=== PATIENT | male | born 1945 | race African-American/Black ===

== ENCOUNTER 2017-11-27 18:32 | Inpatient (IN) | payer OTHER ==
--- NOTE | 2017-11-27 19:12 | PDOC ---
History of Present Illness <Mary Aaron - Last Filed: 11/27/17 22:41> - General History Source: Patient Exam Limitations: Clinical Condition, Dementia - History of Present Illness Initial Comments: 11/27/17 19:06 Patient is a 72M with history of dementia, seizures (on keppra and dilantin), schizoaffective disorder, peripheral vascular disease coming from [facility] after being found on the floor. EMS reports that the patient was confused, but patient has dementia at baseline and usually is not oriented to time. Patient states that his chest hurt while he was on the floor, but he states that he does not have chest pain now. Denies fevers, chills, nausea, vomiting. Denies abdominal pain. Family denies history of cardiac issues. <Alex St - Last Filed: 11/28/17 01:48> - General Stated Complaint: DISTORTED VISION Time Seen by Provider: 11/27/17 18:49 Past History <Mary Aaron - Last Filed: 11/27/17 22:41> <Alex St - Last Filed: 11/28/17 01:48> - Past Medical History Allergies/Adverse Reactions: Allergies Allergy/AdvReac Type Severity Reaction Status Date / Time No Known Allergies Allergy Verified 11/27/17 20:59 Home Medications: Ambulatory Orders Acetaminophen 1,000 mg PO Q8H PRN 11/27/17 Bupropion HCl [Wellbutrin Xl] 300 mg PO DAILY 11/27/17 Dorzolamide/Timolol/Pf [Cosopt Pf Eye Drops] 1 each OP BID 11/27/17 Folic Acid 1 mg PO DAILY 11/27/17 Gabapentin [Neurontin -] 300 mg PO Q8H 11/27/17 Latanoprost 0.005% Eye Drops [Xalatan 0.005% Eye Drops -] 1 drop HS 11/27/17 Magnesium Hydrox 2400MG/30Ml [Milk of Magnesia -] 30 ml PO ONCE PRN 11/27/17 Nicotine Patch [Nicoderm Patch -] 1 patch TD DAILY 11/27/17 Phenytoin Na Extended [Dilantin -] 100 mg PO BID 11/27/17 Phenytoin Na Extended [Dilantin -] 200 mg PO HS 11/27/17 Sertraline HCl [Zoloft -] 50 mg PO DAILY 11/27/17 Sodium Phosphate,Jim Hogg-Dibasic [Fleet Enema] 133 ml RC DAILY PRN 11/27/17 Vitamin B Complex 1 each PO DAILY 11/27/17 levETIRAcetam [Keppra Oral Solution -] 750 mg PO BID 11/27/17 Review of Systems - Review of Systems Comments:: 11/27/17 19:10 GENERAL/CONSTITUTIONAL: No fever or chills. No weakness. HEAD, EYES, EARS, NOSE AND THROAT: No change in vision. No sore throat. CARDIOVASCULAR: + chest pain. No shortness of breath RESPIRATORY: No cough, wheezing, or hemoptysis. GASTROINTESTINAL: No nausea, vomiting, diarrhea or constipation. GENITOURINARY: No dysuria, frequency, or change in urination. MUSCULOSKELETAL: No joint or muscle swelling or pain. No neck or back pain. SKIN: No rash NEUROLOGIC: No headache, vertigo, loss of consciousness, or change in strength/ sensation. ENDOCRINE: No increased thirst. No abnormal weight change HEMATOLOGIC/LYMPHATIC: No anemia, easy bleeding, or history of blood clots. ALLERGIC/IMMUNOLOGIC: No hives or skin allergy. <Alex St - Last Filed: 11/28/17 01:48> *Physical Exam - Vital Signs Last Vital Signs Temp Pulse Resp BP Pulse Ox 98.0 F 122 H 16 108/97 100 11/27/17 18:34 11/27/17 18:34 11/27/17 18:34 11/27/17 18:34 11/27/17 18:34 <Mary Aaron - Last Filed: 11/27/17 22:41> - Physical Exam Comments: 11/27/17 19:10 GENERAL: Awake, alert, and fully oriented, in no acute distress HEAD: No signs of trauma, normocephalic, atraumatic EYES: PERRLA, EOMI, sclera anicteric, conjunctiva clear ENT: Auricles normal inspection, hearing grossly normal, nares patent, oropharynx clear without exudates. Moist mucosa NECK: Normal ROM, supple, no lymphadenopathy, JVD, or masses, no midline posterior tenderness LUNGS: No distress, speaks full sentences, clear to auscultation bilaterally HEART: Regular rate and rhythm, normal S1 and S2, no murmurs, rubs or gallops, peripheral pulses normal and equal bilaterally. ABDOMEN: Soft, nontender, normoactive bowel sounds. No guarding, no rebound. No masses EXTREMITIES: Normal inspection, Normal range of motion, no edema. No clubbing or cyanosis. NEUROLOGICAL: Cranial nerves II through XII grossly intact. Normal speech, no focal sensorimotor deficits SKIN: Warm, Dry, normal turgor, no rashes or lesions noted. <Alex St - Last Filed: 11/28/17 01:48> ED Treatment Course - LABORATORY CBC & Chemistry Diagram: 11/27/17 19:34 11/27/17 19:34 - ADDITIONAL ORDERS Additional order review: Laboratory Results 11/27/17 11/27/17 11/27/17 19:34 19:34 19:34 PT with INR 13.80 H INR 1.22 H Sodium 142 Potassium 4.8 Chloride 106 Carbon Dioxide 27 Anion Gap 9 BUN 10 Creatinine 1.1 Creat Clearance w eGFR > 60 Random Glucose 134 H Calcium 9.5 Magnesium 2.2 Total Bilirubin 0.4 AST 21 ALT 21 Alkaline Phosphatase 155 H Creatine Kinase 117 Troponin I 1.61 H* Total Protein 8.3 H Albumin 3.6 Phenytoin 14.0 11/27/17 19:34 RBC 5.05 MCV 87.2 MCHC 32.9 RDW 14.1 MPV 8.3 Neutrophils % 71.3 Lymphocytes % 17.7 Monocytes % 9.4 Eosinophils % 1.1 Basophils % 0.5 - Medications Given in the ED: ED Medications Discontinued Medications Generic Name Dose Route Start Last Admin Trade Name Freq PRN Reason Stop Dose Admin Heparin Sodium (Porcine) 5,000 unit 11/27/17 20:56 11/27/17 21:52 Heparin - IVPUSH 11/27/17 20:57 5,000 unit NOW ONE Administration <Mary Aaron - Last Filed: 11/27/17 22:41> - LABORATORY CBC & Chemistry Diagram: 11/27/17 19:34 11/27/17 19:34 - RADIOLOGY Radiology Studies Ordered: Category Date Time Status CHEST X-RAY PORTABLE* [RAD] Stat Radiology 11/27/17 19:00 Ordered <Alex St - Last Filed: 11/28/17 01:48> Medical Decision Making - Critical Care Time Total Critical Care Time (minutes): 120 Critical Care Statement: The care of this patient involved high complexity decision making to prevent further life threatening deterioration of the patient 's condition and/or to evaluate & treat vital organ system(s) failure or risk of failure. - Medical Decision Making 11/27/17 19:10 Patient is 72M with history of schizoaffective disorder, seizures, peripheral vascular disease here today after being found down. DDx weighted towards seizure vs syncope. Will evaluate with cardiac labs, dilantin and keppra levels sent for further workup by inpatient team. Head CT ordered as I cannot clear patient clinically due to dementia, but believe significant injury is very unlikely. 11/27/17 23:58 Received critical value of troponin of 1.6. Patient reassessed, found to have decreased mental status. EKG showed atrial tachycardia with rate of 139. Inverted p waves in II, do not believe sinus rhythm. Diffusely flattened t waves in lateral leads. Normal axis. Bedside ultrasound showed dilated right ventricle with bowing into left ventricle. DVT in right popliteal vein visualized as well. Patient given IV fluid bolus and taken to CT scan. Wet read of CT head showed no bleed. Wet read of CTA showed bilateral PE. Patient returned to ED, BP 70/50. Second IV placed with ultrasound. Additional fluids given. Given heparin bolus. Family consulted for tPA, either systemic or thrombectomy, family agreed to either. IR call placed, could see patient in an hour to do procedure. Patient blood pressures improved to 90/70. Now in IR. Admitted to ICU via [facility], approved by Dr White for ICU. 11/28/17 01:45 Received call from IR, patient hypotensive to 60/30s in IR suite. Central line placed by IR. Levophed drip started. Patient returned to ED, BPs improved, patient mental status has improved greatly. Last BP 117/70. <Alex St - Last Filed: 11/28/17 01:48> *DC/Admit/Observation/Transfer - Discharge Dispostion Decision to Admit order: Yes <Mary Aaron - Last Filed: 11/27/17 22:41> - Discharge Dispostion Decision to Admit order: Yes <Alex St - Last Filed: 11/28/17 01:48> Diagnosis at time of Disposition: Pulmonary embolism - Discharge Dispostion Condition at time of disposition: Critical
--- NOTE | 2017-11-27 19:25 | PDOC ---
Attending Attestation - Resident Resident Name: Alex St - ED Attending Attestation I have performed the following: I have examined & evaluated the patient, The case was reviewed & discussed with the resident, I agree w/resident's findings & plan, Exceptions are as noted - HPI HPI: 11/27/17 19:20 72 yo male with h/o seizure disorder, here today with unwitness fall,and breif confusion following. pt has had h/o seizures is on dilantin and keppra, today had u no think he was n with normal S1 anwitness episode. was found on floor, was confused a time. on waking up on the floor states he was having chest pain. is unable to further qualify pain. no cough no f/c no urinary complaints. no incontinence . no known cad or h/o stents. now currently at baseline per sister who is at the bedside. - Physicial Exam PE: 11/27/17 19:23 awake alert lungs clear bilaterally . heart rrr no mrg. abd soft nt nd. ext wwp. nuero alert oriented x 2 ( disoriented to year baseline), facies symmetric. CN intact. 5/5 right upper and lower extsremity. left upper ext 4+/5 , left leg 4/5. unsure Lactate on if new or old. ext atraumatic. - Medical Decision Making 11/27/17 19:24 differential diagnosis includes seizure, syncope from dysrhtymia, dehydration infection, acs. left sided weakness noted unsure of age of sxs. plan ct head r/ o traumatic injury or cva. cxr ekg trop labs dilantin and keppra levels. due to chest pain following pt will require admission for obs. for r/o dysrhtymia and acs. 11/27/17 22:32 pt becamse tachycardic with heart rate into the 130's. focused ED us TTE performed. ED focused TTE: indication: chest pain syncope suspected PE severely dilated RV noted, hypokinetic RV with tricuspid regurgitation appreciated on color doppler LV hypodistended, RV septum bulging into LV dilated RA also. no pericardial effusion impression: RV dilation and strain pattern bilateral dopplers performed lower extremities right common femoral scanned with color flow and full compression noted past bifurcation into femorals. right popliteal with incomplete compression, visualized central hyperechoic thrombus past trifurcation. no augmentation. left common femoral with full compression and flow past bifurcation into superficial and deep femorals. left popliteal veins clear, full compression impression: right popliteal DVT past trifurcation. 11/27/17 22:36 pt immediately sent to CT to evaluate for PE, ct head obtained prior to r/o traumatic bleed . negative for gross blood. cta with positive PE, due to large RV strain and pt becoming hypotensive, given heparain and heparin bolus. d/w IR dr. Ryan who agreed to do thrombectomy and localized TPA. d/w pt sister who is agreeable with procedure, pt is full code. bp improved slightly with iv fluids. <Mary Aaron - Last Filed: 11/27/17 22:32> - Medical Decision Making 11/27/17 20:23 Call placed to cardiology labor relations teacher, Dr. Segovia. Awaiting call back. 8:26pm Call returned from Dr. Braga, case was discussed with resident. 8:18pm Call placed to Dr. Miky Ryan, IR labor relations teacher, case was discussed. 11/28/17 12:34am Call placed to Dr. Lee, labor relations teacher plant physiology teacher, awaiting call back. 12:35am Call returned from Dr. Turner, labor relations teacher for Dr. Lee, case was discussed with resident. 01:05am Call placed to Dr. Turner, labor relations teacher for Dr. Lee, awaiting call back. 01:31am Call returned from Dr. Turner, case was discussed with resident. <Tr Higuera - Last Filed: 11/28/17 01:32> Heart Score/ECG Review #1 ECG reviewed & interpreted by me at: 20:29 General ECG Interpretation: Sinus Rhythm, Normal Intervals, No acute ischemic changes Compared to previous ECG there are: Other (sinus tachycardia 139 bpm, Q III, AVF, ST depression V4 - V5) <Mary Aaron - Last Filed: 11/27/17 22:32> Attestations - Attestations 11/27/17 20:28 Documentation prepared by Tr Higuera, acting as medical van driver for Mary Aaron MD. <Tr Higuera - Last Filed: 11/28/17 01:32>
[2017-11-27 19:52] LABS: BASO % 0.5 % (0-2.0); EOS % 1.1 % (0-4.5); HEMATOCRIT 44.1 % (35.4-49); HEMOGLOBIN 14.5 GM/dL (11.7-16.9); LYMPH % 17.7 % (8-40); MCH 28.7 pg (25.7-33.7); MCHC 32.9 g/dl (32.0-35.9); MEAN CELL VOLUME 87.2 fl (80-96); MEAN PLT VOLUME 8.3 fl (7.5-11.1); MONO % 9.4 % (3.8-10.2); NEUT % 71.3 % (42.8-82.8); PLATELET COUNT 197 K/MM3 (134-434); RBC 5.05 M/mm3 (4.00-5.60); RDW 14.1 % (11.9-15.9); WHITE BLOOD COUNT 11.2 K/mm3 (4.0-10.0)
[2017-11-27 20:05] LABS: INR 1.22 (0.83-1.09); PROTHROMBIN TIME (PATIENT) 13.8 SEC (9.7-13.0)
[2017-11-27 20:15] LABS: ALBUMIN 3.6 g/dl (3.4-5.0); ANION GAP 9 (8-16); BILIRUBIN,TOTAL 0.4 mg/dL (0.2-1.0); BLOOD UREA NITROGEN 10 mg/dL (7-18); CALCIUM 9.5 mg/dL (8.5-10.1); CHLORIDE 106 mmol/L (98-107); CO2 27 mmol/L (21-32); CREATININE 1.1 mg/dL (0.7-1.3); GLUCOSE,RANDOM 134 mg/dL (74-106); MAGNESIUM 2.2 mg/dL (1.8-2.4); POTASSIUM 4.8 mmol/L (3.5-5.1); SGOT/AST 21 U/L (15-37); SGPT/ALT 21 U/L (12-78); SODIUM 142 mmol/L (136-145); TOT PROT 8.3 g/dl (6.4-8.2)
[2017-11-27 20:18] LABS: ALK PHOS 155 U/L (45-117)
[2017-11-27] MEDS ORDERED: ASPIRIN 81 MG CHEWABLE TABLETS PO ONE (20:21)
[2017-11-27] MEDS ORDERED: HEPARIN NA (PORCINE) 5,000 UNITS/ML 1ML VIAL IVPUSH PRN ×2 (20:52)
[2017-11-27] MEDS ORDERED: HEPARIN NA (PORCINE) 5,000 UNITS/ML 1ML VIAL IVPUSH ONE (20:56)
[2017-11-27] MEDS ORDERED: HEPARIN - 25,000 UNIT in SODIUM CHLORIDE 495 ML IV SCH (21:00)
[2017-11-27] MEDS ORDERED: HEPARIN INFUSION - 25,000 UNITS/500 ML INFUS.BAG IVPB ONE (21:02)
[2017-11-27] MEDS ORDERED: HEPARIN NA (PORCINE) 5,000 UNITS/ML 1ML VIAL ONE (21:02)
--- NOTE | 2017-11-27 22:25 | CONSULT ---
Consultation: REQUESTING PROVIDER: CONSULT REQUEST: We have been asked to medically evaluate this patient for ICU monitoring. HISTORY OF PRESENT ILLNESS: 72 y/o male with PMH of DM, seizures (on keppra and dilantin), schizoaffective disorder, PVD, dementia at baseline was brought in by EMS after being found on the floor at the correction. The correction thought that he had suffered a seizure. Patient had chest pain while he was on the floor, however, when he arrived to the hospital patient did not have any chest pain. in the ED, patient was found to be tachycardic, with an elevated WBC count of 11.2. and an elevated troponin of 1.61. On CTA of chest patient was found to have B/L pulmonary embolism and also found to have a R popliteal DVT. Patient started on a heparin drip and underwent emergent thrombectomy with successful disruption of the clots. patient became hypotensive in the IR suite and a central line was placed and patient was started on levophed. REVIEW OF SYSTEMS: CONSTITUTIONAL: Absent: fever, chills, diaphoresis, generalized weakness, malaise, loss of appetite, weight change HEENT: Absent: rhinorrhea, nasal congestion, throat pain, throat swelling, difficulty swallowing, mouth swelling, ear pain, eye pain, visual changes CARDIOVASCULAR: Absent: chest pain, syncope, palpitations, irregular heart rate, lightheadedness , peripheral edema RESPIRATORY: Present: shortness of breath, Absent: dyspnea with exertion, orthopnea, wheezing, stridor, hemoptysis GASTROINTESTINAL: Absent: abdominal pain, abdominal distension, nausea, vomiting, diarrhea, constipation, melena, hematochezia GENITOURINARY: Absent: dysuria, frequency, urgency, hesitancy, hematuria, flank pain, genital pain MUSCULOSKELETAL: Absent: myalgia, arthralgia, joint swelling, back pain, neck pain SKIN: Absent: rash, itching, pallor HEMATOLOGIC/IMMUNOLOGIC: Absent: easy bleeding, easy bruising, lymphadenopathy, frequent infections ENDOCRINE: Absent: unexplained weight gain, unexplained weight loss, heat intolerance, cold intolerance NEUROLOGIC: Present: headache, Absent: focal weakness or paresthesias, dizziness, unsteady gait, seizure, mental status changes, bladder or bowel incontinence PSYCHIATRIC: Absent: anxiety, depression, suicidal or homicidal ideation, hallucinations. PHYSICAL EXAMINATION Vital Signs - 24 hr 11/27/17 18:34 Temperature 98.0 F Pulse Rate 122 H Respiratory 16 Rate Blood Pressure 108/97 O2 Sat by Pulse 100 Oximetry (%) GENERAL: Awake, alert, and slightly lethargic, in no acute distress. LUNGS: CTA B/L; no rales,rhonchi,wheezing. HEART: Regular rate and rhythm, normal S1 and S2 without murmur, rub or gallop. ABDOMEN: Soft, nontender, not distended, normoactive bowel sounds, no guarding, no rebound, no masses. No hepatomegaly or splenomegaly. MUSCULOSKELETAL: Normal range of motion at all joints. No bony deformities or tenderness. No CVA tenderness. EXTREMITIES:warm, well peffused, no LE edema NEUROLOGICAL: baseline dementia;; AAO X2 PSYCHIATRIC: Cooperative. Good eye contact. Appropriate mood and affect. SKIN: Warm, dry, normal turgor, no rashes or lesions noted. Laboratory Results - last 24 hr 11/27/17 11/27/17 11/27/17 19:34 19:34 19:34 WBC 11.2 H RBC 5.05 Hgb 14.5 Hct 44.1 MCV 87.2 MCH 28.7 MCHC 32.9 RDW 14.1 Plt Count 197 MPV 8.3 Absolute Neuts (auto) 8.0 Neutrophils % 71.3 Lymphocytes % 17.7 Monocytes % 9.4 Eosinophils % 1.1 Basophils % 0.5 Nucleated RBC % 0 PT with INR 13.80 H INR 1.22 H Sodium 142 Potassium 4.8 Chloride 106 Carbon Dioxide 27 Anion Gap 9 BUN 10 Creatinine 1.1 Creat Clearance w eGFR > 60 Random Glucose 134 H Calcium 9.5 Magnesium 2.2 Total Bilirubin 0.4 AST 21 ALT 21 Alkaline Phosphatase 155 H Creatine Kinase 117 Troponin I 1.61 H* Total Protein 8.3 H Albumin 3.6 Phenytoin 11/27/17 19:34 WBC RBC Hgb Hct MCV MCH MCHC RDW Plt Count MPV Absolute Neuts (auto) Neutrophils % Lymphocytes % Monocytes % Eosinophils % Basophils % Nucleated RBC % PT with INR INR Sodium Potassium Chloride Carbon Dioxide Anion Gap BUN Creatinine Creat Clearance w eGFR Random Glucose Calcium Magnesium Total Bilirubin AST ALT Alkaline Phosphatase Creatine Kinase Troponin I Total Protein Albumin Phenytoin 14.0 Active Medications Generic Name Dose Route Start Last Admin Trade Name Freq PRN Reason Stop Dose Admin Heparin Sodium (Porcine) 1,000 unit 11/27/17 20:52 Heparin - IVPUSH PRN PRN Heparin Heparin Sodium (Porcine) 5,000 unit 11/27/17 20:52 Heparin - IVPUSH PRN PRN Heparin Heparin Sodium (Porcine) 25, 500 mls @ 16 mls/hr 11/27/17 21:00 11/27/17 21: 51 000 unit/ Sodium Chloride IV 800 unit/hr TITR ESTEFANIA 16 mls/hr Administration Protocol 800 UNIT/HR Sodium Chloride 1,000 mls @ 83 mls/hr 11/27/17 21:45 Normal Saline - IV ASDIR [facility] ASSESSMENT/PLAN: 72 y/o male with PMH of DM, seizures (on keppra and dilantin), PVD, schizoaffective disorder, baseline dementia, presents to the ED from correction after falling and having pain in the chest accompanied by dyspnea, found to have B/L pulmonary emboli on CTA in addition to a DVT in the right popliteal vein. patient underwent an emergent thrombectomy with successful disruption of the clots. Patient currently has a central line and is on levophed. Bilateral Pulmonary Emboli: patient underwent thrombectomy for B/L PE received unclear if provoked or unprovoked -currently on Heparin drip -monitor INR -monitor CBC, BMP -on fluids @ 83mls/hr -HEME consult ordered -repeat CXR in AM Cardio: troponemia possibly 2/2 to PE vs. demand ischemia hypotension -needed central line in IR; currently on levophed 15 mcg -monitor hemodynamics, keep MAP at 65 -trend troponins - repeat EKG in AM Neuro: seizure disorder -restart home meds -keppra level Schizoaffective disorder: restart hoem medications DVT Prophylaxis: Heparin Drip F/E/N: NS @83mls/hr replete electrolytes when necessary dispo: continue ICU monitoring Dispo: We will continue to follow the patient. Thank you for this consultative opportunity. Problem List - Problems (1) Elevated troponin I level Code(s): R74.8 - ABNORMAL LEVELS OF OTHER SERUM ENZYMES (2) Hypotension Code(s): I95.9 - HYPOTENSION, UNSPECIFIED (3) Pulmonary embolism Code(s): I26.99 - OTHER PULMONARY EMBOLISM WITHOUT ACUTE COR PULMONALE (4) Schizoaffective disorder Code(s): F25.9 - SCHIZOAFFECTIVE DISORDER, UNSPECIFIED (5) Seizure disorder Code(s): G40.909 - EPILEPSY, UNSP, NOT INTRACTABLE, WITHOUT STATUS EPILEPTICUS Visit type - Emergency Visit Emergency Visit: Yes ED Registration Date: 11/27/17 Care time: The patient presented to the Emergency Department on the above date and was hospitalized for further evaluation of their emergent condition. - New Patient This patient is new to me today: Yes Date on this admission: 11/28/17 - Critical Care Critical Care patient: Yes Total Critical Care Time (in minutes): 35 Critical Care Statement: The care of this patient involved high complexity decision making to prevent further life threatening deterioration of the patient 's condition and/or to evaluate & treat vital organ system(s) failure or risk of failure.
[2017-11-27] MEDS: SODIUM CHLORIDE 1,000 ML IV SCH (22:46)
--- NOTE | 2017-11-27 23:27 | HP ---
CHIEF COMPLAINT: Chest Pain PCP: Dr. Askew HISTORY OF PRESENT ILLNESS: This is a 72 y/o man from [facility] with a PMHx of: Seizures (on Dilantin, Keppra), Schizoaffective Disorder, Dementia, PVD. BIBA to the ED for evaluation was found on the floor at the facility c/o chest pain which resolved in ED. Patient has Dementia unable to obtain HPI. Patient was transported to IR for Thrombectomy, TPA. ER course was notable for: (1) CTA- Multiple PE (2) Troponin 1.61 (3) Recent Travel: None PAST MEDICAL HISTORY: See HPI PAST SURGICAL HISTORY: Social History: Smoking: Unknown Alcohol: None Drugs: None Resides in SNF Family History: Unable to obtain Allergies No Known Allergies Allergy (Verified 11/27/17 20:59) HOME MEDICATIONS: Home Medications Medication Instructions Recorded Acetaminophen 1,000 mg PO Q8H PRN 11/27/17 Bupropion HCl [Wellbutrin Xl] 300 mg PO DAILY 11/27/17 Dorzolamide/Timolol/Pf [Cosopt Pf 1 each OP BID 11/27/17 Eye Drops] Folic Acid 1 mg PO DAILY 11/27/17 Gabapentin [Neurontin -] 300 mg PO Q8H 11/27/17 Latanoprost 0.005% Eye Drops 1 drop HS 11/27/17 [Xalatan 0.005% Eye Drops -] Magnesium Hydrox 2400MG/30Ml [Milk 30 ml PO ONCE PRN 11/27/17 of Magnesia -] Nicotine Patch [Nicoderm Patch -] 1 patch TD DAILY 11/27/17 Phenytoin Na Extended [Dilantin -] 100 mg PO BID 11/27/17 Phenytoin Na Extended [Dilantin -] 200 mg PO HS 11/27/17 Sertraline HCl [Zoloft -] 50 mg PO DAILY 11/27/17 Sodium Phosphate,[place]-Dibasic 133 ml RC DAILY PRN 11/27/17 [Fleet Enema] Vitamin B Complex 1 each PO DAILY 11/27/17 levETIRAcetam [Keppra Oral 750 mg PO BID 11/27/17 Solution -] REVIEW OF SYSTEMS Dementia: Unable to Obtain CONSTITUTIONAL: Absent: fever, chills, diaphoresis, generalized weakness, malaise, loss of appetite, weight change HEENT: Absent: rhinorrhea, nasal congestion, throat pain, throat swelling, difficulty swallowing, mouth swelling, ear pain, eye pain, visual changes CARDIOVASCULAR: Absent: chest pain, syncope, palpitations, irregular heart rate, lightheadedness , peripheral edema RESPIRATORY: Absent: cough, shortness of breath, dyspnea with exertion, orthopnea, wheezing, stridor, hemoptysis GASTROINTESTINAL: Absent: abdominal pain, abdominal distension, nausea, vomiting, diarrhea, constipation, melena, hematochezia GENITOURINARY: Absent: dysuria, frequency, urgency, hesitancy, hematuria, flank pain, genital pain MUSCULOSKELETAL: Absent: myalgia, arthralgia, joint swelling, back pain, neck pain SKIN: Absent: rash, itching, pallor HEMATOLOGIC/IMMUNOLOGIC: Absent: easy bleeding, easy bruising, lymphadenopathy, frequent infections ENDOCRINE: Absent: unexplained weight gain, unexplained weight loss, heat intolerance, cold intolerance NEUROLOGIC: Absent: headache, focal weakness or paresthesias, dizziness, unsteady gait, seizure, mental status changes, bladder or bowel incontinence PSYCHIATRIC: Absent: anxiety, depression, suicidal or homicidal ideation, hallucinations. PHYSICAL EXAMINATION Vital Signs - 24 hr 11/27/17 11/27/17 11/27/17 18:34 19:00 20:40 Temperature 98.0 F 98.0 F Pulse Rate 122 H 110 H Pulse Rate [ 120 H Apical] Respiratory 16 16 Rate Blood Pressure 108/97 Blood Pressure 98/52 [Right Arm] O2 Sat by Pulse 100 95 94 L Oximetry (%) 11/27/17 11/27/17 22:45 23:00 Temperature Pulse Rate Pulse Rate [ 111 H 114 H Apical] Respiratory 16 16 Rate Blood Pressure Blood Pressure 107/61 96/71 [Right Arm] O2 Sat by Pulse 98 98 Oximetry (%) GENERAL: Awake, Alert to name at baseline, no acute distress. HEAD: Normal with no signs of trauma. EYES: Pupils equal, round and reactive to light, extraocular movements intact, sclera anicteric, conjunctiva clear. No lid lag. EARS, NOSE, THROAT: Ears normal, nares patent, oropharynx clear without exudates. Dry mucous membranes. NECK: Normal range of motion, supple without lymphadenopathy, JVD, or masses. LUNGS: Breath sounds diminished to bases No wheezes, and no crackles. No accessory muscle use. HEART: Regular rate and rhythm, normal S1 and S2 without murmur, rub or gallop. ABDOMEN: Soft, nontender, not distended, normoactive bowel sounds, no guarding, no rebound, no masses. No hepatomegaly or splenomegaly. GROIN: Triple Lumen Catheter to R- groin MUSCULOSKELETAL: Normal range of motion at all joints. No bony deformities or tenderness. No CVA tenderness. UPPER EXTREMITIES: 2+ pulses, warm, well-perfused. No cyanosis. No clubbing. No peripheral edema. LOWER EXTREMITIES: 2+ pulses, warm, well-perfused. No calf tenderness. No peripheral edema. NEUROLOGICAL: Cranial nerves II-XII intact. Normal speech. Gait not observed. PSYCHIATRIC: Cooperative. Good eye contact. Appropriate mood and affect. SKIN: Warm, dry, normal turgor, no rashes or lesions noted, normal capillary refill. Laboratory Results - last 24 hr 11/27/17 11/27/17 11/27/17 19:34 19:34 19:34 WBC 11.2 H RBC 5.05 Hgb 14.5 Hct 44.1 MCV 87.2 MCH 28.7 MCHC 32.9 RDW 14.1 Plt Count 197 MPV 8.3 Absolute Neuts (auto) 8.0 Neutrophils % 71.3 Lymphocytes % 17.7 Monocytes % 9.4 Eosinophils % 1.1 Basophils % 0.5 Nucleated RBC % 0 PT with INR 13.80 H INR 1.22 H Sodium 142 Potassium 4.8 Chloride 106 Carbon Dioxide 27 Anion Gap 9 BUN 10 Creatinine 1.1 Creat Clearance w eGFR > 60 Random Glucose 134 H Calcium 9.5 Magnesium 2.2 Total Bilirubin 0.4 AST 21 ALT 21 Alkaline Phosphatase 155 H Creatine Kinase 117 Troponin I 1.61 H* Total Protein 8.3 H Albumin 3.6 Phenytoin 11/27/17 19:34 WBC RBC Hgb Hct MCV MCH MCHC RDW Plt Count MPV Absolute Neuts (auto) Neutrophils % Lymphocytes % Monocytes % Eosinophils % Basophils % Nucleated RBC % PT with INR INR Sodium Potassium Chloride Carbon Dioxide Anion Gap BUN Creatinine Creat Clearance w eGFR Random Glucose Calcium Magnesium Total Bilirubin AST ALT Alkaline Phosphatase Creatine Kinase Troponin I Total Protein Albumin Phenytoin 14.0 ASSESSMENT/PLAN: 72 y/o man Admitted to ICU for PE, Seizure Disorder, Elevated Troponin I for further evaluation of their emergent condition. Plan: 1. 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 Cardiology: Hypotension, Elevated Troponin Likely secondary to PE vs Demand Ischemia Started on Norepinephine in IR, will continue Continue IVF Serial Enzymes Appreciate Cardiology consult EKG- reviewed Repeat EKG in am 3. Neuro: Seizure Disorder Continue home meds Seizure Precautions Fall Precautions 4. Psych: Schizoaffective Disorder, Dementia Continue home meds 5. FEN - IVF - Replete lytes prn - NPO 6. DVT ppx - On Heparin Protocol for PE Code Status: Full Code Dispo: Requires Inpatient Care Problem List - Problem (1) Pulmonary embolism Code(s): I26.99 - OTHER PULMONARY EMBOLISM WITHOUT ACUTE COR PULMONALE (2) Hypotension Code(s): I95.9 - HYPOTENSION, UNSPECIFIED (3) Elevated troponin I level Code(s): R74.8 - ABNORMAL LEVELS OF OTHER SERUM ENZYMES (4) Seizure disorder Code(s): G40.909 - EPILEPSY, UNSP, NOT INTRACTABLE, WITHOUT STATUS EPILEPTICUS (5) Schizoaffective disorder Code(s): F25.9 - SCHIZOAFFECTIVE DISORDER, UNSPECIFIED (6) PVD (peripheral vascular disease) Code(s): I73.9 - PERIPHERAL VASCULAR DISEASE, UNSPECIFIED (7) Dementia Code(s): F03.90 - UNSPECIFIED DEMENTIA WITHOUT BEHAVIORAL DISTURBANCE Visit type - Emergency Visit Emergency Visit: Yes ED Registration Date: 11/27/17 Care time: The patient presented to the Emergency Department on the above date and was hospitalized for further evaluation of their emergent condition. - New Patient This patient is new to me today: Yes Date on this admission: 11/27/17 - Critical Care Critical Care patient: Yes Total Critical Care Time (in minutes): 40 Critical Care Statement: The care of this patient involved high complexity decision making to prevent further life threatening deterioration of the patient 's condition and/or to evaluate & treat vital organ system(s) failure or risk of failure. Hospitalist Screening - Colonoscopy Questionnaire Colonoscopy Questionnaire: Colonoscopy Questionnaire - Patient: 50 - 75 years old and never had a screening colonoscopy: Unknown History of colon or rectal polyps, or CA: Unknown History of IBD, Crohn's disease or UC: Unknown History of abdominal radiation therapy as a child: Unknown - Relative: 1 with colon or rectal CA, or polyps at age 60 or younger: Unknown Colon or rectal CA diagnosed at age 45 or younger: Unknown Multiple relatives with colon or rectal CA: Unknown - Outcome: Screening Result: Negative Screen
[2017-11-27] MEDS ORDERED: ALTEPLASE 50 MG VIAL IVPB ONE (23:45)
[2017-11-28] MEDS ORDERED: NOREPINEPHRINE BITARTRATE 4,000 MCG in DEXTROSE 5%-WATER - 496 ML IV SCH (00:45)
[2017-11-28] MEDS: HEPARIN INFUSION - 25,000 UNITS/500 ML INFUS.BAG IVPB SCH (07:08)
[2017-11-28] MEDS: NOREPINEPHRINE BITARTRATE 8,000 MCG in DEXTROSE 5%-WATER - 492 ML IV SCH ×2 (07:09→10:24)
[2017-11-28 07:13] LABS: BASO % 0.3 % (0-2.0); EOS % 0.1 % (0-4.5); HEMATOCRIT 35.9 % (35.4-49); HEMOGLOBIN 11.8 GM/dL (11.7-16.9); LYMPH % 16.3 % (8-40); MCH 29.2 pg (25.7-33.7); MCHC 33.1 g/dl (32.0-35.9); MEAN CELL VOLUME 88.5 fl (80-96); MEAN PLT VOLUME 8.9 fl (7.5-11.1); MONO % 11.5 % (3.8-10.2); NEUT % 71.8 % (42.8-82.8); PLATELET COUNT 162 K/MM3 (134-434); RBC 4.05 M/mm3 (4.00-5.60); RDW 14.4 % (11.9-15.9); WHITE BLOOD COUNT 13.5 K/mm3 (4.0-10.0)
[2017-11-28 07:53] LABS: CHLORIDE 114 mmol/L (98-107); SODIUM 145 mmol/L (136-145)
[2017-11-28 08:07] LABS: ALBUMIN 2.7 g/dl (3.4-5.0); ALK PHOS 120 U/L (45-117); ANION GAP 12 (8-16); BLOOD UREA NITROGEN 15 mg/dL (7-18); CO2 19 mmol/L (21-32); CREATININE 1.1 mg/dL (0.7-1.3); GLUCOSE,RANDOM 149 mg/dL (74-106); PHOSPHOROUS 2.2 mg/dL (2.5-4.9); SGPT/ALT 100 U/L (12-78); TOT PROT 6.4 g/dl (6.4-8.2)
[2017-11-28 08:22] LABS: MAGNESIUM 2.1 mg/dL (1.8-2.4); SGOT/AST 33 U/L (15-37)
[2017-11-28] MEDS ORDERED: PNEUMOC 13-VAL CONJ-DIP CRM/PF 0.5 ML DISP.SYRIN IM ONE (10:00)
[2017-11-28] MEDS ORDERED: NOREPINEPHRINE BITARTRATE 4 MG/4 ML ML IV ONE (10:11)
--- NOTE | 2017-11-28 10:12 | CONSULT ---
Consult Consult Specialty:: Hematology Referred by:: ICU - medicine Reason for Consultation:: Recent PE - History of Present Illness Chief Complaint: Patient, resident of [place], found on floor, complaining of chest pain, brought to ER, found to have bilateral PE, with positive tropinins, RV dilatation, and LE DVT. Underwent thrombolysis with good outcome. Hypotensive after procedure, and admitted to ICU, with inotropic support. Patient feeling well now, no complaints. History of Present Illness: As above. Preceding history not known. Patient denies recent unusual circumstances potentially putting him at risk of thromboembolic events. Baseline dementia, questionable reliability of patient's history. Denies knowledge of prior thromboembolic events. 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 Cardio/Vascular: Yes: Other (Peripheral vascular disease.) - Alcohol/Substance Use Hx Alcohol Use: No - Smoking History Smoking history: Never smoked Have you smoked in the past 12 months: No Home Medications - Allergies Allergies/Adverse Reactions: Allergies Allergy/AdvReac Type Severity Reaction Status Date / Time No Known Allergies Allergy Verified 11/27/17 20:59 - Home Medications Home Medications: Ambulatory Orders Acetaminophen 1,000 mg PO Q8H PRN 11/27/17 Bupropion HCl [Wellbutrin Xl] 300 mg PO DAILY 11/27/17 Dorzolamide/Timolol/Pf [Cosopt Pf Eye Drops] 1 each OP BID 11/27/17 Folic Acid 1 mg PO DAILY 11/27/17 Gabapentin [Neurontin -] 300 mg PO Q8H 11/27/17 Latanoprost 0.005% Eye Drops [Xalatan 0.005% Eye Drops -] 1 drop HS 11/27/17 Magnesium Hydrox 2400MG/30Ml [Milk of Magnesia -] 30 ml PO ONCE PRN 11/27/17 Nicotine Patch [Nicoderm Patch -] 1 patch TD DAILY 11/27/17 Phenytoin Na Extended [Dilantin -] 100 mg PO BID 11/27/17 Phenytoin Na Extended [Dilantin -] 200 mg PO HS 11/27/17 Sertraline HCl [Zoloft -] 50 mg PO DAILY 11/27/17 Sodium Phosphate,[place]-Dibasic [Fleet Enema] 133 ml RC DAILY PRN 11/27/17 Vitamin B Complex 1 each PO DAILY 11/27/17 levETIRAcetam [Keppra Oral Solution -] 750 mg PO BID 11/27/17 Physical Exam Vital Signs: Vital Signs Temperature 97.7 F 11/28/17 06:00 Pulse Rate 87 11/28/17 08:00 Respiratory Rate 18 11/28/17 08:43 Blood Pressure 120/73 11/28/17 08:00 O2 Sat by Pulse Oximetry (%) 97 11/28/17 08:43 Constitutional: Yes: Well Nourished, Calm. No: Diaphoresis Eyes: Yes: Conjunctiva Clear. No: Sclera Icterus HENT: Yes: Atraumatic, Normocephalic Neck: Yes: Supple Cardiovascular: Yes: Regular Rate and Rhythm, S1, S2. No: Gallop, Murmur Respiratory: Yes: CTA Bilaterally, Diminished Gastrointestinal: Yes: Normal Bowel Sounds, Soft. No: Ascites, Distention, Hepatomegaly, Splenomegaly Musculoskeletal: Yes: Joint Swelling (RLE swelling below level of knee) Peripheral Pulses WNL: Yes Integumentary: No: Bruising, Petechiae Neurological: Yes: Alert, Oriented, Cran Nerves II-XII Intact ...Motor Strength: WNL Psychiatric: Yes: WNL Labs: CBC, BMP 11/28/17 05:30 11/28/17 05:30 Assessment/Plan [facility] resident, with apparently unprovoked, significant thromboembolic event ( large PE, with troponin spill and RV dilatation), now s/p successful thrombolysis. Hypotensive following procedure but doing well on levophed. Significant drop in Hct noted over night. May be related to fluid administered, but needs close monitoring of Hct, in light of significant risk of hemorrhage, s /p tPA, and while on heparin gtt. Will require 3 months of anticoagulation, and the consideration for extension of AC based on assessment of risk of hemorrhage on AC, vs risk of recurrent events. If this index event is confirmed to unprovoked, with no revresible risk factors, then in light of severity of event, a strong case can made for extended (lifelong) AC, assuming no contraindications. Going forward, if patient is on antiseizure medications then drug-interaction profile may favor use of a DOAC, vs warfarin. Age appropriate cancer screening. Please call with questions.
--- NOTE | 2017-11-28 10:37 | CON.CARD ---
Consult Consult Specialty:: cardio - History of Present Illness Chief Complaint: found on floor History of Present Illness: 72 yo M [facility] resident found on floor at facility, sent to ER. reported CP in ER. EKG showed atrial tach at 130s bpm. CTA showed bilateral PEs, LE duplex + DVT. bedside echo in ER reportedly with RV dilation. 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 Cardio/Vascular: Yes: Other (Peripheral vascular disease.) - Alcohol/Substance Use Hx Alcohol Use: No - Smoking History Smoking history: Never smoked Have you smoked in the past 12 months: No Home Medications - Allergies Allergies/Adverse Reactions: Allergies Allergy/AdvReac Type Severity Reaction Status Date / Time No Known Allergies Allergy Verified 11/27/17 20:59 - Home Medications Home Medications: Ambulatory Orders Acetaminophen 1,000 mg PO Q8H PRN 11/27/17 Bupropion HCl [Wellbutrin Xl] 300 mg PO DAILY 11/27/17 Dorzolamide/Timolol/Pf [Cosopt Pf Eye Drops] 1 each OP BID 11/27/17 Folic Acid 1 mg PO DAILY 11/27/17 Gabapentin [Neurontin -] 300 mg PO Q8H 11/27/17 Latanoprost 0.005% Eye Drops [Xalatan 0.005% Eye Drops -] 1 drop HS 11/27/17 Magnesium Hydrox 2400MG/30Ml [Milk of Magnesia -] 30 ml PO ONCE PRN 11/27/17 Nicotine Patch [Nicoderm Patch -] 1 patch TD DAILY 11/27/17 Phenytoin Na Extended [Dilantin -] 100 mg PO BID 11/27/17 Phenytoin Na Extended [Dilantin -] 200 mg PO HS 11/27/17 Sertraline HCl [Zoloft -] 50 mg PO DAILY 11/27/17 Sodium Phosphate,[place]-Dibasic [Fleet Enema] 133 ml RC DAILY PRN 11/27/17 Vitamin B Complex 1 each PO DAILY 11/27/17 levETIRAcetam [Keppra Oral Solution -] 750 mg PO BID 11/27/17 Family Disease History - Family Disease History Family History: Denies (no known cmp) Review of Systems - Review of Systems Constitutional: denies: Chills, Fever Eyes: denies: Eye Pain HENT: denies: Nasal Congestion Neck: denies: Stiffness Cardiovascular: denies: Palpitations Respiratory: denies: Orthopnea, PND Gastrointestinal: denies: Diarrhea, Rectal Bleeding Genitourinary: denies: Burning, Hematuria Musculoskeletal: denies: Muscle Pain Integumentary: denies: Rash Neurological: denies: Numbness, Seizure, Syncope Endocrine: denies: Excessive Sweating Hematology/Lymphatic: denies: Excessive Bleeding Vital Signs: Vital Signs Temperature 97.7 F 11/28/17 06:00 Pulse Rate 94 H 11/28/17 10:24 Respiratory Rate 18 11/28/17 08:43 Blood Pressure 106/66 11/28/17 10:24 O2 Sat by Pulse Oximetry (%) 97 11/28/17 08:43 Constitutional: Yes: Well Nourished, No Distress Eyes: No: Sclera Icterus HENT: No: Nasal Congestion Neck: No: Decreased ROM Respiratory: Yes: CTA Bilaterally. No: Accessory Muscle Use, Rales, Wheezes Gastrointestinal: Yes: Normal Bowel Sounds. No: Distention, Hepatomegaly, Palpable Mass, Tenderness Cardiovascular: Yes: Regular Rate and Rhythm JVD: No Carotid Bruit: No PMI: Non-Displaced Heart Sounds: Yes: S1, S2. No: Gallop Murmur: No: Systolic Murmur, Diastolic Murmur Musculoskeletal: Yes: Other (No kyphosis) Extremities: No: Cool, Cyanosis Edema: No Peripheral Pulses: 2+ Left Carotid, 2+ Right Carotid, 2+ Left Doralis Pedis, 2+ Right Dorsalis Pedis Integumentary: No: Jaundice Neurological: Yes: Alert, Oriented (x3) Psychiatric: No: Agitated - Other Data Labs, Other Data: CBC, BMP 11/28/17 05:30 11/28/17 05:30 INR, PTT INR 1.22 (0.83-1.09) H 11/27/17 19:34 Troponin, BNP 11/27/17 11/28/17 19:34 05:30 Troponin I 1.61 H* 1.36 H* Troponin, BNP 11/27/17 11/28/17 19:34 05:30 Troponin I 1.61 H* 1.36 H* Laboratory Tests 11/28/17 11/28/17 11/28/17 05:30 05:30 05:30 WBC 13.5 H Hgb 11.8 Plt Count 162 Sodium 145 Potassium 4.0 Carbon Dioxide 19 L D BUN 15 Creatinine 1.1 AST 33 D ALT 100 H D Troponin I 1.36 H* Albumin 2.7 L Assessment/Plan ECG 11/27 (20:31): atrial tach 139 bpm, inferior Q waves, mild nonsp ST abn (no old) tele: NSR acute PE: -s/p intra-PA lytics and mechanical thrombectomy by IR overnight -continue heparin for now -plan to initiate Eliquis vs Xarelto once stable with no need for invasive procedures -check echo -? unprovoked event--duration of AC per heme elevated troponin: -initial trop 1.6-->trending down -likely due to PE, with RV strain noted on unofficial echo in ER -defer ischemia eval atrial tachycardia: -ECG with atrial tach at HR 130s in ER -likely triggered by acute PE -now in sinus. -defer AVN blockers for now, monitor tele est time spent in data review, pt exam, and formulation of mgmt plan of potentially life-threatening medical problems = 35 min
--- NOTE | 2017-11-28 10:48 | PN ---
Progress Note, Physician History of Present Illness: patient seen and examined in ICU Events noted chart reviewed Discussed with critical care team--attending as well as the resident in summary--- sent from custodial due to syncope workup showed right ventricular strain--- Further workup showed DVT as well as PE Thrombectomy done under IR guidance As well as TPA--localized admitted to ICU On heparin drip and pressors Patient comfortable Denies pain wants to eat food Also requesting nicotine patch--- having cravings Denies chest pain denies abdominal pain Mood is stable - Current Medication List Current Medications: Active Medications Chlorhexidine Gluconate (Hibiclens For Decolonization -) 1 applic TP HS ESTEFANAI Folic Acid (Folic Acid -) 1 mg PO DAILY ESTEFANIA Gabapentin (Neurontin -) 300 mg PO Q8H ESTEFANIA Heparin Sodium (Porcine) (Heparin -) 1,000 unit IVPUSH PRN PRN PRN Reason: Heparin Heparin Sodium (Porcine) (Heparin -) 5,000 unit IVPUSH PRN PRN PRN Reason: Heparin Sodium Chloride (Normal Saline -) 1,000 mls @ 83 mls/hr IV ASDIR ESTEFANIA Last Admin: 11/27/17 22:46 Dose: 83 mls/hr Heparin Sodium/Dextrose (Heparin Infusion -) 25,000 units in 500 mls @ 22.861 mls/hr IVPB TITR ESTEFANIA; Protocol Last Admin: 11/28/17 07:08 Dose: 18 units/kg/hr, 22.861 mls/hr Norepinephrine Bitartrate 8, (000 mcg/ Dextrose) 500 mls @ 18.75 mls/hr IV TITR ESTEFANIA; Protocol Last Admin: 11/28/17 10:24 Dose: 15 mcg/min, 56.25 mls/hr Latanoprost (Xalatan 0.005% Eye Drops -) 1 drop OD HS ESTEFANIA Levetiracetam (Keppra Oral Solution -) 750 mg PO BID ESTEFANIA Mupirocin (Bactroban Ointment (For Decolonization) -) 1 applic NS BID ESTEFANIA Stop: 12/03/17 09:59 Nicotine (Nicoderm Patch -) 21 mg TD DAILY ESTEFANIA Non-Formulary Medication (Bupropion Hcl [Wellbutrin Xl]) 300 mg PO DAILY ESTEFANIA Non-Formulary Medication (Dorzolamide/Timolol/Pf [Cosopt Pf Eye Drops]) 1 each OP BID ESTEFANIA Non-Formulary Medication (Vitamin B Complex [Vitamin B Complex]) 1 each PO DAILY ESTEFANIA Phenytoin Sodium (Dilantin -) 100 mg PO BID ESTEFANIA Sertraline HCl (Zoloft -) 50 mg PO DAILY ESTEFANIA - Objective Vital Signs: Vital Signs Temperature 97.7 F 11/28/17 06:00 Pulse Rate 94 H 11/28/17 10:24 Respiratory Rate 18 11/28/17 08:43 Blood Pressure 106/66 11/28/17 10:24 O2 Sat by Pulse Oximetry (%) 97 11/28/17 08:43 Constitutional: Yes: No Distress, Calm Eyes: Yes: Conjunctiva Clear Neck: Yes: Supple, Trachea Midline Cardiovascular: Yes: Regular Rate and Rhythm Respiratory: Yes: Diminished Gastrointestinal: Yes: Normal Bowel Sounds, Soft Edema: No Neurological: Yes: Alert Psychiatric: Yes: Alert Labs: CBC, BMP 11/28/17 05:30 11/28/17 05:30 INR, PTT INR 1.22 (0.83-1.09) H 11/27/17 19:34 Problem List - Problems (1) DVT (deep venous thrombosis) Code(s): I82.409 - ACUTE EMBOLISM AND THOMBOS UNSP DEEP VN UNSP LOWER EXTREMITY (2) Elevated troponin I level Code(s): R74.8 - ABNORMAL LEVELS OF OTHER SERUM ENZYMES (3) Hypotension Code(s): I95.9 - HYPOTENSION, UNSPECIFIED (4) Pulmonary embolism Code(s): I26.99 - OTHER PULMONARY EMBOLISM WITHOUT ACUTE COR PULMONALE (5) Schizoaffective disorder Code(s): F25.9 - SCHIZOAFFECTIVE DISORDER, UNSPECIFIED (6) Seizure disorder Code(s): G40.909 - EPILEPSY, UNSP, NOT INTRACTABLE, WITHOUT STATUS EPILEPTICUS Assessment/Plan close monitoring in ICU (pressors--tapered as tolerated heparin monitor labs Medications at custodial reviewed--- started Started on diet Nicotine patch Cardiology to follow Demand ischemia--- positive troponins Overall condition remains critical Discussed in detail with critical team Critical care time--- 35 minutes Will follow Also discussed with nursing staff
--- NOTE | 2017-11-28 11:57 | PN ---
Teaching Attending Note Name of Resident: Ramon Mosley ATTENDING PHYSICIAN STATEMENT I saw and evaluated the patient. I reviewed the resident's note and discussed the case with the resident. I agree with the resident's findings and plan as documented. SUBJECTIVE: Pt seen and examined in the ICU. Remains on low dose levophed gtt. Still some shortness of breath but reports chest pain resolved. OBJECTIVE: Vital Signs Period Temp Pulse Resp BP Sys/Chacon Pulse Ox Last 24 Hr 96.5 F-98.0 F 86-196 15-26 59-120/39-97 94-100 Intake & Output 11/25/17 11/26/17 11/27/17 11/28/17 23:59 23:59 23:59 23:59 Intake Total 802.0 Balance 802.0 Weight 63.503 kg 67.585 kg Gen: NAD at rest Heart: RRR Lung: decreased breath sounds at the bases Abd: soft, nontender Ext: no edema CBC, BMP 11/28/17 05:30 11/28/17 05:30 Active Medications Bupropion HCl (Wellbutrin Xl -) 300 mg PO DAILY [facility] Chlorhexidine Gluconate (Hibiclens For Decolonization -) 1 applic TP HS [facility] Dorzolamide HCl (Trusopt 2%) 1 drop OU BID [facility] Folic Acid (Folic Acid -) 1 mg PO DAILY [facility] Gabapentin (Neurontin -) 300 mg PO Q8H [facility] Heparin Sodium (Porcine) (Heparin -) 1,000 unit IVPUSH PRN PRN PRN Reason: Heparin Heparin Sodium (Porcine) (Heparin -) 5,000 unit IVPUSH PRN PRN PRN Reason: Heparin Sodium Chloride (Normal Saline -) 1,000 mls @ 83 mls/hr IV ASDIR [facility] Last Admin: 11/27/17 22:46 Dose: 83 mls/hr Heparin Sodium/Dextrose (Heparin Infusion -) 25,000 units in 500 mls @ 22.861 mls/hr IVPB TITR [facility]; Protocol Last Admin: 11/28/17 07:08 Dose: 18 units/kg/hr, 22.861 mls/hr Norepinephrine Bitartrate 8, (000 mcg/ Dextrose) 500 mls @ 18.75 mls/hr IV TITR [facility]; Protocol Last Admin: 11/28/17 10:24 Dose: 15 mcg/min, 56.25 mls/hr Latanoprost (Xalatan 0.005% Eye Drops -) 1 drop OD HS [facility] Levetiracetam (Keppra Oral Solution -) 750 mg PO BID [facility] Multivitamins (Total B With C -) 1 each PO DAILY [facility] Mupirocin (Bactroban Ointment (For Decolonization) -) 1 applic NS BID [facility] Stop: 12/03/17 09:59 Nicotine (Nicoderm Patch -) 21 mg TD DAILY [facility] Phenytoin Sodium (Dilantin -) 100 mg PO BID [facility] Sertraline HCl (Zoloft -) 50 mg PO DAILY [facility] Timolol Maleate (Timoptic 0.5%) 1 drop OU BID [facility] ASSESSMENT AND PLAN: Acute Pulmonary Embolism s/p catheter directed thrombectomy/thrombolysis +Troponins Cardiogenic vs Obstructive Shock Seizure Disorder Schizoaffective Disorder Dementia - continue anticoagulation - echocardiogram - LE dopplers - O2 to keep SpO2>90% - taper off levophed gtt, maintain MAP >65 - PO as tolerated - continue ICU monitoring critical care time spent in reviewing chart, evaluating patient and formulating plan 35 min
--- NOTE | 2017-11-28 14:41 | PN ---
Physical Exam: SUBJECTIVE: Patient seen and examined at bedside. Feels better today. No leg pain or chest pain. No issues with breathing. OBJECTIVE: Vital Signs Temperature 97.7 F 11/28/17 06:00 Pulse Rate 94 H 11/28/17 10:24 Respiratory Rate 18 11/28/17 08:43 Blood Pressure 106/66 11/28/17 10:24 O2 Sat by Pulse Oximetry (%) 97 11/28/17 08:43 GENERAL: Awake, alert, and oriented x2, in no acute distress. LUNGS: B/L coarse breath sounds. Decreased breath sounds at L base HEART: Regular rate and rhythm, normal S1 and S2 ABDOMEN: Soft, nontender, not distended, normoactive bowel soundss. EXTREMITIES:warm, well perfused, no LE edema. No calf tenderness. NEUROLOGICAL: baseline dementia; AAO X2 PSYCHIATRIC: Cooperative. Good eye contact. Appropriate mood and affect. SKIN: Warm, dry Laboratory Results - last 24 hr 11/27/17 11/27/17 11/27/17 19:34 19:34 19:34 WBC 11.2 H RBC 5.05 Hgb 14.5 Hct 44.1 MCV 87.2 MCH 28.7 MCHC 32.9 RDW 14.1 Plt Count 197 MPV 8.3 Absolute Neuts (auto) 8.0 Neutrophils % 71.3 Lymphocytes % 17.7 Monocytes % 9.4 Eosinophils % 1.1 Basophils % 0.5 Nucleated RBC % 0 PT with INR 13.80 H INR 1.22 H Sodium 142 Potassium 4.8 Chloride 106 Carbon Dioxide 27 Anion Gap 9 BUN 10 Creatinine 1.1 Creat Clearance w eGFR > 60 Random Glucose 134 H Calcium 9.5 Phosphorus Magnesium 2.2 Total Bilirubin 0.4 AST 21 ALT 21 Alkaline Phosphatase 155 H Creatine Kinase 117 Troponin I 1.61 H* Total Protein 8.3 H Albumin 3.6 Phenytoin 11/27/17 11/28/17 11/28/17 19:34 05:30 05:30 WBC 13.5 H RBC 4.05 Hgb 11.8 Hct 35.9 D MCV 88.5 MCH 29.2 MCHC 33.1 RDW 14.4 Plt Count 162 MPV 8.9 Absolute Neuts (auto) 9.7 H Neutrophils % 71.8 Lymphocytes % 16.3 Monocytes % 11.5 H Eosinophils % 0.1 D Basophils % 0.3 Nucleated RBC % 0 PT with INR INR Sodium 145 Potassium 4.0 Chloride 114 H Carbon Dioxide 19 L D Anion Gap 12 BUN 15 Creatinine 1.1 Creat Clearance w eGFR > 60 Random Glucose 149 H Calcium 8.0 L Phosphorus 2.2 L Magnesium 2.1 Total Bilirubin 1.0 AST 33 D ALT 100 H D Alkaline Phosphatase 120 H D Creatine Kinase Troponin I Total Protein 6.4 Albumin 2.7 L Phenytoin 14.0 11/28/17 05:30 WBC RBC Hgb Hct MCV MCH MCHC RDW Plt Count MPV Absolute Neuts (auto) Neutrophils % Lymphocytes % Monocytes % Eosinophils % Basophils % Nucleated RBC % PT with INR INR Sodium Potassium Chloride Carbon Dioxide Anion Gap BUN Creatinine Creat Clearance w eGFR Random Glucose Calcium Phosphorus Magnesium Total Bilirubin AST ALT Alkaline Phosphatase Creatine Kinase Troponin I 1.36 H* Total Protein Albumin Phenytoin Active Medications Generic Name Dose Route Start Last Admin Trade Name Freq PRN Reason Stop Dose Admin Bupropion HCl 300 mg 11/29/17 10:00 Wellbutrin Xl - PO DAILY [facility] Chlorhexidine Gluconate 1 applic 11/28/17 22:00 Hibiclens For Decolonization - TP HS [facility] Dorzolamide HCl 1 drop 11/28/17 22:00 Trusopt 2% OU BID [facility] Folic Acid 1 mg 11/29/17 10:00 Folic Acid - PO DAILY [facility] Gabapentin 300 mg 11/29/17 08:00 Neurontin - PO Q8H [facility] Heparin Sodium (Porcine) 1,000 unit 11/27/17 20:52 Heparin - IVPUSH PRN PRN Heparin Heparin Sodium (Porcine) 5,000 unit 11/27/17 20:52 Heparin - IVPUSH PRN PRN Heparin Sodium Chloride 1,000 mls @ 83 mls/hr 11/27/17 21:45 11/27/17 22:46 Normal Saline - IV 83 mls/hr ASDIR [facility] Administration Heparin Sodium/Dextrose 25,000 units in 500 mls @ 22.861 mls/hr 11/28/17 01: 45 11/28/17 07:08 Heparin Infusion - IVPB 18 units/kg/hr TITR [facility] 22.861 mls/hr Administration Protocol 18 UNITS/KG/HR Norepinephrine Bitartrate 8, 500 mls @ 18.75 mls/hr 11/28/17 06:58 08/19/18 10:24 000 mcg/ Dextrose IV 15 mcg/min TITR [facility] 56.25 mls/hr Administration Protocol 5 MCG/MIN Latanoprost 1 drop 11/28/17 22:00 Xalatan 0.005% Eye Drops - OD HS [facility] Levetiracetam 750 mg 11/28/17 22:00 Keppra Oral Solution - PO BID [facility] Multivitamins 1 each 11/29/17 10:00 Total B With C - PO DAILY [facility] Mupirocin 1 applic 11/28/17 10:00 Bactroban Ointment (For Decolonization) - NS 12/03/17 09:59 BID [facility] Nicotine 21 mg 11/29/17 10:00 Nicoderm Patch - TD DAILY [facility] Phenytoin Sodium 100 mg 11/28/17 22:00 Dilantin - PO BID [facility] Sertraline HCl 50 mg 11/29/17 10:00 Zoloft - PO DAILY [facility] Timolol Maleate 1 drop 11/28/17 22:00 Timoptic 0.5% OU BID [facility] ASSESSMENT/PLAN: 72 y/o M w/PMH of DM, seizures (on keppra and dilantin), PVD, schizoaffective d/ o, dementia presented to ER from [place] for CP w/dyspnea. Found to have b/l PE on CTA and subsequently treated with catheter directed TPA/thrombectomy and currently on heparin drip. -b/l PE -f/u echo, B/L LE duplex, trops peaked -monitor ptt -f/u heme recs -on heparin drip -improving -on levophed, wean to keep MAP >65 -O2 supplementation to keep O2 saturation above 90% -Elevated trops likely secondary to PE -trops have peaked -Hx of seizures -c/w keppra and dilantin -Schizoaffective d/o -c/w wellbutrin and sertraline -DVT ppx -on heparin drip -FEN -NS @ 83 ml/hr -monitor electrolytes -regular diet -Dispo: continue to monitor in the ICU Visit type - Emergency Visit Emergency Visit: Yes ED Registration Date: 11/27/17 Care time: The patient presented to the Emergency Department on the above date and was hospitalized for further evaluation of their emergent condition. - New Patient This patient is new to me today: Yes Date on this admission: 11/28/17 - Critical Care Critical Care patient: Yes Total Critical Care Time (in minutes): 48 Critical Care Statement: The care of this patient involved high complexity decision making to prevent further life threatening deterioration of the patient 's condition and/or to evaluate & treat vital organ system(s) failure or risk of failure.
[2017-11-28] MEDS ORDERED: NICOTINE 21 MG/24 HOURS TOPICAL PATCH TD ONE (17:24)
[2017-11-28] MEDS: MUPIROCIN 2% TOPICAL OINTMENT FOR DECOLONIZATION NS SCH ×2 (18:25→22:42)
--- NOTE | 2017-11-28 19:15 | EKG ---
Test Reason : Blood Pressure : / mmHG Vent. Rate : 087 BPM Atrial Rate : 087 BPM P-R Int : 168 ms QRS Dur : 072 ms QT Int : 378 ms P-R-T Axes : 066 -27 035 degrees QTc Int : 454 ms SINUS RHYTHM WITH PREMATURE ATRIAL COMPLEXES LOW VOLTAGE QRS BORDERLINE ECG Confirmed by MD EVENS, GILL ([id number]) on 11/28/2017 7:15:37 PM Referred By: Kalyn CHAND Confirmed By:GILL HORNER MD
--- NOTE | 2017-11-28 19:19 | EKG ---
Test Reason : Blood Pressure : / mmHG Vent. Rate : 139 BPM Atrial Rate : 139 BPM P-R Int : 126 ms QRS Dur : 094 ms QT Int : 314 ms P-R-T Axes : -85 -57 012 degrees QTc Int : 477 ms UNUSUAL P AXIS AND SHORT NE, PROBABLE JUNCTIONAL TACHYCARDIA LEFT AXIS DEVIATION INFERIOR INFARCT , AGE UNDETERMINED ABNORMAL ECG NO PREVIOUS ECGS AVAILABLE Confirmed by MD EVENS, GILL ([id number]) on 11/28/2017 7:18:59 PM Referred By: Confirmed By:GILL HORNER MD
[2017-11-28] MEDS ORDERED: PATIENT'S OWN MEDICATION (NON-FORMULARY) (Dorzolamide/Timolol/Pf [Cosopt Pf Eye Drops] 1 E OP SCH (22:00)
[2017-11-28] MEDS ORDERED: LATANOPROST 0.005% OPHTH SOLN 2.5ML BOTTLE OD SCH (22:00)
[2017-11-28] MEDS ORDERED: CHLORHEXIDINE GLUCONATE 4% CLEANSER FOR DECOLONIZATION TP SCH (22:00)
[2017-11-28] MEDS: TIMOLOL 0.5% OPHTHALMIC SOL 5 ML BOTTLE OU SCH (22:37)
[2017-11-28] MEDS: DORZOLAMIDE 2% HCL OPHTHALMIC SOLUTION 10 ML BOTTLE OU SCH (22:38)
[2017-11-28] MEDS: levETIRAcetam 500 MG/5 ML ORAL SOLUTION (UNIT-DOSE CUPS) PO SCH (22:39)
[2017-11-28] MEDS: PHENYTOIN NA EXTENDED 100 MG CAPSULE (FP) PO SCH (22:41)
[2017-11-28] MEDS: SODIUM CHLORIDE 1,000 ML IV SCH (22:43)
[2017-11-28] MEDS ORDERED: LORazepam 2 MG/ML SDV VIAL IVPUSH ONE (23:50)
[2017-11-29] MEDS: HEPARIN INFUSION - 25,000 UNITS/500 ML INFUS.BAG IVPB SCH (02:01)
[2017-11-29 06:29] LABS: BASO % 0.3 % (0-2.0); EOS % 0.9 % (0-4.5); HEMATOCRIT 28.4 % (35.4-49); HEMOGLOBIN 9.6 GM/dL (11.7-16.9); LYMPH % 32.3 % (8-40); MCH 29.7 pg (25.7-33.7); MCHC 33.9 g/dl (32.0-35.9); MEAN CELL VOLUME 87.5 fl (80-96); MEAN PLT VOLUME 8.6 fl (7.5-11.1); MONO % 12.8 % (3.8-10.2); NEUT % 53.7 % (42.8-82.8); PLATELET COUNT 128 K/MM3 (134-434); RBC 3.24 M/mm3 (4.00-5.60); RDW 14.3 % (11.9-15.9); WHITE BLOOD COUNT 6.7 K/mm3 (4.0-10.0)
[2017-11-29 06:49] LABS: ALBUMIN 2.5 g/dl (3.4-5.0); ALK PHOS 102 U/L (45-117); ANION GAP 7 (8-16); BILIRUBIN,TOTAL 0.3 mg/dL (0.2-1.0); BLOOD UREA NITROGEN 7 mg/dL (7-18); CHLORIDE 116 mmol/L (98-107); CO2 26 mmol/L (21-32); CREATININE 0.7 mg/dL (0.7-1.3); GLUCOSE,RANDOM 110 mg/dL (74-106); SGOT/AST 97 U/L (15-37); SGPT/ALT 114 U/L (12-78); SODIUM 149 mmol/L (136-145); TOT PROT 5.7 g/dl (6.4-8.2)
[2017-11-29 07:01] LABS: INR 1.65 (0.83-1.09); PROTHROMBIN TIME (PATIENT) 18.6 SEC (9.7-13.0)
[2017-11-29] MEDS: NOREPINEPHRINE BITARTRATE 8,000 MCG in DEXTROSE 5%-WATER - 492 ML IV SCH (07:38)
[2017-11-29] MEDS: GABAPENTIN 300 MG CAPSULE (FP) PO SCH ×3 (09:00→21:28)
[2017-11-29] MEDS ORDERED: PT OWN MED DRAWER 7, Y5N ONE ×2 (09:01→21:11)
[2017-11-29] MEDS: DORZOLAMIDE 2% HCL OPHTHALMIC SOLUTION 10 ML BOTTLE OU SCH ×2 (09:05→21:29)
[2017-11-29] MEDS: MUPIROCIN 2% TOPICAL OINTMENT FOR DECOLONIZATION NS SCH (09:05)
[2017-11-29] MEDS: PHENYTOIN NA EXTENDED 100 MG CAPSULE (FP) PO SCH ×2 (09:05→21:21)
[2017-11-29] MEDS ORDERED: HEPARIN INFUSION - 25,000 UNITS/500 ML INFUS.BAG IVPB SCH (09:15)
--- NOTE | 2017-11-29 09:16 | PN ---
Progress Note, Physician Chief Complaint: PE, syncope History of Present Illness: confused, agitated this am. not answering questions meaningfully, asking for cigarette. og oliver on - Current Medication List Current Medications: Active Medications Bupropion HCl (Wellbutrin Xl -) 300 mg PO DAILY [facility] Chlorhexidine Gluconate (Hibiclens For Decolonization -) 1 applic TP HS [facility] Last Admin: 11/28/17 22:43 Dose: 1 applic Dorzolamide HCl (Trusopt 2%) 1 drop OU BID [facility] Last Admin: 11/28/17 22:38 Dose: 1 drop Folic Acid (Folic Acid -) 1 mg PO DAILY [facility] Gabapentin (Neurontin -) 300 mg PO Q8H [facility] Heparin Sodium (Porcine) (Heparin -) 1,000 unit IVPUSH PRN PRN PRN Reason: Heparin Heparin Sodium (Porcine) (Heparin -) 5,000 unit IVPUSH PRN PRN PRN Reason: Heparin Sodium Chloride (Normal Saline -) 1,000 mls @ 83 mls/hr IV ASDIR [facility] Last Admin: 11/28/17 22:43 Dose: 83 mls/hr Norepinephrine Bitartrate 8, (000 mcg/ Dextrose) 500 mls @ 18.75 mls/hr IV TITR [facility]; Protocol Last Admin: 11/29/17 07:38 Dose: Not Given Heparin Sodium/Dextrose (Heparin Infusion -) 25,000 units in 500 mls @ 22.861 mls/hr IVPB TITR [facility]; Protocol Latanoprost (Xalatan 0.005% Eye Drops -) 1 drop OD HS [facility] Last Admin: 11/28/17 22:38 Dose: 1 drop Levetiracetam (Keppra Oral Solution -) 750 mg PO BID [facility] Last Admin: 11/28/17 22:39 Dose: 750 mg Multivitamins (Total B With C -) 1 each PO DAILY [facility] Mupirocin (Bactroban Ointment (For Decolonization) -) 1 applic NS BID [facility] Stop: 12/03/17 09:59 Last Admin: 11/28/17 22:42 Dose: 1 applic Nicotine (Nicoderm Patch -) 21 mg TD DAILY [facility] Phenytoin Sodium (Dilantin -) 100 mg PO BID [facility] Last Admin: 11/28/17 22:41 Dose: 100 mg Sertraline HCl (Zoloft -) 50 mg PO DAILY [facility] Timolol Maleate (Timoptic 0.5%) 1 drop OU BID [facility] Last Admin: 11/28/17 22:37 Dose: 1 drop - Objective Vital Signs: Vital Signs Temperature 98.8 F 11/29/17 06:00 Pulse Rate 86 11/29/17 07:38 Respiratory Rate 18 11/29/17 06:00 Blood Pressure 106/68 11/29/17 07:38 O2 Sat by Pulse Oximetry (%) 100 11/28/17 22:00 Constitutional: Yes: Well Nourished, No Distress. No: Calm Cardiovascular: Yes: Regular Rate and Rhythm, S1, S2. No: Gallop, Murmur Respiratory: Yes: Regular, CTA Bilaterally (anteriorly). No: Accessory Muscle Use, Rales, Wheezes Extremities: No: Cold Edema: No Neurological: Yes: Alert. No: Oriented Psychiatric: Yes: Agitated (mildly) Labs: CBC, BMP 11/29/17 05:30 11/29/17 05:30 INR, PTT INR 1.65 (0.83-1.09) H 11/29/17 05:30 Assessment/Plan ECG 11/27 (20:31): atrial tach 139 bpm, inferior Q waves, mild nonsp ST abn (no old) tele: NSR with sinus tach. brief PAT (HR 131) acute PE: -s/p intra-PA lytics and mechanical thrombectomy by IR overnight -continue heparin for now -plan to initiate Eliquis vs Xarelto once stable with no need for invasive procedures -check echo -? unprovoked event--duration of AC per heme elevated troponin: -initial trop 1.6-->trending down -likely due to PE, with RV strain noted on unofficial echo in ER -defer ischemia eval. f/u echo atrial tachycardia: -ECG with atrial tach at HR 130s in ER -likely triggered by acute PE. -now in sinus, brief episode on tele. -off pressors, bp stable--start low dose metoprolol prophylaxis -observe tele
[2017-11-29] MEDS: levETIRAcetam 500 MG/5 ML ORAL SOLUTION (UNIT-DOSE CUPS) PO SCH ×2 (09:56→21:20)
[2017-11-29] MEDS: TIMOLOL 0.5% OPHTHALMIC SOL 5 ML BOTTLE OU SCH ×2 (09:57→21:29)
[2017-11-29] MEDS ORDERED: metoPROLOL SUCCINATE 25 MG TAB.SR.24H (FP) PO SCH (10:00)
[2017-11-29] MEDS ORDERED: NICOTINE 21 MG/24 HOURS TOPICAL PATCH TD SCH (10:00)
[2017-11-29] MEDS ORDERED: SERTRALINE HCL 50 MG TABLET (FP) PO SCH (10:00)
[2017-11-29] MEDS ORDERED: FOLIC ACID 1 MG TABLET (FP) PO SCH (10:00)
[2017-11-29] MEDS ORDERED: VITAMIN B COMPLEX W/C COMBO TABLET (FP) PO SCH (10:00)
--- NOTE | 2017-11-29 10:26 | PN ---
Progress Note (short form) - Note Progress Note: Pt seen/ examined in icu all f/u noted no distress wants cigarettes denies pain Vital Signs Temp 98.8 F 11/29/17 06:00 Pulse 86 11/29/17 07:38 Resp 18 11/29/17 06:00 BP 106/68 11/29/17 07:38 Pulse Ox 100 11/28/17 22:00 Intake & Output 11/28/17 11/28/17 11/29/17 11:59 23:59 11:59 Intake Total 802.0 2046.8 800.8 Output Total 500 Balance 802.0 1546.8 800.8 Weight 149 lb 151 lb Intake: IV 802.0 2046.8 800.8 HEPARIN INFUSION - 25,000 105.5 338.4 136.8 units In 500 ml @ 18 UNITS/KG/HR 22.861 mls/hr IVPB TITR [facility] Rx#: [id number] Levophed - 4,000 Mcg In 281.5 376.4 0 D5w - 496 ml @ 5 MCG/MIN 37.5 mls/hr IV TITR [facility] Rx#:[id number] Normal Saline - 1,000 ml 415 1332 664 @ 83 mls/hr IV [facility]IR [facility] Rx#:[id number] Output: Urine 500 Void 500 Other: Voiding Method External Catheter External Catheter # Unmeasured Voids Void 1 1 2 Bowel Movement No No No Height 5 ft 8 in Body Mass Index (BMI) 22.6 Weight Measurement Method Built in [facility] Active Medications Bupropion HCl (Wellbutrin Xl -) 300 mg PO DAILY [facility] Last Admin: 11/29/17 09:05 Dose: 300 mg Chlorhexidine Gluconate (Hibiclens For Decolonization -) 1 applic TP HS [facility] Last Admin: 11/28/17 22:43 Dose: 1 applic Dorzolamide HCl (Trusopt 2%) 1 drop OU BID [facility] Last Admin: 11/29/17 09:05 Dose: 1 drop Folic Acid (Folic Acid -) 1 mg PO DAILY [facility] Last Admin: 11/29/17 09:05 Dose: 1 mg Gabapentin (Neurontin -) 300 mg PO Q8H [facility] Last Admin: 11/29/17 09:00 Dose: 300 mg Heparin Sodium (Porcine) (Heparin -) 1,000 unit IVPUSH PRN PRN PRN Reason: Heparin Heparin Sodium (Porcine) (Heparin -) 5,000 unit IVPUSH PRN PRN PRN Reason: Heparin Last Admin: 11/29/17 09:35 Dose: 2,540 unit Sodium Chloride (Normal Saline -) 1,000 mls @ 83 mls/hr IV [facility] Last Admin: 11/28/17 22:43 Dose: 83 mls/hr Norepinephrine Bitartrate 8, (000 mcg/ Dextrose) 500 mls @ 18.75 mls/hr IV TITR [facility]; Protocol Last Admin: 11/29/17 07:38 Dose: Not Given Heparin Sodium/Dextrose (Heparin Infusion -) 25,000 units in 500 mls @ 22.861 mls/hr IVPB TITR [facility]; Protocol Last Admin: 11/29/17 09:30 Dose: 20 units/kg/hr, 25.401 mls/hr Latanoprost (Xalatan 0.005% Eye Drops -) 1 drop OD HS [facility] Last Admin: 11/28/17 22:38 Dose: 1 drop Levetiracetam (Keppra Oral Solution -) 750 mg PO BID [facility] Last Admin: 11/29/17 09:56 Dose: 750 mg Metoprolol Succinate (Toprol Xl -) 25 mg PO DAILY [facility] Multivitamins (Total B With C -) 1 each PO DAILY [facility] Last Admin: 11/29/17 09:05 Dose: 1 each Mupirocin (Bactroban Ointment (For Decolonization) -) 1 applic NS BID [facility] Stop: 12/03/17 09:59 Last Admin: 11/29/17 09:05 Dose: 1 applic Nicotine (Nicoderm Patch -) 21 mg TD DAILY [facility] Last Admin: 11/29/17 09:05 Dose: 21 mg Phenytoin Sodium (Dilantin -) 100 mg PO BID [facility] Last Admin: 11/29/17 09:05 Dose: 100 mg Sertraline HCl (Zoloft -) 50 mg PO DAILY [facility] Last Admin: 11/29/17 09:05 Dose: 50 mg Timolol Maleate (Timoptic 0.5%) 1 drop OU BID [facility] Last Admin: 11/29/17 09:57 Dose: 1 drop CBC, BMP 11/29/17 05:30 11/29/17 05:30 cxr - noted Physical Exam Constitutional: Yes: No Distress, Comfortable Eyes: Yes: Conjunctiva Clear Neck: Yes: Supple, Trachea Midline Cardiovascular: Yes: Regular Rate and Rhythm Respiratory: Yes: Diminished Gastrointestinal: Yes: Normal Bowel Sounds, Soft Edema: No Neurological: Yes: Alert Psychiatric: Yes: Alert Assessment/Plan Overall better Continue present care Monitor cbc-- dropped Echo A/C with caution Discussed with icu team will follow Problem List - Problems (1) DVT (deep venous thrombosis) Code(s): I82.409 - ACUTE EMBOLISM AND THOMBOS UNSP DEEP VN UNSP LOWER EXTREMITY (2) Elevated troponin I level Code(s): R74.8 - ABNORMAL LEVELS OF OTHER SERUM ENZYMES (3) Hypotension Code(s): I95.9 - HYPOTENSION, UNSPECIFIED (4) Pulmonary embolism Code(s): I26.99 - OTHER PULMONARY EMBOLISM WITHOUT ACUTE COR PULMONALE (5) Schizoaffective disorder Code(s): F25.9 - SCHIZOAFFECTIVE DISORDER, UNSPECIFIED (6) Seizure disorder Code(s): G40.909 - EPILEPSY, UNSP, NOT INTRACTABLE, WITHOUT STATUS EPILEPTICUS
--- NOTE | 2017-11-29 11:08 | PN ---
Teaching Attending Note Name of Resident: Vernell Salas ATTENDING PHYSICIAN STATEMENT I saw and evaluated the patient. I reviewed the resident's note and discussed the case with the resident. I agree with the resident's findings and plan as documented. SUBJECTIVE: Pt seen and examined in the ICU. Agitated, wants to smoke cigarettes. Denies shortness of breath or chest pain. OBJECTIVE: Vital Signs Period Temp Pulse Resp BP Sys/Chacon Pulse Ox Last 24 Hr 97.5 F-99 F 85-94 14-22 106-130/65-93 100-100 Intake & Output 11/26/17 11/27/17 11/28/17 11/29/17 23:59 23:59 23:59 23:59 Intake Total 2848.8 800.8 Output Total 500 Balance 2348.8 800.8 Weight 63.503 kg 67.585 kg 68.492 kg Gen: NAD at rest Heart: RRR Lung: decreased breath sounds at the bases Abd: soft, nontender Ext: no edema CBC, BMP 11/29/17 05:30 11/29/17 05:30 Active Medications Apixaban (Eliquis -) 5 mg PO BID [facility] Bupropion HCl (Wellbutrin Xl -) 300 mg PO DAILY [facility] Last Admin: 11/29/17 09:05 Dose: 300 mg Chlorhexidine Gluconate (Hibiclens For Decolonization -) 1 applic TP HS [facility] Last Admin: 11/28/17 22:43 Dose: 1 applic Dorzolamide HCl (Trusopt 2%) 1 drop OU BID [facility] Last Admin: 11/29/17 09:05 Dose: 1 drop Folic Acid (Folic Acid -) 1 mg PO DAILY [facility] Last Admin: 11/29/17 09:05 Dose: 1 mg Gabapentin (Neurontin -) 300 mg PO Q8H [facility] Last Admin: 11/29/17 09:00 Dose: 300 mg Sodium Chloride (Normal Saline -) 1,000 mls @ 83 mls/hr IV ASDIR [facility] Last Admin: 11/28/17 22:43 Dose: 83 mls/hr Norepinephrine Bitartrate 8, (000 mcg/ Dextrose) 500 mls @ 18.75 mls/hr IV TITR [facility]; Protocol Last Admin: 11/29/17 07:38 Dose: Not Given Latanoprost (Xalatan 0.005% Eye Drops -) 1 drop OD HS [facility] Last Admin: 11/28/17 22:38 Dose: 1 drop Levetiracetam (Keppra Oral Solution -) 750 mg PO BID [facility] Last Admin: 11/29/17 09:56 Dose: 750 mg Metoprolol Succinate (Toprol Xl -) 25 mg PO DAILY [facility] Last Admin: 11/29/17 10:26 Dose: 25 mg Multivitamins (Total B With C -) 1 each PO DAILY [facility] Last Admin: 11/29/17 09:05 Dose: 1 each Mupirocin (Bactroban Ointment (For Decolonization) -) 1 applic NS BID [facility] Stop: 12/03/17 09:59 Last Admin: 11/29/17 09:05 Dose: 1 applic Nicotine (Nicoderm Patch -) 21 mg TD DAILY [facility] Last Admin: 11/29/17 09:05 Dose: 21 mg Phenytoin Sodium (Dilantin -) 100 mg PO BID [facility] Last Admin: 11/29/17 09:05 Dose: 100 mg Sertraline HCl (Zoloft -) 50 mg PO DAILY [facility] Last Admin: 11/29/17 09:05 Dose: 50 mg Timolol Maleate (Timoptic 0.5%) 1 drop OU BID [facility] Last Admin: 11/29/17 09:57 Dose: 1 drop ASSESSMENT AND PLAN: Acute Pulmonary Embolism s/p catheter directed thrombectomy/thrombolysis +Troponins Cardiogenic vs Obstructive Shock Seizure Disorder Schizoaffective Disorder Dementia - continue anticoagulation - echocardiogram - f/u LE dopplers - O2 to keep SpO2>90% - PO as tolerated - can monitor on floor
[2017-11-29] MEDS ORDERED: ENOXAPARIN NA (PORCINE) 120 MG/0.8 ML DISP.SYRIN SQ SCH (11:30)
--- NOTE | 2017-11-29 12:55 | ECHO ---
Name: SMITH HANDY Exam:Adult Echocardiogram Study Date: 11/29/2017 09:59 AM Age: 72 yrs Reason For Study: S/P PE AND TREATMENT Height: 68 in Weight: 149 lb BSA: 1.8 m2 MMode/2D Measurements & Calculations IVSd: 1.7 cm Ao root diam: 3.0 cm LVIDd: 3.3 cm LA dimension: 3.2 cm LVIDs: 2.6 cm LVPWd: 0.95 cm EDV(Teich): 45.0 ml ESV(Teich): 24.9 ml Doppler Measurements & Calculations MV E max melvin: 48.5 cm/sec TR max melvin: 309.2 cm/sec MV A max melvin: 97.0 cm/sec TR max P.4 mmHg MV E/A: 0.50 MV dec time: 0.27 sec Med Peak E' Melvin: 7.8 cm/sec Med E/e': 6.2 Lat Peak E' Melvin: 11.6 cm/sec Lat E/e': 4.2 Procedure The study was technically adequate with some images being suboptimal in quality. Left Ventricle The left ventricle is normal in size. The left ventricle is hyperdynamic. Grade I diastolic dysfuncti on, (abnormal relaxation pattern). Flattened septum is consistent with RV pressure overload. Right Ventricle The right ventricle is severely dilated. The right ventricular systolic function is moderate to sever bruno reduced. Orozco's sign of RV apical hypercontractility in context of global RV hypokinesis as a re sult of submassive pulmonary embolism is seen. Atria The left atrial size is normal. The right atrium is moderate to severely dilated. A dilated inferior vena cava suggests increased right atrial pressure. Mitral Valve The mitral valve is grossly normal. There is mild mitral regurgitation. Tricuspid Valve The tricuspid valve is not well visualized, but is grossly normal. There is moderate to severe tricus pid regurgitation. There is mild pulmonary hypertension. Right ventricular systolic pressure is elevated at 42 mmhg. Aortic Valve The aortic valve opens well. There is mild aortic sclerosis.;. The aortic valve is trileaflet. Trace to mild aortic regurgitation. Pulmonic Valve The pulmonic valve is not well seen, but is grossly normal. Trace pulmonic valvular regurgitation. Great Vessels The aortic root is normal size. Pericardium/Pleura There is no pericardial effusion. Interpretation Summary There is no comparison study available. Findings consistent with chest CT findings of submassive pulm onary embolism for which patient underwent mechanical and chemical thrombolysis. Trace to mild aortic regur gitation. There is mild mitral regurgitation. The left ventricle is normal in size. The left ventricle is hyperdynamic. Trace pulmonic valvular regurgitation. Grade I diastolic dysfunction, (abnormal relaxation pattern). The right atrium is moderate to severely dilated. Flattened septum is consistent with RV pressure overload. Findings consistent with chest CT findings of submassive pulmonary embolism for which patient underwe nt mechanical and chemical thrombolysis. The right ventricular systolic function is moderate to severely reduced. Orozco's sign of RV apical hypercontractility in context of global RV hypokinesis as a result of s ubmassive pulmonary embolism is seen The right ventricle is severely dilated. Merrick Michaud MD 11/29/2017 12:55 PM
--- NOTE | 2017-11-29 14:14 | PN ---
Physical Exam: SUBJECTIVE: Patient seen and examined at bedside. patient asking for cigarettes this morning but denies any chest pain or shortness of breath. patient had LE duplex which showed R DVT. OBJECTIVE: Vital Signs Period Temp Pulse Resp BP Sys/Chacon Pulse Ox Last 24 Hr 97.8 F-99 F 86-95 14-22 106-130/65-93 97-100 GENERAL: The patient is awake, alert, not fully oriented. . LUNGS: diminished breath sounds at patient; however, clear to auscultation B/L HEART: Regular rate and rhythm, S1, S2 without murmur, rub or gallop. ABDOMEN: Soft, nontender, nondistended, normoactive bowel sounds, no guarding, no rebound, no hepatosplenomegaly, no masses. EXTREMITIES: 2+ pulses, warm, well-perfused, no edema. NEUROLOGICAL: Cranial nerves II through XII grossly intact. Normal speech, gait not observed. PSYCH: Normal mood, normal affect. SKIN: Warm, dry, normal turgor, no rashes or lesions noted Laboratory Results - last 24 hr 11/28/17 11/29/17 11/29/17 19:10 05:30 05:30 WBC 6.7 RBC 3.24 L Hgb 9.6 L Hct 28.4 L D MCV 87.5 MCH 29.7 MCHC 33.9 RDW 14.3 Plt Count 128 L D MPV 8.6 Absolute Neuts (auto) 3.6 Neutrophils % 53.7 D Lymphocytes % 32.3 D Monocytes % 12.8 H Eosinophils % 0.9 D Basophils % 0.3 Nucleated RBC % 0 PT with INR INR PTT (Actin FS) 57.1 H 45.4 H Sodium Potassium Chloride Carbon Dioxide Anion Gap BUN Creatinine Creat Clearance w eGFR Random Glucose Calcium Total Bilirubin AST ALT Alkaline Phosphatase Total Protein Albumin 11/29/17 11/29/17 05:30 05:30 WBC RBC Hgb Hct MCV MCH MCHC RDW Plt Count MPV Absolute Neuts (auto) Neutrophils % Lymphocytes % Monocytes % Eosinophils % Basophils % Nucleated RBC % PT with INR 18.60 H INR 1.65 H PTT (Actin FS) Sodium 149 H Potassium 4.0 Chloride 116 H Carbon Dioxide 26 D Anion Gap 7 L BUN 7 Creatinine 0.7 Creat Clearance w eGFR > 60 Random Glucose 110 H D Calcium 8.0 L Total Bilirubin 0.3 AST 97 H D ALT 114 H Alkaline Phosphatase 102 D Total Protein 5.7 L Albumin 2.5 L Active Medications Generic Name Dose Route Start Last Admin Trade Name Leilani PRN Reason Stop Dose Admin Bupropion HCl 300 mg 11/29/17 10:00 11/29/17 09:05 Wellbutrin Xl - PO 300 mg DAILY ESTEFANIA Administration Chlorhexidine Gluconate 1 applic 11/28/17 22:00 11/28/17 22:43 Hibiclens For Decolonization - TP 1 applic HS ESTEFANIA Administration Dorzolamide HCl 1 drop 11/28/17 22:00 11/29/17 09:05 Trusopt 2% OU 1 drop BID ESTEFANIA Administration Enoxaparin Sodium 70 mg 11/29/17 12:45 Lovenox - SQ BID ESTEFANIA Folic Acid 1 mg 11/29/17 10:00 11/29/17 09:05 Folic Acid - PO 1 mg DAILY ESTEFANIA Administration Gabapentin 300 mg 11/29/17 08:00 11/29/17 09:00 Neurontin - PO 300 mg Q8H ESTEFANIA Administration Sodium Chloride 1,000 mls @ 83 mls/hr 11/27/17 21:45 11/28/17 22:43 Normal Saline - IV 83 mls/hr ASDIR ESTEFANIA Administration Latanoprost 1 drop 11/28/17 22:00 11/28/17 22:38 Xalatan 0.005% Eye Drops - OD 1 drop HS ESTEFANIA Administration Levetiracetam 750 mg 11/28/17 22:00 11/29/17 09:56 Keppra Oral Solution - PO 750 mg BID ESTEFANIA Administration Metoprolol Succinate 25 mg 11/29/17 10:00 11/29/17 10:26 Toprol Xl - PO 25 mg DAILY ESTEFANIA Administration Multivitamins 1 each 11/29/17 10:00 11/29/17 09:05 Total B With C - PO 1 each DAILY ESTEFANIA Administration Mupirocin 1 applic 11/28/17 10:00 11/29/17 09:05 Bactroban Ointment (For Decolonization) - NS 12/03/17 09:59 1 applic BID ESTEFANIA Administration Nicotine 21 mg 11/29/17 10:00 11/29/17 09:05 Nicoderm Patch - TD 21 mg DAILY ESTEFANIA Administration Phenytoin Sodium 100 mg 11/28/17 22:00 11/29/17 09:05 Dilantin - PO 100 mg BID ESTEFANIA Administration Sertraline HCl 50 mg 11/29/17 10:00 11/29/17 09:05 Zoloft - PO 50 mg DAILY ESTEFANIA Administration Timolol Maleate 1 drop 11/28/17 22:00 11/29/17 09:57 Timoptic 0.5% OU 1 drop BID ESTEFANIA Administration ASSESSMENT/PLAN: 72 y/o male with PMH of DM, seizures (on keppra and dilantin), PVD, schizoaffective disorder, baseline dementia, presents to the ED from halfway after falling and having pain in the chest accompanied by dyspnea, found to have B/L pulmonary emboli on CTA in addition to a DVT in the right popliteal vein. patient underwent an emergent thrombectomy with successful disruption of the clots. patient currently off of heparin drip and started on Lovenox as NOAC was contraindicated with his Dilantin. B/L PE: patient found to have B/L PE in addition to a R popliteal vein DVT -levophed was stopped at 11 pm last night -no longer on heparin drip; started patient on lovenox -f/u echo -monitor o2 saturations -monitor hemodynamics -monitor CBC Seizures: -continue with Keppra and Dilantin Schozioaffective disorder -continue with medications F/E/N: no longer on standing fluids replete electrolytes when necessary regular diet dispo: transfer to med-surg Problem List - Problems (1) Elevated troponin I level Code(s): R74.8 - ABNORMAL LEVELS OF OTHER SERUM ENZYMES (2) Hypotension Code(s): I95.9 - HYPOTENSION, UNSPECIFIED (3) Pulmonary embolism Code(s): I26.99 - OTHER PULMONARY EMBOLISM WITHOUT ACUTE COR PULMONALE (4) Schizoaffective disorder Code(s): F25.9 - SCHIZOAFFECTIVE DISORDER, UNSPECIFIED (5) Seizure disorder Code(s): G40.909 - EPILEPSY, UNSP, NOT INTRACTABLE, WITHOUT STATUS EPILEPTICUS Visit type - Emergency Visit Emergency Visit: Yes ED Registration Date: 11/27/17 Care time: The patient presented to the Emergency Department on the above date and was hospitalized for further evaluation of their emergent condition. - New Patient This patient is new to me today: No - Critical Care Critical Care patient: Yes Total Critical Care Time (in minutes): 35 Critical Care Statement: The care of this patient involved high complexity decision making to prevent further life threatening deterioration of the patient 's condition and/or to evaluate & treat vital organ system(s) failure or risk of failure.
[2017-11-29 14:58] VITALS: BMI 22.9
[2017-11-29] MEDS: ENOXAPARIN NA (PORCINE) 80 MG/0.8 ML DISP.SYRIN SQ SCH ×2 (15:10→21:21)
[2017-11-29] MEDS: LATANOPROST 0.005% OPHTH SOLN 2.5ML BOTTLE OD SCH (21:29)
[2017-11-29] MEDS ORDERED: APIXABAN 5 MG TABLET PO SCH (22:00)
[2017-11-30] MEDS: GABAPENTIN 300 MG CAPSULE (FP) PO SCH ×3 (05:51→21:37)
[2017-11-30 07:53] LABS: HEMATOCRIT 30.6 % (35.4-49); HEMOGLOBIN 10.3 GM/dL (11.7-16.9); MCH 29.1 pg (25.7-33.7); MCHC 33.6 g/dl (32.0-35.9); MEAN CELL VOLUME 86.6 fl (80-96); MEAN PLT VOLUME 8.2 fl (7.5-11.1); PLATELET COUNT 155 K/MM3 (134-434); RBC 3.54 M/mm3 (4.00-5.60); RDW 14.4 % (11.9-15.9); WHITE BLOOD COUNT 5.8 K/mm3 (4.0-10.0)
[2017-11-30 08:34] LABS: ALBUMIN 2.7 g/dl (3.4-5.0); ANION GAP 8 (8-16); BLOOD UREA NITROGEN 5 mg/dL (7-18); CALCIUM 8.4 mg/dL (8.5-10.1); CHLORIDE 111 mmol/L (98-107); CO2 26 mmol/L (21-32); CREATININE 0.5 mg/dL (0.7-1.3); GLUCOSE,RANDOM 92 mg/dL (74-106); MAGNESIUM 2.1 mg/dL (1.8-2.4); PHOSPHOROUS 1.5 mg/dL (2.5-4.9); SGOT/AST 124 U/L (15-37); SGPT/ALT 177 U/L (12-78); SODIUM 145 mmol/L (136-145)
[2017-11-30 08:36] LABS: ALK PHOS 126 U/L (45-117); BILIRUBIN,TOTAL 0.6 mg/dL (0.2-1.0); TOT PROT 6.4 g/dl (6.4-8.2)
--- NOTE | 2017-11-30 08:50 | PN ---
Progress Note (short form) - Note Progress Note: Pt seen/ examined with WOOD GOUGER Mahsa Case discussed Documentation reviewed pt comfortable Agree with current management Vital Signs Temp 98.0 F 11/30/17 06:00 Pulse 85 11/30/17 06:00 Resp 18 11/30/17 06:00 BP 117/69 11/30/17 06:00 Pulse Ox 97 11/29/17 21:00 Intake & Output 11/29/17 11/29/17 11/30/17 11:59 23:59 11:59 Intake Total 800.8 315 Output Total 300 800 Balance 800.8 15 -800 Weight 151 lb 151 lb Intake: IV 800.8 315 HEPARIN INFUSION - 25,000 136.8 units In 500 ml @ 18 UNITS/KG/HR 22.861 mls/hr IVPB TITR ESTEFANIA Rx#: [id number] HEPARIN INFUSION - 25,000 66 units In 500 ml @ 18 UNITS/KG/HR 22.861 mls/hr IVPB TITR ESTEFANIA Rx#: [id number] Levophed - 4,000 Mcg In 0 D5w - 496 ml @ 5 MCG/MIN 37.5 mls/hr IV TITR ESTEFANIA Rx#:[id number] Normal Saline - 1,000 ml 664 249 @ 83 mls/hr IV ASDIR ESTEFANIA Rx#:[id number] Output: Urine 300 800 Void 300 800 Other: Voiding Method Incontinent Urinal # Unmeasured Voids Void 2 2 Bowel Movement No No Height 5 ft 8 in Body Mass Index (BMI) 22.9 Weight Measurement Method Built in [facility] Active Medications Bupropion HCl (Wellbutrin Xl -) 300 mg PO DAILY [facility] Dorzolamide HCl (Trusopt 2%) 1 drop OU BID [facility] Last Admin: 11/29/17 21:29 Dose: 1 drop Enoxaparin Sodium (Lovenox -) 70 mg SQ BID [facility] Last Admin: 11/29/17 21:21 Dose: 70 mg Folic Acid (Folic Acid -) 1 mg PO DAILY [facility] Gabapentin (Neurontin -) 300 mg PO TID [facility] Last Admin: 11/30/17 05:51 Dose: 300 mg Latanoprost (Xalatan 0.005% Eye Drops -) 1 drop OD HS [facility] Last Admin: 11/29/17 21:29 Dose: 1 drop Levetiracetam (Keppra Oral Solution -) 750 mg PO BID [facility] Last Admin: 11/29/17 21:20 Dose: 750 mg Metoprolol Succinate (Toprol Xl -) 25 mg PO DAILY [facility] Multivitamins (Total B With C -) 1 each PO DAILY [facility] Nicotine (Nicoderm Patch -) 21 mg TD DAILY [facility] Phenytoin Sodium (Dilantin -) 100 mg PO BID [facility] Last Admin: 11/29/17 21:21 Dose: 100 mg Sertraline HCl (Zoloft -) 50 mg PO DAILY [facility] Timolol Maleate (Timoptic 0.5%) 1 drop OU BID [facility] Last Admin: 11/29/17 21:29 Dose: 1 drop CBC, BMP 11/30/17 06:30 11/30/17 06:30 Physical Exam. Constitutional: Yes: No Distress, Comfortable Eyes: Yes: Conjunctiva Clear Neck: Yes: Supple, Trachea Midline Cardiovascular: Yes: Regular Rate and Rhythm Respiratory: Yes: Diminished Gastrointestinal: Yes: Normal Bowel Sounds, Soft Edema: No Neurological: Yes: Alert Psychiatric: Yes: Alert Assessment/Plan s/p syncope from [place] PE- s/p thrombectomy under IR as well as TPA Extensive RLE DVT Seizures LFT abnormality- most likely due to congestion/hypotention- Monitor schizoaffective d/o dementia -lovenox -CBC STABLE -continue current care - echo noted - will follow Problem List - Problems (1) DVT (deep venous thrombosis) Code(s): I82.409 - ACUTE EMBOLISM AND THOMBOS UNSP DEEP VN UNSP LOWER EXTREMITY (2) Elevated troponin I level Code(s): R74.8 - ABNORMAL LEVELS OF OTHER SERUM ENZYMES (3) Hypotension Code(s): I95.9 - HYPOTENSION, UNSPECIFIED (4) Pulmonary embolism Code(s): I26.99 - OTHER PULMONARY EMBOLISM WITHOUT ACUTE COR PULMONALE (5) Schizoaffective disorder Code(s): F25.9 - SCHIZOAFFECTIVE DISORDER, UNSPECIFIED (6) Seizure disorder Code(s): G40.909 - EPILEPSY, UNSP, NOT INTRACTABLE, WITHOUT STATUS EPILEPTICUS
[2017-11-30] MEDS ORDERED: PT OWN MED DRAWER 7, Y5N ONE ×2 (11:39→21:28)
[2017-11-30] MEDS: NICOTINE 21 MG/24 HOURS TOPICAL PATCH TD SCH (11:59)
[2017-11-30] MEDS: FOLIC ACID 1 MG TABLET (FP) PO SCH (11:59)
[2017-11-30] MEDS: ENOXAPARIN NA (PORCINE) 80 MG/0.8 ML DISP.SYRIN SQ SCH ×2 (11:59→21:37)
[2017-11-30] MEDS: SERTRALINE HCL 50 MG TABLET (FP) PO SCH (12:00)
[2017-11-30] MEDS: metoPROLOL SUCCINATE 25 MG TAB.SR.24H (FP) PO SCH (12:00)
[2017-11-30] MEDS: PHENYTOIN NA EXTENDED 100 MG CAPSULE (FP) PO SCH ×2 (12:02→21:36)
[2017-11-30] MEDS: levETIRAcetam 500 MG/5 ML ORAL SOLUTION (UNIT-DOSE CUPS) PO SCH ×2 (12:02→21:36)
[2017-11-30] MEDS: VITAMIN B COMPLEX W/C COMBO TABLET (FP) PO SCH (12:03)
[2017-11-30] MEDS: DORZOLAMIDE 2% HCL OPHTHALMIC SOLUTION 10 ML BOTTLE OU SCH ×2 (12:03→21:38)
[2017-11-30] MEDS: TIMOLOL 0.5% OPHTHALMIC SOL 5 ML BOTTLE OU SCH ×2 (12:04→21:38)
--- NOTE | 2017-11-30 12:04 | PN ---
Progress Note (short form) - Note Progress Note: Agitated. Wants to smoke cigarettes. Denies shortness of breath or chest pain. OBJECTIVE: Intake & Output 11/27/17 11/28/17 11/29/17 11/30/17 23:59 23:59 23:59 23:59 Intake Total 2848.8 1115.8 Output Total 180 153 8262 Balance 2348.8 815.8 -1300 Weight 140 lb 149 lb 151 lb Last Vital Signs Temp Pulse Resp BP Pulse Ox 98.0 F 85 18 117/69 97 11/30/17 06:00 11/30/17 06:00 11/30/17 06:00 11/30/17 06:00 11/29/17 21:00 Active Medications Bupropion HCl (Wellbutrin Xl -) 300 mg PO DAILY [facility] Dorzolamide HCl (Trusopt 2%) 1 drop OU BID [facility] Last Admin: 11/29/17 21:29 Dose: 1 drop Enoxaparin Sodium (Lovenox -) 70 mg SQ BID [facility] Last Admin: 11/29/17 21:21 Dose: 70 mg Folic Acid (Folic Acid -) 1 mg PO DAILY [facility] Gabapentin (Neurontin -) 300 mg PO TID [facility] Last Admin: 11/30/17 05:51 Dose: 300 mg Latanoprost (Xalatan 0.005% Eye Drops -) 1 drop OD HS [facility] Last Admin: 11/29/17 21:29 Dose: 1 drop Levetiracetam (Keppra Oral Solution -) 750 mg PO BID [facility] Last Admin: 11/29/17 21:20 Dose: 750 mg Metoprolol Succinate (Toprol Xl -) 25 mg PO DAILY [facility] Multivitamins (Total B With C -) 1 each PO DAILY [facility] Nicotine (Nicoderm Patch -) 21 mg TD DAILY [facility] Phenytoin Sodium (Dilantin -) 100 mg PO BID [facility] Last Admin: 11/29/17 21:21 Dose: 100 mg Sertraline HCl (Zoloft -) 50 mg PO DAILY [facility] Timolol Maleate (Timoptic 0.5%) 1 drop OU BID [facility] Last Admin: 11/29/17 21:29 Dose: 1 drop Gen: NAD at rest Heart: RRR Lung: decreased breath sounds at the bases Abd: soft, nontender Ext: no edema Laboratory Results - last 24 hr 11/30/17 11/30/17 11/30/17 06:30 06:30 06:30 WBC 5.8 RBC 3.54 L Hgb 10.3 L Hct 30.6 L MCV 86.6 MCH 29.1 MCHC 33.6 RDW 14.4 Plt Count 155 D MPV 8.2 PTT (Actin FS) 32.0 Sodium 145 Potassium 4.0 Chloride 111 H Carbon Dioxide 26 Anion Gap 8 BUN 5 L Creatinine 0.5 L Creat Clearance w eGFR > 60 Random Glucose 92 Calcium 8.4 L Phosphorus 1.5 L D Magnesium 2.1 Total Bilirubin 0.6 AST 124 H D ALT 177 H D Alkaline Phosphatase 126 H D Total Protein 6.4 Albumin 2.7 L ASSESSMENT AND PLAN: Acute Pulmonary Embolism s/p catheter directed thrombectomy/thrombolysis +Troponins Cardiogenic vs Obstructive Shock Seizure Disorder Schizoaffective Disorder Dementia - AC with Lovenox 70mg BID:either transition to coumadin or NOAC - O2 to keep SpO2>90% - PO as tolerated Dr Betancourt
--- NOTE | 2017-11-30 12:41 | PN ---
Progress Note (short form) - Note Progress Note: patient seen this am along with dr mendoza awake, confused no distress Vital Signs Period Temp Pulse Resp BP Sys/Chacon Pulse Ox Last 24 Hr 98 F-99.1 F 79-91 18-19 104-136/68-83 97 Active Medications Bupropion HCl (Wellbutrin Xl -) 300 mg PO DAILY [facility] Last Admin: 11/30/17 12:00 Dose: 300 mg Dorzolamide HCl (Trusopt 2%) 1 drop OU BID [facility] Last Admin: 11/30/17 12:03 Dose: 1 drop Enoxaparin Sodium (Lovenox -) 70 mg SQ BID [facility] Last Admin: 11/30/17 11:59 Dose: 70 mg Folic Acid (Folic Acid -) 1 mg PO DAILY [facility] Last Admin: 11/30/17 11:59 Dose: 1 mg Gabapentin (Neurontin -) 300 mg PO TID [facility] Last Admin: 11/30/17 05:51 Dose: 300 mg Latanoprost (Xalatan 0.005% Eye Drops -) 1 drop OD HS [facility] Last Admin: 11/29/17 21:29 Dose: 1 drop Levetiracetam (Keppra Oral Solution -) 750 mg PO BID [facility] Last Admin: 11/30/17 12:02 Dose: 750 mg Metoprolol Succinate (Toprol Xl -) 25 mg PO DAILY [facility] Last Admin: 11/30/17 12:00 Dose: 25 mg Multivitamins (Total B With C -) 1 each PO DAILY [facility] Last Admin: 11/30/17 12:03 Dose: 1 each Nicotine (Nicoderm Patch -) 21 mg TD DAILY [facility] Last Admin: 11/30/17 11:59 Dose: 21 mg Phenytoin Sodium (Dilantin -) 100 mg PO BID [facility] Last Admin: 11/30/17 12:02 Dose: 100 mg Sertraline HCl (Zoloft -) 50 mg PO DAILY [facility] Last Admin: 11/30/17 12:00 Dose: 50 mg Timolol Maleate (Timoptic 0.5%) 1 drop OU BID [facility] Last Admin: 11/30/17 12:04 Dose: 1 drop CBC,CMP WBC 5.8 K/mm3 (4.0-10.0) 11/30/17 06:30 RBC 3.54 M/mm3 (4.00-5.60) L 11/30/17 06:30 Hgb 10.3 GM/dL (11.7-16.9) L 11/30/17 06:30 Hct 30.6 % (35.4-49) L 11/30/17 06:30 MCV 86.6 fl (80-96) 11/30/17 06:30 MCH 29.1 pg (25.7-33.7) 11/30/17 06:30 MCHC 33.6 g/dl (32.0-35.9) 11/30/17 06:30 RDW 14.4 % (11.9-15.9) 11/30/17 06:30 Plt Count 155 K/MM3 (134-434) D 11/30/17 06:30 MPV 8.2 fl (7.5-11.1) 11/30/17 06:30 Absolute Neuts (auto) 3.6 K/mm3 (1.5-8.0) 11/29/17 05:30 Neutrophils % 53.7 % (42.8-82.8) D 11/29/17 05:30 Lymphocytes % 32.3 % (8-40) D 11/29/17 05:30 Monocytes % 12.8 % (3.8-10.2) H 11/29/17 05:30 Eosinophils % 0.9 % (0-4.5) D 11/29/17 05:30 Basophils % 0.3 % (0-2.0) 11/29/17 05:30 Nucleated RBC % 0 % (0-0) 11/29/17 05:30 Sodium 145 mmol/L (136-145) 11/30/17 06:30 Potassium 4.0 mmol/L (3.5-5.1) 11/30/17 06:30 Chloride 111 mmol/L (98-107) H 11/30/17 06:30 Carbon Dioxide 26 mmol/L (21-32) 11/30/17 06:30 Anion Gap 8 (8-16) 11/30/17 06:30 BUN 5 mg/dL (7-18) L 11/30/17 06:30 Creatinine 0.5 mg/dL (0.7-1.3) L 11/30/17 06:30 Creat Clearance w eGFR > 60 (>60) 11/30/17 06:30 Random Glucose 92 mg/dL (74-106) 11/30/17 06:30 Calcium 8.4 mg/dL (8.5-10.1) L 11/30/17 06:30 Phosphorus 1.5 mg/dL (2.5-4.9) L D 11/30/17 06:30 Magnesium 2.1 mg/dL (1.8-2.4) 11/30/17 06:30 Total Bilirubin 0.6 mg/dL (0.2-1.0) 11/30/17 06:30 AST 124 U/L (15-37) H D 11/30/17 06:30 ALT 177 U/L (12-78) H D 11/30/17 06:30 Alkaline Phosphatase 126 U/L (45-117) H D 11/30/17 06:30 Creatine Kinase 117 IU/L (39-308) 11/27/17 19:34 Troponin I 1.36 ng/ml (0.00-0.05) H* 11/28/17 05:30 Total Protein 6.4 g/dl (6.4-8.2) 11/30/17 06:30 Albumin 2.7 g/dl (3.4-5.0) L 11/30/17 06:30 Physical Exam Constitutional: Yes: No Distress, Comfortable Eyes: Yes: Conjunctiva Clear Neck: Yes: Supple, Trachea Midline Cardiovascular: Yes: Regular Rate and Rhythm Respiratory: Yes: Diminished Gastrointestinal: Yes: Normal Bowel Sounds, Soft Edema: No Neurological: Yes: Alert Psychiatric: Yes: Alert Assessment/Plan s/p syncope from [place] PE- s/p thrombectomy under IR as well as TPA Extensive RLE DVT Seizures LFT abnormality- most likely due to congestion/hypotention- Monitor schizoaffective d/o dementia -lovenox -CBC STABLE -continue current care - echo noted Problem List - Problems (1) DVT (deep venous thrombosis) Code(s): I82.409 - ACUTE EMBOLISM AND THOMBOS UNSP DEEP VN UNSP LOWER EXTREMITY (2) Elevated troponin I level Code(s): R74.8 - ABNORMAL LEVELS OF OTHER SERUM ENZYMES (3) Hypotension Code(s): I95.9 - HYPOTENSION, UNSPECIFIED (4) Pulmonary embolism Code(s): I26.99 - OTHER PULMONARY EMBOLISM WITHOUT ACUTE COR PULMONALE (5) Schizoaffective disorder Code(s): F25.9 - SCHIZOAFFECTIVE DISORDER, UNSPECIFIED (6) Seizure disorder Code(s): G40.909 - EPILEPSY, UNSP, NOT INTRACTABLE, WITHOUT STATUS EPILEPTICUS Problem List - Problems (1) Liver function abnormality Code(s): K76.89 - OTHER SPECIFIED DISEASES OF LIVER
--- NOTE | 2017-11-30 13:28 | PN ---
Progress Note (short form) - Note Progress Note: cc: PE, syncope s: no cp, palps, dizzy, lightheadedness Current Medications Bupropion HCl (Wellbutrin Xl -) 300 mg PO DAILY [facility] Last Admin: 11/30/17 12:00 Dose: 300 mg Dorzolamide HCl (Trusopt 2%) 1 drop OU BID [facility] Last Admin: 11/30/17 12:03 Dose: 1 drop Enoxaparin Sodium (Lovenox -) 70 mg SQ BID [facility] Last Admin: 11/30/17 11:59 Dose: 70 mg Folic Acid (Folic Acid -) 1 mg PO DAILY [facility] Last Admin: 11/30/17 11:59 Dose: 1 mg Gabapentin (Neurontin -) 300 mg PO TID [facility] Last Admin: 11/30/17 05:51 Dose: 300 mg Latanoprost (Xalatan 0.005% Eye Drops -) 1 drop OD HS [facility] Last Admin: 11/29/17 21:29 Dose: 1 drop Levetiracetam (Keppra Oral Solution -) 750 mg PO BID [facility] Last Admin: 11/30/17 12:02 Dose: 750 mg Metoprolol Succinate (Toprol Xl -) 25 mg PO DAILY [facility] Last Admin: 11/30/17 12:00 Dose: 25 mg Multivitamins (Total B With C -) 1 each PO DAILY [facility] Last Admin: 11/30/17 12:03 Dose: 1 each Nicotine (Nicoderm Patch -) 21 mg TD DAILY [facility] Last Admin: 11/30/17 11:59 Dose: 21 mg Phenytoin Sodium (Dilantin -) 100 mg PO BID [facility] Last Admin: 11/30/17 12:02 Dose: 100 mg Sertraline HCl (Zoloft -) 50 mg PO DAILY [facility] Last Admin: 11/30/17 12:00 Dose: 50 mg Timolol Maleate (Timoptic 0.5%) 1 drop OU BID [facility] Last Admin: 11/30/17 12:04 Dose: 1 drop - Objective Vital Signs Period Temp Pulse Resp BP Sys/Chacon Pulse Ox Last 24 Hr 98 F-99.1 F 79-91 18-19 104-136/68-83 97 Constitutional: Yes: Well Nourished, No Distress. No: Calm Cardiovascular: Yes: Regular Rate and Rhythm, S1, S2. No: Gallop, Murmur Respiratory: Yes: Regular, CTA Bilaterally (anteriorly). No: Accessory Muscle Use, Rales, Wheezes Extremities: No: Cold Edema: No Neurological: Yes: Alert. No: Oriented Psychiatric: Yes: Agitated (mildly) Assessment/Plan ECG 11/27 (20:31): atrial tach 139 bpm, inferior Q waves, mild nonsp ST abn (no old) tele: NSR with sinus tach. brief PAT (HR 131) echo 11/2017 lv nl size, function, RV severely dilated, flattened IV septum c/w RV pressure overload, Orozco's sign, RA mod to sev dilated, mild AI, mild MR , RVSP 43 mmHg acute PE: -s/p intra-PA lytics and mechanical thrombectomy by IR -continue heparin for now -plan to initiate Eliquis vs Xarelto once stable with no need for invasive procedures - echo shows RV enlargement and RV dysfunction c/w PE, s/p lytics -? unprovoked event--duration of AC per heme elevated troponin: -initial trop 1.6-->trending down, likely was elevated in setting of RV strain from PE noted on echo atrial tachycardia: -ECG with atrial tach at HR 130s in ER -likely triggered by acute PE. -now in sinus, brief episode on tele. -off pressors, bp stable, on metoprolol
[2017-11-30] MEDS: LATANOPROST 0.005% OPHTH SOLN 2.5ML BOTTLE OD SCH (21:39)
[2017-12-01] MEDS: GABAPENTIN 300 MG CAPSULE (FP) PO SCH ×3 (06:21→22:18)
[2017-12-01] MEDS ORDERED: PT OWN MED DRAWER 7, Y5N ONE ×3 (06:59→11:34)
[2017-12-01 07:58] LABS: HEMATOCRIT 32.5 % (35.4-49); HEMOGLOBIN 10.7 GM/dL (11.7-16.9); MCH 28.6 pg (25.7-33.7); MCHC 33.1 g/dl (32.0-35.9); MEAN CELL VOLUME 86.5 fl (80-96); MEAN PLT VOLUME 8.6 fl (7.5-11.1); PLATELET COUNT 181 K/MM3 (134-434); RBC 3.75 M/mm3 (4.00-5.60); RDW 13.9 % (11.9-15.9)
[2017-12-01 08:44] LABS: ALBUMIN 2.8 g/dl (3.4-5.0); ANION GAP 10 MMOL/L (8-16); BILIRUBIN,TOTAL 0.5 mg/dL (0.2-1.0); BLOOD UREA NITROGEN 5 mg/dL (7-18); CALCIUM 8.4 mg/dL (8.5-10.1); CHLORIDE 109 mmol/L (98-107); CO2 26 mmol/L (21-32); CREATININE 0.6 mg/dL (0.7-1.3); GLUCOSE,RANDOM 95 mg/dL (74-106); POTASSIUM 3.6 mmol/L (3.5-5.1); SGOT/AST 83 U/L (15-37); SGPT/ALT 167 U/L (12-78); SODIUM 145 mmol/L (136-145)
[2017-12-01 08:45] LABS: ALK PHOS 138 U/L (45-117); TOT PROT 6.3 g/dl (6.4-8.2)
[2017-12-01] MEDS: ENOXAPARIN NA (PORCINE) 80 MG/0.8 ML DISP.SYRIN SQ SCH ×2 (10:40→22:18)
[2017-12-01] MEDS: NICOTINE 21 MG/24 HOURS TOPICAL PATCH TD SCH (11:10)
[2017-12-01] MEDS: SERTRALINE HCL 50 MG TABLET (FP) PO SCH (11:10)
[2017-12-01] MEDS: PHENYTOIN NA EXTENDED 100 MG CAPSULE (FP) PO SCH ×2 (11:11→22:17)
[2017-12-01] MEDS: metoPROLOL SUCCINATE 25 MG TAB.SR.24H (FP) PO SCH (11:11)
[2017-12-01] MEDS: levETIRAcetam 500 MG/5 ML ORAL SOLUTION (UNIT-DOSE CUPS) PO SCH ×2 (11:11→22:17)
[2017-12-01] MEDS: FOLIC ACID 1 MG TABLET (FP) PO SCH (11:11)
[2017-12-01] MEDS: TIMOLOL 0.5% OPHTHALMIC SOL 5 ML BOTTLE OU SCH ×2 (11:12→22:18)
[2017-12-01] MEDS: DORZOLAMIDE 2% HCL OPHTHALMIC SOLUTION 10 ML BOTTLE OU SCH ×2 (11:12→22:19)
--- NOTE | 2017-12-01 11:32 | PN ---
Progress Note (short form) - Note Progress Note: cc: PE, syncope s: no cp, palps, dizzy, lightheadedness Current Medications Bupropion HCl (Wellbutrin Xl -) 300 mg PO DAILY [facility] Last Admin: 12/01/17 10:40 Dose: 300 mg Dorzolamide HCl (Trusopt 2%) 1 drop OU BID [facility] Last Admin: 12/01/17 11:12 Dose: 1 drop Enoxaparin Sodium (Lovenox -) 70 mg SQ BID [facility] Last Admin: 12/01/17 10:40 Dose: 70 mg Folic Acid (Folic Acid -) 1 mg PO DAILY [facility] Last Admin: 12/01/17 11:11 Dose: 1 mg Gabapentin (Neurontin -) 300 mg PO TID [facility] Last Admin: 12/01/17 06:21 Dose: 300 mg Latanoprost (Xalatan 0.005% Eye Drops -) 1 drop OD HS [facility] Last Admin: 11/30/17 21:39 Dose: 1 drop Levetiracetam (Keppra Oral Solution -) 750 mg PO BID [facility] Last Admin: 12/01/17 11:11 Dose: 750 mg Metoprolol Succinate (Toprol Xl -) 25 mg PO DAILY [facility] Last Admin: 12/01/17 11:11 Dose: 25 mg Multivitamins (Total B With C -) 1 each PO DAILY [facility] Last Admin: 11/30/17 12:03 Dose: 1 each Nicotine (Nicoderm Patch -) 21 mg TD DAILY [facility] Last Admin: 12/01/17 11:10 Dose: 21 mg Phenytoin Sodium (Dilantin -) 100 mg PO BID [facility] Last Admin: 12/01/17 11:11 Dose: 100 mg Sertraline HCl (Zoloft -) 50 mg PO DAILY [facility] Last Admin: 12/01/17 11:10 Dose: 50 mg Timolol Maleate (Timoptic 0.5%) 1 drop OU BID [facility] Last Admin: 12/01/17 11:12 Dose: 1 drop - Objective Vital Signs Period Temp Pulse Resp BP Sys/Chacon Pulse Ox Last 24 Hr 98.5 F-99.1 F 78-84 17-18 100-126/56-75 96 Constitutional: Yes: Well Nourished, No Distress. No: Calm Cardiovascular: Yes: Regular Rate and Rhythm, S1, S2. No: Gallop, Murmur Respiratory: Yes: Regular, CTA Bilaterally (anteriorly). No: Accessory Muscle Use, Rales, Wheezes Extremities: No: Cold Edema: No Neurological: Yes: Alert. No: Oriented Psychiatric: Yes: Agitated (mildly) Assessment/Plan ECG 11/27 (20:31): atrial tach 139 bpm, inferior Q waves, mild nonsp ST abn (no old) tele: NSR with sinus tach. brief PAT (HR 131) echo 11/2017 lv nl size, function, RV severely dilated, flattened IV septum c/w RV pressure overload, Orozco's sign, RA mod to sev dilated, mild AI, mild MR , RVSP 43 mmHg acute PE: -s/p intra-PA lytics and mechanical thrombectomy by IR - on lovenox for AC - would consider starting Eliquis vs Xarelto once stable with no need for invasive procedures - echo shows RV enlargement and RV dysfunction c/w PE, s/p lytics -possibly unprovoked event--duration of AC per heme elevated troponin: -initial trop 1.6-->trending down, likely was elevated in setting of RV strain from PE noted on echo atrial tachycardia: -ECG with atrial tach at HR 130s in ER -likely triggered by acute PE. -now in sinus, brief episode on tele. -off pressors, bp stable, on metoprolol
[2017-12-01] MEDS: VITAMIN B COMPLEX W/C COMBO TABLET (FP) PO SCH (12:22)
--- NOTE | 2017-12-01 12:42 | PN ---
Progress Note (short form) - Note Progress Note: patient seen this am awake, calm, confused no distress Vital Signs Period Temp Pulse Resp BP Sys/Chacon Pulse Ox Last 24 Hr 98.5 F-99.1 F 78-84 17-19 100-126/56-75 96 Active Medications Bupropion HCl (Wellbutrin Xl -) 300 mg PO DAILY [facility] Last Admin: 12/01/17 10:40 Dose: 300 mg Dorzolamide HCl (Trusopt 2%) 1 drop OU BID [facility] Last Admin: 12/01/17 11:12 Dose: 1 drop Enoxaparin Sodium (Lovenox -) 70 mg SQ BID [facility] Last Admin: 12/01/17 10:40 Dose: 70 mg Folic Acid (Folic Acid -) 1 mg PO DAILY [facility] Last Admin: 12/01/17 11:11 Dose: 1 mg Gabapentin (Neurontin -) 300 mg PO TID [facility] Last Admin: 12/01/17 06:21 Dose: 300 mg Latanoprost (Xalatan 0.005% Eye Drops -) 1 drop OD HS [facility] Last Admin: 11/30/17 21:39 Dose: 1 drop Levetiracetam (Keppra Oral Solution -) 750 mg PO BID [facility] Last Admin: 12/01/17 11:11 Dose: 750 mg Metoprolol Succinate (Toprol Xl -) 25 mg PO DAILY [facility] Last Admin: 12/01/17 11:11 Dose: 25 mg Multivitamins (Total B With C -) 1 each PO DAILY [facility] Last Admin: 12/01/17 12:22 Dose: 1 each Nicotine (Nicoderm Patch -) 21 mg TD DAILY [facility] Last Admin: 12/01/17 11:10 Dose: 21 mg Phenytoin Sodium (Dilantin -) 100 mg PO BID [facility] Last Admin: 12/01/17 11:11 Dose: 100 mg Sertraline HCl (Zoloft -) 50 mg PO DAILY [facility] Last Admin: 12/01/17 11:10 Dose: 50 mg Timolol Maleate (Timoptic 0.5%) 1 drop OU BID [facility] Last Admin: 12/01/17 11:12 Dose: 1 drop CBC,CMP WBC 5.0 K/mm3 (4.0-10.0) 12/01/17 06:30 RBC 3.75 M/mm3 (4.00-5.60) L 12/01/17 06:30 Hgb 10.7 GM/dL (11.7-16.9) L 12/01/17 06:30 Hct 32.5 % (35.4-49) L 12/01/17 06:30 MCV 86.5 fl (80-96) 12/01/17 06:30 MCH 28.6 pg (25.7-33.7) 12/01/17 06:30 MCHC 33.1 g/dl (32.0-35.9) 12/01/17 06:30 RDW 13.9 % (11.9-15.9) 12/01/17 06:30 Plt Count 181 K/MM3 (134-434) 12/01/17 06:30 MPV 8.6 fl (7.5-11.1) 12/01/17 06:30 Absolute Neuts (auto) 3.6 K/mm3 (1.5-8.0) 11/29/17 05:30 Neutrophils % 53.7 % (42.8-82.8) D 11/29/17 05:30 Lymphocytes % 32.3 % (8-40) D 11/29/17 05:30 Monocytes % 12.8 % (3.8-10.2) H 11/29/17 05:30 Eosinophils % 0.9 % (0-4.5) D 11/29/17 05:30 Basophils % 0.3 % (0-2.0) 11/29/17 05:30 Nucleated RBC % 0 % (0-0) 11/29/17 05:30 Sodium 145 mmol/L (136-145) 12/01/17 06:30 Potassium 3.6 mmol/L (3.5-5.1) 12/01/17 06:30 Chloride 109 mmol/L (98-107) H 12/01/17 06:30 Carbon Dioxide 26 mmol/L (21-32) 12/01/17 06:30 Anion Gap 10 MMOL/L (8-16) 12/01/17 06:30 BUN 5 mg/dL (7-18) L 12/01/17 06:30 Creatinine 0.6 mg/dL (0.7-1.3) L 12/01/17 06:30 Creat Clearance w eGFR > 60 (>60) 12/01/17 06:30 Random Glucose 95 mg/dL (74-106) 12/01/17 06:30 Calcium 8.4 mg/dL (8.5-10.1) L 12/01/17 06:30 Phosphorus 1.5 mg/dL (2.5-4.9) L D 11/30/17 06:30 Magnesium 2.1 mg/dL (1.8-2.4) 11/30/17 06:30 Total Bilirubin 0.5 mg/dL (0.2-1.0) 12/01/17 06:30 AST 83 U/L (15-37) H D 12/01/17 06:30 ALT 167 U/L (12-78) H 12/01/17 06:30 Alkaline Phosphatase 138 U/L (45-117) H D 12/01/17 06:30 Creatine Kinase 117 IU/L (39-308) 11/27/17 19:34 Troponin I 1.36 ng/ml (0.00-0.05) H* 11/28/17 05:30 Total Protein 6.3 g/dl (6.4-8.2) L 12/01/17 06:30 Albumin 2.8 g/dl (3.4-5.0) L 12/01/17 06:30 Physical Exam Constitutional: Yes: No Distress, Comfortable Eyes: Yes: Conjunctiva Clear Neck: Yes: Supple, Trachea Midline Cardiovascular: Yes: Regular Rate and Rhythm Respiratory: Yes: Diminished Gastrointestinal: Yes: Normal Bowel Sounds, Soft Edema: No Neurological: Yes: Alert, confused Psychiatric: Yes: Alert Assessment/Plan s/p syncope from [place] PE- s/p thrombectomy under IR as well as TPA Extensive RLE DVT Seizures LFT abnormality- most likely due to congestion/hypotention in Radiology, LFT trending down schizoaffective d/o dementia -lovenox -CBC STABLE -continue current care LFT repeat tomorrow discussed with dr mendoza Problem List - Problems (1) DVT (deep venous thrombosis) Code(s): I82.409 - ACUTE EMBOLISM AND THOMBOS UNSP DEEP VN UNSP LOWER EXTREMITY (2) Elevated troponin I level Code(s): R74.8 - ABNORMAL LEVELS OF OTHER SERUM ENZYMES (3) Hypotension Code(s): I95.9 - HYPOTENSION, UNSPECIFIED (4) Pulmonary embolism Code(s): I26.99 - OTHER PULMONARY EMBOLISM WITHOUT ACUTE COR PULMONALE (5) Schizoaffective disorder Code(s): F25.9 - SCHIZOAFFECTIVE DISORDER, UNSPECIFIED (6) Seizure disorder Code(s): G40.909 - EPILEPSY, UNSP, NOT INTRACTABLE, WITHOUT STATUS EPILEPTICUS Problem List - Problems (1) Liver function abnormality Code(s): K76.89 - OTHER SPECIFIED DISEASES OF LIVER Problem List - Problems (1) Liver function abnormality Code(s): K76.89 - OTHER SPECIFIED DISEASES OF LIVER
--- NOTE | 2017-12-01 14:36 | PN ---
Progress Note, Physician History of Present Illness: PULMONARY ALERT,NAD,-SOB,-CP - Current Medication List Current Medications: Active Medications Bupropion HCl (Wellbutrin Xl -) 300 mg PO DAILY [facility] Last Admin: 12/01/17 10:40 Dose: 300 mg Dorzolamide HCl (Trusopt 2%) 1 drop OU BID [facility] Last Admin: 12/01/17 11:12 Dose: 1 drop Enoxaparin Sodium (Lovenox -) 70 mg SQ BID [facility] Last Admin: 12/01/17 10:40 Dose: 70 mg Folic Acid (Folic Acid -) 1 mg PO DAILY [facility] Last Admin: 12/01/17 11:11 Dose: 1 mg Gabapentin (Neurontin -) 300 mg PO TID [facility] Last Admin: 12/01/17 06:21 Dose: 300 mg Latanoprost (Xalatan 0.005% Eye Drops -) 1 drop OD HS [facility] Last Admin: 11/30/17 21:39 Dose: 1 drop Levetiracetam (Keppra Oral Solution -) 750 mg PO BID [facility] Last Admin: 12/01/17 11:11 Dose: 750 mg Metoprolol Succinate (Toprol Xl -) 25 mg PO DAILY [facility] Last Admin: 12/01/17 11:11 Dose: 25 mg Multivitamins (Total B With C -) 1 each PO DAILY [facility] Last Admin: 12/01/17 12:22 Dose: 1 each Nicotine (Nicoderm Patch -) 21 mg TD DAILY [facility] Last Admin: 12/01/17 11:10 Dose: 21 mg Phenytoin Sodium (Dilantin -) 100 mg PO BID [facility] Last Admin: 12/01/17 11:11 Dose: 100 mg Sertraline HCl (Zoloft -) 50 mg PO DAILY [facility] Last Admin: 12/01/17 11:10 Dose: 50 mg Timolol Maleate (Timoptic 0.5%) 1 drop OU BID [facility] Last Admin: 12/01/17 11:12 Dose: 1 drop - Objective Vital Signs: Vital Signs Temperature 98.5 F 12/01/17 10:00 Pulse Rate 80 12/01/17 10:00 Respiratory Rate 19 12/01/17 10:00 Blood Pressure 112/69 12/01/17 10:00 O2 Sat by Pulse Oximetry (%) 98 12/01/17 09:00 Constitutional: Yes: Calm, Thin Eyes: Yes: WNL HENT: Yes: WNL Neck: Yes: WNL Cardiovascular: Yes: Regular Rate and Rhythm, S1, S2 Respiratory: Yes: CTA Bilaterally Gastrointestinal: Yes: Normal Bowel Sounds, Soft Extremities: Yes: WNL Edema: No Labs: CBC, BMP 12/01/17 06:30 12/01/17 06:30 Problem List - Problems (1) DVT (deep venous thrombosis) Code(s): I82.409 - ACUTE EMBOLISM AND THOMBOS UNSP DEEP VN UNSP LOWER EXTREMITY (2) Pulmonary embolism Code(s): I26.99 - OTHER PULMONARY EMBOLISM WITHOUT ACUTE COR PULMONALE (3) Seizure disorder Code(s): G40.909 - EPILEPSY, UNSP, NOT INTRACTABLE, WITHOUT STATUS EPILEPTICUS (4) Dementia Code(s): F03.90 - UNSPECIFIED DEMENTIA WITHOUT BEHAVIORAL DISTURBANCE (5) Elevated troponin I level Code(s): R74.8 - ABNORMAL LEVELS OF OTHER SERUM ENZYMES (6) Hypotension Code(s): I95.9 - HYPOTENSION, UNSPECIFIED (7) Schizoaffective disorder Code(s): F25.9 - SCHIZOAFFECTIVE DISORDER, UNSPECIFIED Assessment/Plan ASSESSMENT AND PLAN: Acute Pulmonary Embolism s/p catheter directed thrombectomy/thrombolysis +Troponins Cardiogenic vs Obstructive Shock Seizure Disorder Schizoaffective Disorder Dementia - AC with Lovenox 70mg BID:either transition to coumadin or NOAC - O2 to keep SpO2>90% - PO as tolerated DR HOLDEN
[2017-12-01] MEDS: LATANOPROST 0.005% OPHTH SOLN 2.5ML BOTTLE OD SCH (22:18)
[2017-12-02] MEDS: GABAPENTIN 300 MG CAPSULE (FP) PO SCH ×4 (06:35→22:49)
[2017-12-02] MEDS ORDERED: PT OWN MED DRAWER 7, Y5N ONE ×3 (06:50→22:15)
[2017-12-02 07:22] LABS: HEMATOCRIT 33.6 % (35.4-49); HEMOGLOBIN 11.2 GM/dL (11.7-16.9); MCHC 33.4 g/dl (32.0-35.9); MEAN CELL VOLUME 86.9 fl (80-96); MEAN PLT VOLUME 8.4 fl (7.5-11.1); PLATELET COUNT 195 K/MM3 (134-434); RBC 3.87 M/mm3 (4.00-5.60); WHITE BLOOD COUNT 5.4 K/mm3 (4.0-10.0)
[2017-12-02 07:56] LABS: ALBUMIN 2.6 g/dl (3.4-5.0); ALK PHOS 141 U/L (45-117); ANION GAP 9 MMOL/L (8-16); BILIRUBIN,TOTAL 0.4 mg/dL (0.2-1.0); BLOOD UREA NITROGEN 4 mg/dL (7-18); CALCIUM 8.3 mg/dL (8.5-10.1); CHLORIDE 111 mmol/L (98-107); CO2 26 mmol/L (21-32); CREATININE 0.7 mg/dL (0.7-1.3); GLUCOSE,RANDOM 89 mg/dL (74-106); POTASSIUM 3.8 mmol/L (3.5-5.1); SGOT/AST 48 U/L (15-37); SGPT/ALT 125 U/L (12-78); SODIUM 146 mmol/L (136-145); TOT PROT 6.3 g/dl (6.4-8.2)
[2017-12-02] MEDS: FOLIC ACID 1 MG TABLET (FP) PO SCH (10:31)
[2017-12-02] MEDS: SERTRALINE HCL 50 MG TABLET (FP) PO SCH (10:31)
[2017-12-02] MEDS: metoPROLOL SUCCINATE 25 MG TAB.SR.24H (FP) PO SCH (10:31)
[2017-12-02] MEDS: PHENYTOIN NA EXTENDED 100 MG CAPSULE (FP) PO SCH ×2 (10:32→22:50)
[2017-12-02] MEDS: VITAMIN B COMPLEX W/C COMBO TABLET (FP) PO SCH (10:32)
[2017-12-02] MEDS: levETIRAcetam 500 MG/5 ML ORAL SOLUTION (UNIT-DOSE CUPS) PO SCH ×2 (10:33→22:50)
[2017-12-02] MEDS: ENOXAPARIN NA (PORCINE) 80 MG/0.8 ML DISP.SYRIN SQ SCH ×2 (10:33→22:57)
[2017-12-02] MEDS: NICOTINE 21 MG/24 HOURS TOPICAL PATCH TD SCH (10:33)
--- NOTE | 2017-12-02 11:27 | PN ---
Progress Note (short form) - Note Progress Note: comfortable no complains mood stable chart reviewed Vital Signs Temp 99 F 12/02/17 10:00 Pulse 75 12/02/17 10:00 Resp 18 12/02/17 10:00 BP 110/67 12/02/17 10:00 Pulse Ox 98 12/01/17 21:00 Intake & Output 12/01/17 12/01/17 12/02/17 11:59 23:59 11:59 Intake Total 400 820 Output Total 200 450 Balance 200 370 Intake: Oral 400 820 Output: Urine 200 450 Void 200 450 Other: Voiding Method Urinal Urinal Urinal # Unmeasured Voids Void 1 2 2 Bowel Movement No No Active Medications Bupropion HCl (Wellbutrin Xl -) 300 mg PO DAILY [facility] Last Admin: 12/02/17 10:32 Dose: 300 mg Dorzolamide HCl (Trusopt 2%) 1 drop OU BID [facility] Last Admin: 12/01/17 22:19 Dose: 1 drop Enoxaparin Sodium (Lovenox -) 70 mg SQ BID [facility] Last Admin: 12/02/17 10:33 Dose: 70 mg Folic Acid (Folic Acid -) 1 mg PO DAILY [facility] Last Admin: 12/02/17 10:31 Dose: 1 mg Gabapentin (Neurontin -) 300 mg PO TID [facility] Last Admin: 12/02/17 06:35 Dose: 300 mg Latanoprost (Xalatan 0.005% Eye Drops -) 1 drop OD HS [facility] Last Admin: 12/01/17 22:18 Dose: 1 drop Levetiracetam (Keppra Oral Solution -) 750 mg PO BID [facility] Last Admin: 12/02/17 10:33 Dose: 750 mg Metoprolol Succinate (Toprol Xl -) 25 mg PO DAILY [facility] Last Admin: 12/02/17 10:31 Dose: 25 mg Multivitamins (Total B With C -) 1 each PO DAILY [facility] Last Admin: 12/02/17 10:32 Dose: 1 each Nicotine (Nicoderm Patch -) 21 mg TD DAILY [facility] Last Admin: 12/02/17 10:33 Dose: 21 mg Phenytoin Sodium (Dilantin -) 100 mg PO BID [facility] Last Admin: 12/02/17 10:32 Dose: 100 mg Sertraline HCl (Zoloft -) 50 mg PO DAILY [facility] Last Admin: 12/02/17 10:31 Dose: 50 mg Timolol Maleate (Timoptic 0.5%) 1 drop OU BID [facility] Last Admin: 12/01/17 22:18 Dose: 1 drop CBC, BMP 12/02/17 07:00 12/02/17 06:25 INR, PTT INR 1.65 (0.83-1.09) H 11/29/17 05:30 Physical Exam. Constitutional: Yes: No Distress, Comfortable. Eyes: Yes: Conjunctiva Clear Neck: Yes: Supple, Trachea Midline Cardiovascular: Yes: Regular Rate and Rhythm Respiratory: Yes: Diminished Gastrointestinal: Yes: Normal Bowel Sounds, Soft Edema: No Neurological: Yes: Alert Psychiatric: Yes: Alert Assessment/Plan s/p syncope from [place] PE- s/p thrombectomy under IR as well as TPA Extensive RLE DVT Seizures LFT abnormality- most likely due to congestion/hypotention- Monitor schizoaffective d/o dementia -lovenox-- switch to Eliquis -CBC STABLE -continue current care - echo noted - will follow - d/c planning -- Anticipate tomorrow Problem List - Problems (1) DVT (deep venous thrombosis) Code(s): I82.409 - ACUTE EMBOLISM AND THOMBOS UNSP DEEP VN UNSP LOWER EXTREMITY (2) Elevated troponin I level Code(s): R74.8 - ABNORMAL LEVELS OF OTHER SERUM ENZYMES (3) Hypotension Code(s): I95.9 - HYPOTENSION, UNSPECIFIED (4) Pulmonary embolism Code(s): I26.99 - OTHER PULMONARY EMBOLISM WITHOUT ACUTE COR PULMONALE (5) Schizoaffective disorder Code(s): F25.9 - SCHIZOAFFECTIVE DISORDER, UNSPECIFIED (6) Seizure disorder Code(s): G40.909 - EPILEPSY, UNSP, NOT INTRACTABLE, WITHOUT STATUS EPILEPTICUS
--- NOTE | 2017-12-02 12:33 | PN ---
Progress Note (short form) - Note Progress Note: Resting in NAD. No acute events overnight. Denies shortness of breath or chest pain. OBJECTIVE: Intake & Output 11/29/17 11/30/1718 12/02/17 23:59 23:59 23:59 23:59 Intake Total 1115.8 1220 Output Total 300 2100 650 Balance 815.8 -2100 570 Weight 151 lb Last Vital Signs Temp Pulse Resp BP Pulse Ox 99 F 75 18 110/67 98 12/02/17 10:00 12/02/17 10:00 12/02/17 10:00 12/02/17 10:00 12/01/17 21:00 Active Medications Bupropion HCl (Wellbutrin Xl -) 300 mg PO DAILY [facility] Last Admin: 12/02/17 10:32 Dose: 300 mg Dorzolamide HCl (Trusopt 2%) 1 drop OU BID [facility] Last Admin: 12/01/17 22:19 Dose: 1 drop Enoxaparin Sodium (Lovenox -) 70 mg SQ BID [facility] Last Admin: 12/02/17 10:33 Dose: 70 mg Folic Acid (Folic Acid -) 1 mg PO DAILY [facility] Last Admin: 12/02/17 10:31 Dose: 1 mg Gabapentin (Neurontin -) 300 mg PO TID [facility] Last Admin: 12/02/17 06:35 Dose: 300 mg Latanoprost (Xalatan 0.005% Eye Drops -) 1 drop OD HS [facility] Last Admin: 12/01/17 22:18 Dose: 1 drop Levetiracetam (Keppra Oral Solution -) 750 mg PO BID [facility] Last Admin: 12/02/17 10:33 Dose: 750 mg Metoprolol Succinate (Toprol Xl -) 25 mg PO DAILY [facility] Last Admin: 12/02/17 10:31 Dose: 25 mg Multivitamins (Total B With C -) 1 each PO DAILY [facility] Last Admin: 12/02/17 10:32 Dose: 1 each Nicotine (Nicoderm Patch -) 21 mg TD DAILY [facility] Last Admin: 12/02/17 10:33 Dose: 21 mg Phenytoin Sodium (Dilantin -) 100 mg PO BID [facility] Last Admin: 12/02/17 10:32 Dose: 100 mg Sertraline HCl (Zoloft -) 50 mg PO DAILY [facility] Last Admin: 12/02/17 10:31 Dose: 50 mg Timolol Maleate (Timoptic 0.5%) 1 drop OU BID [facility] Last Admin: 12/01/17 22:18 Dose: 1 drop Gen: NAD at rest Heart: RRR Lung: decreased breath sounds at the bases Abd: soft, nontender Ext: no edema Laboratory Results - last 24 hr 11/27/17 12/02/17 12/02/17 19:34 06:25 07:00 WBC 5.4 RBC 3.87 L Hgb 11.2 L Hct 33.6 L MCV 86.9 MCH 29.0 MCHC 33.4 RDW 14.0 Plt Count 195 MPV 8.4 PTT (Actin FS) Sodium 146 H Potassium 3.8 Chloride 111 H Carbon Dioxide 26 Anion Gap 9 BUN 4 L Creatinine 0.7 Creat Clearance w eGFR > 60 Random Glucose 89 Calcium 8.3 L Total Bilirubin 0.4 AST 48 H D ALT 125 H D Alkaline Phosphatase 141 H Total Protein 6.3 L Albumin 2.6 L Levetiracetam 20.3 12/02/17 07:00 WBC RBC Hgb Hct MCV MCH MCHC RDW Plt Count MPV PTT (Actin FS) 29.0 Sodium Potassium Chloride Carbon Dioxide Anion Gap BUN Creatinine Creat Clearance w eGFR Random Glucose Calcium Total Bilirubin AST ALT Alkaline Phosphatase Total Protein Albumin Levetiracetam ASSESSMENT AND PLAN: Acute Pulmonary Embolism s/p catheter directed thrombectomy/thrombolysis +Troponins Cardiogenic vs Obstructive Shock Seizure Disorder Schizoaffective Disorder Dementia - AC with Lovenox 70mg BID:either transition to coumadin or NOAC: compliance likely to be an issue - O2 to keep SpO2>90% - PO as tolerated Dr Betancourt
[2017-12-02] MEDS: TIMOLOL 0.5% OPHTHALMIC SOL 5 ML BOTTLE OU SCH ×3 (15:37→22:51)
[2017-12-02] MEDS: DORZOLAMIDE 2% HCL OPHTHALMIC SOLUTION 10 ML BOTTLE OU SCH ×3 (15:38→22:51)
[2017-12-02] MEDS ORDERED: LATANOPROST 0.005% OPHTH SOLN 2.5ML BOTTLE OD SCH (22:00)
[2017-12-03] MEDS: GABAPENTIN 300 MG CAPSULE (FP) PO SCH ×2 (05:57→13:57)
[2017-12-03 07:24] LABS: HEMATOCRIT 37.2 % (35.4-49); HEMOGLOBIN 12.3 GM/dL (11.7-16.9); MCH 28.8 pg (25.7-33.7); MCHC 32.9 g/dl (32.0-35.9); MEAN CELL VOLUME 87.5 fl (80-96); MEAN PLT VOLUME 9.1 fl (7.5-11.1); PLATELET COUNT 200 K/MM3 (134-434); RBC 4.25 M/mm3 (4.00-5.60); RDW 14.1 % (11.9-15.9); WHITE BLOOD COUNT 6.5 K/mm3 (4.0-10.0)
[2017-12-03] MEDS: ENOXAPARIN NA (PORCINE) 80 MG/0.8 ML DISP.SYRIN SQ SCH (09:45)
[2017-12-03] MEDS: PHENYTOIN NA EXTENDED 100 MG CAPSULE (FP) PO SCH (09:46)
[2017-12-03] MEDS: levETIRAcetam 500 MG/5 ML ORAL SOLUTION (UNIT-DOSE CUPS) PO SCH (09:46)
[2017-12-03] MEDS: TIMOLOL 0.5% OPHTHALMIC SOL 5 ML BOTTLE OU SCH (09:46)
[2017-12-03] MEDS: DORZOLAMIDE 2% HCL OPHTHALMIC SOLUTION 10 ML BOTTLE OU SCH (09:47)
[2017-12-03] MEDS ORDERED: VITAMIN B COMP W-C 1 EA TABLET PO SCH (10:00)
[2017-12-03] MEDS ORDERED: SERTRALINE HCL 50 MG TABLET (FP) PO SCH (10:00)
[2017-12-03] MEDS ORDERED: NICOTINE 21 MG/24 HOURS TOPICAL PATCH TD SCH (10:00)
[2017-12-03] MEDS ORDERED: FOLIC ACID 1 MG TABLET (FP) PO SCH (10:00)
[2017-12-03] MEDS ORDERED: metoPROLOL SUCCINATE 25 MG TAB.SR.24H (FP) PO SCH (10:00)
--- NOTE | 2017-12-03 11:12 | DS ---
Physical Examination Vital Signs: Vital Signs Temperature 98 F 12/03/17 09:42 Pulse Rate 72 12/03/17 09:42 Respiratory Rate 18 12/03/17 09:42 Blood Pressure 112/67 12/03/17 09:42 O2 Sat by Pulse Oximetry (%) 98 12/03/17 09:00 Findings/Remarks: comfortable no complains denies cp/sob. Constitutional: Yes: No Distress, Calm Neck: Yes: Supple Cardiovascular: Yes: Regular Rate and Rhythm Respiratory: Yes: CTA Bilaterally Gastrointestinal: Yes: Soft Edema: No Neurological: Yes: Alert Psychiatric: Yes: Alert Labs: CBC, BMP 12/03/17 06:15 12/02/17 06:25 Discharge Summary Reason For Visit: PULMONARY EMBOLISM Current Active Problems DVT (deep venous thrombosis) (Acute) Dementia (Acute) Elevated troponin I level (Acute) Hypotension (Acute) Liver function abnormality (Acute) PVD (peripheral vascular disease) (Acute) Pulmonary embolism (Acute) Schizoaffective disorder (Acute) Seizure disorder (Acute) Hospital Course: Admitted from [facility] for syncope/ cp work up showed acute PE In summary Acute Pulmonary Embolism s/p catheter directed thrombectomy/thrombolysis-- emergently done +Troponins-- [place] Cardiogenic vs Obstructive Shock Admitted to icu Heparinized Now on Lovenox better switch to Eliquis-- Atleast 3 months-- seen by Hematology Smoking cessation Meds reconcilled [facility] Discussed with nursing staff/ program manager slp D/ C time 35 min in examining/ documenting and coordating care Condition: Improved - Instructions [facility] - Home Medications Comprehensive Discharge Medication List: Ambulatory Orders Acetaminophen 1,000 mg PO Q8H PRN 11/27/17 Bupropion HCl [Wellbutrin Xl] 300 mg PO DAILY 11/27/17 Dorzolamide/Timolol/Pf [Cosopt Pf Eye Drops] 1 each OP BID 11/27/17 Folic Acid 1 mg PO DAILY 11/27/17 Gabapentin [Neurontin -] 300 mg PO Q8H 11/27/17 Latanoprost 0.005% Eye Drops [Xalatan 0.005% Eye Drops -] 1 drop HS 11/27/17 Magnesium Hydrox 2400MG/30Ml [Milk of Magnesia -] 30 ml PO ONCE PRN 11/27/17 Nicotine Patch [Nicoderm Patch -] 1 patch TD DAILY 11/27/17 Phenytoin Na Extended [Dilantin -] 100 mg PO BID 11/27/17 Phenytoin Na Extended [Dilantin -] 200 mg PO HS 11/27/17 Sertraline HCl [Zoloft -] 50 mg PO DAILY 11/27/17 Sodium Phosphate,Gunnison-Dibasic [Fleet Enema] 133 ml RC DAILY PRN 11/27/17 Vitamin B Complex 1 each PO DAILY 11/27/17 levETIRAcetam [Keppra Oral Solution -] 750 mg PO BID 11/27/17 Apixaban [Eliquis] 5 mg PO BID #30 tablet 12/03/17 Metoprolol Succinate [Toprol XL -] 25 mg PO DAILY tab.sr.24h 12/03/17
--- NOTE | 2017-12-03 12:32 | PN ---
Progress Note, Physician History of Present Illness: pulmonary alert,nad,-cp,-sob,-cough - Current Medication List Current Medications: Active Medications Bupropion HCl (Wellbutrin Xl -) 300 mg PO DAILY [facility] Last Admin: 12/03/17 09:45 Dose: 300 mg Dorzolamide HCl (Trusopt 2%) 1 drop OU BID [facility] Last Admin: 12/03/17 09:47 Dose: 1 drop Enoxaparin Sodium (Lovenox -) 70 mg SQ BID [facility] Last Admin: 12/03/17 09:45 Dose: 70 mg Folic Acid (Folic Acid -) 1 mg PO DAILY [facility] Last Admin: 12/03/17 09:45 Dose: 1 mg Gabapentin (Neurontin -) 300 mg PO TID [facility] Last Admin: 12/03/17 05:57 Dose: 300 mg Latanoprost (Xalatan 0.005% Eye Drops -) 1 drop OD HS [facility] Last Admin: 12/02/17 22:51 Dose: 1 drop Levetiracetam (Keppra Oral Solution -) 750 mg PO BID [facility] Last Admin: 12/03/17 09:46 Dose: 750 mg Metoprolol Succinate (Toprol Xl -) 25 mg PO DAILY [facility] Last Admin: 12/03/17 09:45 Dose: 25 mg Multivit/Ca Carb/B Cmplx/FA/Prenat (Nephro-Margo -) 1 tablet PO DAILY [facility] Last Admin: 12/03/17 09:45 Dose: 1 tablet Nicotine (Nicoderm Patch -) 21 mg TD DAILY [facility] Last Admin: 12/03/17 09:45 Dose: 21 mg Phenytoin Sodium (Dilantin -) 100 mg PO BID [facility] Last Admin: 12/03/17 09:46 Dose: 100 mg Sertraline HCl (Zoloft -) 50 mg PO DAILY [facility] Last Admin: 12/03/17 09:45 Dose: 50 mg Timolol Maleate (Timoptic 0.5%) 1 drop OU BID [facility] Last Admin: 12/03/17 09:46 Dose: 1 drop - Objective Vital Signs: Vital Signs Temperature 98 F 12/03/17 09:42 Pulse Rate 72 12/03/17 09:42 Respiratory Rate 18 12/03/17 09:42 Blood Pressure 112/67 12/03/17 09:42 O2 Sat by Pulse Oximetry (%) 98 12/03/17 09:00 Constitutional: Yes: Well Nourished, Calm Eyes: Yes: WNL HENT: Yes: WNL Neck: Yes: WNL Cardiovascular: Yes: Regular Rate and Rhythm, S1, S2 Respiratory: Yes: Diminished Gastrointestinal: Yes: Normal Bowel Sounds, Soft Extremities: Yes: WNL Edema: No Labs: CBC, BMP 12/03/17 06:15 Problem List - Problems (1) DVT (deep venous thrombosis) Code(s): I82.409 - ACUTE EMBOLISM AND THOMBOS UNSP DEEP VN UNSP LOWER EXTREMITY (2) Pulmonary embolism Code(s): I26.99 - OTHER PULMONARY EMBOLISM WITHOUT ACUTE COR PULMONALE (3) Seizure disorder Code(s): G40.909 - EPILEPSY, UNSP, NOT INTRACTABLE, WITHOUT STATUS EPILEPTICUS (4) Dementia Code(s): F03.90 - UNSPECIFIED DEMENTIA WITHOUT BEHAVIORAL DISTURBANCE (5) Elevated troponin I level Code(s): R74.8 - ABNORMAL LEVELS OF OTHER SERUM ENZYMES (6) Hypotension Code(s): I95.9 - HYPOTENSION, UNSPECIFIED (7) Schizoaffective disorder Code(s): F25.9 - SCHIZOAFFECTIVE DISORDER, UNSPECIFIED Assessment/Plan ASSESSMENT AND PLAN: Acute Pulmonary Embolism s/p catheter directed thrombectomy/thrombolysis +Troponins Cardiogenic vs Obstructive Shock Seizure Disorder Schizoaffective Disorder Dementia - AC with Lovenox 70mg BID:either transition to coumadin or NOAC - O2 to keep SpO2>90% DR HOLDEN
[2017-12-03 15:20] VITALS: BP 105/57; PULSE 70; TEMP 98.7
== END 2017-12-03 15:36 | DRG 164 ==
LOC: JER 18:32 → JICU 22:42 → J5S 11-29 16:48
PROVIDERS: ADMIT Internal Medicine; ATTEND Internal Medicine
PROC: 02CR3ZZ Extirpation of Matter from Left Pulmonary Artery, Percutaneous Approach (ICD-10-PCS; principal; 2017-11-27)
PROC: 02CQ3ZZ Extirpation of Matter from Right Pulmonary Artery, Percutaneous Approach (ICD-10-PCS; 2017-11-27)
PROC: 3E05317 Introduction of Other Thrombolytic into Peripheral Artery, Percutaneous Approach (ICD-10-PCS; 2017-11-27)
DX: I26.99 Other pulmonary embolism without acute cor pulmonale (principal); I82.409 Acute embolism and thrombosis of unspecified deep veins of unspecified lower extremity; I47.1 Supraventricular tachycardia; I95.9 Hypotension, unspecified; G40.909 Epilepsy, unspecified, not intractable, without status epilepticus; F25.9 Schizoaffective disorder, unspecified; I73.9 Peripheral vascular disease, unspecified; F03.90 Unspecified dementia, unspecified severity, without behavioral disturbance, psychotic disturbance, mood disturbance, and anxiety; R74.8 Abnormal levels of other serum enzymes; R55 Syncope and collapse; R07.9 Chest pain, unspecified
CPT/HCPCS: 36415; 37184; 70450-TC; 71045-TC-FY; 71275-TC; 75743-TC-FY; 76000-TC-FY; 76937-TC; 80053; 80185; 82550; 83735; 84100; 84484; 85025; 85027; 85610; 85730; 93005; 93010; 93306-TC; 93970-TC; 99285-25; C1769; C1894; C9999; J1644; J2997; J7030

== ENCOUNTER 2018-01-09 12:12 | Inpatient (IN) | payer OTHER ==
--- NOTE | 2018-01-09 12:31 | PDOC ---
History of Present Illness - General Stated Complaint: POSSIBLE STROKE Time Seen by Provider: 01/09/18 12:25 - History of Present Illness Initial Comments: 72yo M with PMH seizure, schizophrenia, and recent PE on Eliquis presenting with slurred speech. Collateral history is provided by patients sister at the bedside. Sister visited yesterday and noticed that the patient had slurred speech, his words did not make sense, and he was not himself. Upon seeing him today, she reports that he has worsened. Patient used to ambulate without assistance and is now unable to walk. Patient has no acute complaints. Denies history of stroke. No fevers, chills, chest pain, nausea, vomiting, or shortness of breath. NIH Stroke Scale - Last Known Well Date/Time & Onset Date Last Known Well: 01/06/18 (According to sister; staff at [facility] may have further information) - Initial Evaluation Level of consciousness: Alert Ask patient the month and their age: Both incorrect Ask patient to open & close eyes; make fist and let go: Obeys both correctly Best gaze (horizontal eye movement): Normal Visual field testing: No visual field loss Motor Function: Left Arm: Normal Motor Function: Right Arm: Normal (extends arm 90 (or 45) degrees for 10 seconds without drift Motor Function: Left Leg: Some effort against gravity Motor Function: Right Leg: No effort against gravity Limb Ataxia: No ataxia Sensory(Use pinprick test arms,legs,trunk,face/side to side): Normal Best language (Describe picture, name items, read sentences): Severe aphasia Dysarthria (read several words): Near unintelligible or unable to speak Extinction and Inattention: No abnormality Past History - Past Medical History Allergies/Adverse Reactions: Allergies Allergy/AdvReac Type Severity Reaction Status Date / Time No Known Allergies Allergy Verified 01/09/18 12:37 Home Medications: Ambulatory Orders Acetaminophen 1,000 mg PO Q8H PRN 11/27/17 Bupropion HCl [Wellbutrin Xl] 300 mg PO DAILY 11/27/17 Dorzolamide/Timolol/Pf [Cosopt Pf Eye Drops] 1 each OP BID 11/27/17 Folic Acid 1 mg PO DAILY 11/27/17 Gabapentin [Neurontin -] 300 mg PO Q8H 11/27/17 Latanoprost 0.005% Eye Drops [Xalatan 0.005% Eye Drops -] 1 drop OU HS 11/27/17 Magnesium Hydrox 2400MG/30Ml [Milk of Magnesia -] 30 ml PO ONCE PRN 11/27/17 Nicotine Patch [Nicoderm Patch -] 1 patch TD DAILY 11/27/17 Phenytoin Na Extended [Dilantin -] 300 mg PO Q8H 11/27/17 Sertraline HCl [Zoloft -] 50 mg PO DAILY 11/27/17 Sodium Phosphate,[place]-Dibasic [Fleet Enema] 133 ml RC DAILY PRN 11/27/17 Vitamin B Complex 1 each PO DAILY 11/27/17 levETIRAcetam [Keppra Oral Solution -] 1,000 mg PO BID 11/27/17 Apixaban [Eliquis] 5 mg PO BID #30 tablet 12/03/17 Metoprolol Succinate [Toprol XL -] 25 mg PO DAILY tab.sr.24h 12/03/17 - Suicide/Smoking/Psychosocial Hx Smoking History: Never smoked Have you smoked in the past 12 months: No Hx Alcohol Use: No Drug/Substance Use Hx: No Substance Use Type: None Review of Systems - Review of Systems Comments:: Constitutional: no fever, no chills Cardiovascular: no chest pain, no palpitations Respiratory: no cough, no shortness of breath Gastrointestinal: no abdominal pain, no nausea, no vomiting Skin: no rash, no itching Neurologic: no headache, no dizziness *Physical Exam - Physical Exam Comments: General: Awake, alert, and oriented to person and place, but not time, in no acute distress Head: no signs of trauma Eyes: EOMI, sclera anicteric ENT: Moist mucus membranes Neck: Normal ROM, supple Lungs: Lungs clear, Normal breath sounds Cardio: Regular rhythm, S1 and S2 present Abdomen: Soft, nontender, normal bowel sounds Extremities: Normal range of motion, Distal pulses present SKIN: Warm, Dry, normal turgor Neurologic: Cranial nerves II through XII grossly intact. Abnormal speech. Normal strength, Normal [id number]; Profoundly off-balance upon standing; unable to ambulate ED Treatment Course - LABORATORY CBC & Chemistry Diagram: 01/09/18 13:41 01/09/18 13:41 Medical Decision Making - Medical Decision Making Collateral history provided by sister, Norma Phillips, present at bedside. She would like updates regarding patient's disposition [phone] or [phone] 01/09/18 13:19 CT head negative. Labs unremarkable. Plan to admit patient for further neurological workup. 01/09/18 14:[address] Wilma Askew who will accept patient for telemetry admission. 01/09/18 14:50 *DC/Admit/Observation/Transfer Diagnosis at time of Disposition: Stroke Qualifiers: Laterality of affected vessel: unspecified - Discharge Dispostion Condition at time of disposition: Guarded Decision to Admit order: Yes - Referrals - Patient Instructions - Post Discharge Activity
--- NOTE | 2018-01-09 12:36 | PDOC ---
Attending Attestation - Resident Resident Name: Velma Musa - ED Attending Attestation I have performed the following: I have examined & evaluated the patient, The case was reviewed & discussed with the resident, I agree w/resident's findings & plan, Exceptions are as noted - HPI HPI: 01/09/18 12:38 72-year-old male patient with past medical history dementia, seizures, schizoaffective disorder, peripheral vascular disease presents with slurring of speech since yesterday. The patient's sister had noted that the patient has not been like. He typically can speak clearly and ablates without system. No to since yesterday that he was not getting up and was having some aphasia and dysarthria. Patient denies any symptoms and wanted to go home. Denies recent illnesses. Was sent to the ER for further evaluation. In November 2017, the patient was recently admitted for chest pain. At that time, he had a troponin of 1.6. CAT scan at that time demonstrated bilateral pulmonary embolism and hypotensive. The patient was amended to the ICU for further management. The patient underwent a catheter directed thrombectomy and thrombolysis. The patient was evaluated and switched to [facility] and discharge back to detention. - Physicial Exam PE: 01/09/18 13:14 GENERAL: Awake, alert. Unable to assess orientation 2/2 dysarthria., in no acute distress HEAD: No signs of trauma EYES:EOMI, sclera anicteric, conjunctiva clear ENT: Auricles normal inspection, hearing grossly normal, nares patent Moist mucosa NECK: Normal ROM, supple, LUNGS: Breath sounds equal, clear to auscultation bilaterally. No wheezes, and no crackles HEART: Regular rate and rhythm, normal S1 and S2, no murmurs, rubs or gallops ABDOMEN: Soft, nontender, No guarding, no rebound. No masses EXTREMITIES: Normal range of motion, no edema. No clubbing or cyanosis. No cords, erythema, or tenderness NEUROLOGICAL: Cranial nerves II through XII intact. +dysarthria, +aphasia. Unable to answer 2 questions correctly. sensation intact throughout. 5/5 strength upper and lower extremities. No pronator drift. SKIN: Warm, Dry, normal turgor, no rashes or lesions noted. - Medical Decision Making 01/09/18 13:19 Vital Signs Temp Pulse Resp BP Pulse Ox 98.2 F 73 18 137/80 100 01/09/18 12:30 01/09/18 12:30 01/09/18 12:30 01/09/18 12:30 01/09/18 12:30 The patient appears to have stroke like symptoms. Patient is outside of TPA window since the symptoms were started yesterday and the patient is on an anticoagulant. Differential includes ischemic versus hemorrhagic stroke, metabolic disarray, infectious etiology, cardiac etiology. We'll obtain labs including urinalysis. CAT scan the head. EKG. Patient should be admitted to the hospital for likely MRI. 01/09/18 14:34 CBC, BMP 01/09/18 13:41 01/09/18 13:41 CMP Sodium 140 mmol/L (136-145) 01/09/18 13:41 Potassium 4.3 mmol/L (3.5-5.1) 01/09/18 13:41 Chloride 104 mmol/L (98-107) 01/09/18 13:41 Carbon Dioxide 30 mmol/L (21-32) 01/09/18 13:41 Anion Gap 6 MMOL/L (8-16) L 01/09/18 13:41 BUN 7 mg/dL (7-18) 01/09/18 13:41 Creatinine 0.8 mg/dL (0.55-1.3) 01/09/18 13:41 Creat Clearance w eGFR > 60 (>60) 01/09/18 13:41 POC Glucometer 138.49199 UNITS (80-120) 01/09/18 12:26 Random Glucose 128 mg/dL (74-106) H 01/09/18 13:41 Calcium 9.3 mg/dL (8.5-10.1) 01/09/18 13:41 Phosphorus 2.1 mg/dL (2.5-4.9) L 01/09/18 13:41 Magnesium 2.2 mg/dL (1.8-2.4) 01/09/18 13:41 Total Bilirubin 0.2 mg/dL (0.2-1) 01/09/18 13:41 AST 23 U/L (15-37) 01/09/18 13:41 ALT 22 U/L (13-61) 01/09/18 13:41 Alkaline Phosphatase 171 U/L (45-117) H 01/09/18 13:41 Creatine Kinase 95 IU/L (26-308) 01/09/18 13:41 Troponin I < 0.02 ng/ml (0.00-0.05) 01/09/18 13:41 Total Protein 8.0 g/dl (6.4-8.2) 01/09/18 13:41 Albumin 3.6 g/dl (3.4-5.0) 01/09/18 13:41 Triglycerides 90 mg/dL (0-150) 01/09/18 13:41 Cholesterol 146 mg/dL (50-200) 01/09/18 13:41 Total LDL Cholesterol 74 mg/dL (5-100) 01/09/18 13:41 HDL Cholesterol 69 mg/dL (40-60) H 01/09/18 13:41 CT head reviewed. No acute findings. Heart Score/ECG Review #1 ECG reviewed & interpreted by me at: 12:35 01/09/18 12:35 NSR 69, no std/magi, T wave III, Q Wave III, normal axis, normal intervals, QTC 430 msec NIH Stroke Scale - Last Known Well Date/Time & Onset Date Last Known Well: 01/08/18 - Initial Evaluation Level of consciousness: Alert Ask patient the month and their age: Both incorrect Ask patient to open & close eyes; make fist and let go: Obeys both correctly Best gaze (horizontal eye movement): Normal Visual field testing: No visual field loss Facial paresis (Show teeth/raise eyebrows/close eyes tight): Normal symmetrical movement Motor Function: Left Arm: Normal Motor Function: Right Arm: Normal (extends arm 90 (or 45) degrees for 10 seconds without drift Motor Function: Left Leg: Normal (extends leg 30 degrees for 5 seconds without drift) Motor Function: Right Leg: Normal (extends leg 30 degrees for 5 seconds without drift) Limb Ataxia: No ataxia Sensory(Use pinprick test arms,legs,trunk,face/side to side): Normal Best language (Describe picture, name items, read sentences): Mild to moderate aphasia Dysarthria (read several words): Mild to moderate slurring of words Extinction and Inattention: No abnormality - Total Score NIH Stroke Scale Score: 4
[2018-01-09 12:54] VITALS: BMI 20.9
[2018-01-09 13:56] LABS: BASO % 1.7 % (0-2.0); EOS % 8.8 % (0-4.5); HEMATOCRIT 43.3 % (35.4-49); HEMOGLOBIN 13.9 GM/dL (11.7-16.9); LYMPH % 33.8 % (8-40); MCH 28.4 pg (25.7-33.7); MCHC 32.2 g/dl (32.0-35.9); MEAN CELL VOLUME 88.1 fl (80-96); MEAN PLT VOLUME 9.2 fl (7.5-11.1); MONO % 8.6 % (3.8-10.2); NEUT % 47.1 % (42.8-82.8); PLATELET COUNT 217 K/MM3 (134-434); RBC 4.92 M/mm3 (4.00-5.60); RDW 14.4 % (11.9-15.9); WHITE BLOOD COUNT 6.5 K/mm3 (4.0-10.0)
[2018-01-09 14:03] LABS: INR 1.28 (0.83-1.09); PROTHROMBIN TIME (PATIENT) 15.2 SEC (9.7-13.0)
[2018-01-09 14:17] LABS: ALBUMIN 3.6 g/dl (3.4-5.0); ALK PHOS 171 U/L (45-117); ANION GAP 6 MMOL/L (8-16); BILIRUBIN,TOTAL 0.2 mg/dL (0.2-1); BLOOD UREA NITROGEN 7 mg/dL (7-18); CALCIUM 9.3 mg/dL (8.5-10.1); CHLORIDE 104 mmol/L (98-107); CHOLESTEROL 146 mg/dL (50-200); CO2 30 mmol/L (21-32); CREATININE 0.8 mg/dL (0.55-1.3); GLUCOSE,RANDOM 128 mg/dL (74-106); HDL CHOLESTEROL 69 mg/dL (40-60); MAGNESIUM 2.2 mg/dL (1.8-2.4); PHOSPHOROUS 2.1 mg/dL (2.5-4.9); POTASSIUM 4.3 mmol/L (3.5-5.1); SGOT/AST 23 U/L (15-37); SGPT/ALT 22 U/L (13-61); SODIUM 140 mmol/L (136-145); TRIGLYCERIDES 90 mg/dL (0-150)
[2018-01-09] MEDS ORDERED: ACETAMINOPHEN 500 MG TABLET (FP) PO PRN (15:49)
--- NOTE | 2018-01-09 15:56 | HP ---
Admitting History and Physical - Primary Care Physician PCP: Tiffany Askew - Admission Chief Complaint: sluured speech History of Present Illness: 72yo M with PMH seizure, schizophrenia, and recent PE-- s/p thrombectomy presenting with slurred speech.==from [facility]. was outside window of tpa ct head -ve being admitted to tele neuro called pt already on a/c Pt seen/ examined by me in er -- discussed with er resident as well as nursing staff. 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 Cardiovascular: Yes: Other (Peripheral vascular disease.) Pulmonary: Yes: Pulmonary Embolus, Other - Smoking History Smoking history: Former smoker Have you smoked in the past 12 months: No - Alcohol/Substance Use Hx Alcohol Use: No - Social History Usual Living Arrangement: Yes: Alf Home Medications - Allergies Allergies/Adverse Reactions: Allergies Allergy/AdvReac Type Severity Reaction Status Date / Time No Known Allergies Allergy Verified 01/09/18 12:37 - Home Medications Home Medications: Ambulatory Orders Acetaminophen 1,000 mg PO Q8H PRN 11/27/17 Bupropion HCl [Wellbutrin Xl] 300 mg PO DAILY 11/27/17 Dorzolamide/Timolol/Pf [Cosopt Pf Eye Drops] 1 each OP BID 11/27/17 Folic Acid 1 mg PO DAILY 11/27/17 Gabapentin [Neurontin -] 300 mg PO Q8H 11/27/17 Latanoprost 0.005% Eye Drops [Xalatan 0.005% Eye Drops -] 1 drop OU HS 11/27/17 Magnesium Hydrox 2400MG/30Ml [Milk of Magnesia -] 30 ml PO ONCE PRN 11/27/17 Nicotine Patch [Nicoderm Patch -] 1 patch TD DAILY 11/27/17 Phenytoin Na Extended [Dilantin -] 300 mg PO Q8H 11/27/17 Sertraline HCl [Zoloft -] 50 mg PO DAILY 11/27/17 Sodium Phosphate,[place]-Dibasic [Fleet Enema] 133 ml RC DAILY PRN 11/27/17 Vitamin B Complex 1 each PO DAILY 11/27/17 levETIRAcetam [Keppra Oral Solution -] 1,000 mg PO BID 11/27/17 Apixaban [Eliquis] 5 mg PO BID #30 tablet 12/03/17 Metoprolol Succinate [Toprol XL -] 25 mg PO DAILY tab.sr.24h 12/03/17 Review of Systems Unable to obtain ROS, reason: clinical condition Physical Examination Vital Signs: Vital Signs Temperature 98.2 F 01/09/18 12:30 Pulse Rate 73 01/09/18 12:30 Respiratory Rate 18 01/09/18 12:30 Blood Pressure 137/80 01/09/18 12:30 O2 Sat by Pulse Oximetry (%) 100 01/09/18 12:30 Constitutional: Yes: No Distress Eyes: Yes: Conjunctiva Clear, PERRL Neck: Yes: Supple Cardiovascular: Yes: Regular Rate and Rhythm Respiratory: Yes: CTA Bilaterally Gastrointestinal: Yes: Soft Edema: No Neurological: Yes: Alert, Cran Nerves II-XII Intact, Dysarthria (power 5/5 - in all extremities no gaze), Other Labs: CBC, BMP 01/09/18 13:41 01/09/18 13:41 Imaging - Results Chest X-ray: Report Reviewed Cat Scan: Report Reviewed EKG: Report Reviewed Problem List - Problems (1) Nicotine dependence Code(s): F17.200 - NICOTINE DEPENDENCE, UNSPECIFIED, UNCOMPLICATED (2) Stroke Code(s): I63.9 - CEREBRAL INFARCTION, UNSPECIFIED Qualifiers: Laterality of affected vessel: unspecified (3) Dementia Code(s): F03.90 - UNSPECIFIED DEMENTIA WITHOUT BEHAVIORAL DISTURBANCE (4) Pulmonary embolism Code(s): I26.99 - OTHER PULMONARY EMBOLISM WITHOUT ACUTE COR PULMONALE (5) Schizoaffective disorder Code(s): F25.9 - SCHIZOAFFECTIVE DISORDER, UNSPECIFIED (6) Seizure disorder Code(s): G40.909 - EPILEPSY, UNSP, NOT INTRACTABLE, WITHOUT STATUS EPILEPTICUS Assessment/Plan Admit to tele neurology to follow. orders written fluids npo for now s/s eval will need mri further recommendations per clinical course.
[2018-01-09] MEDS ORDERED: SODIUM CHLORIDE 0.9%/KCL 20 MEQ/1,000 ML INFUS.BAG IV SCH (16:15)
[2018-01-09] MEDS: PHENYTOIN SODIUM 100 MG/2 ML VIAL IVPB SCH (18:25)
[2018-01-09 18:28] LABS: URINE APPEARANCE CLEAR; URINE BILIRUBIN NEGATIVE (<2.0 mg/dL); URINE COLOR YELLOW; URINE GLUCOSE (UA) NEGATIVE (NEGATIVE); URINE KETONE NEGATIVE (NEGATIVE); URINE NITRITE NEGATIVE (NEGATIVE); URINE PROTEIN NEGATIVE (NEGATIVE); URINE UROBILINOGEN NEGATIVE mg/dL (0.2-1.0)
[2018-01-09 18:39] LABS: URINE LEUK ESTERASE 2+ (NEGATIVE)
[2018-01-09 18:41] LABS: EPI CELLS RARE /HPF (FEW)
[2018-01-09] MEDS ORDERED: PHENYTOIN NA EXTENDED 100 MG CAPSULE (FP) PO SCH (22:00)
[2018-01-09] MEDS ORDERED: PATIENT'S OWN MEDICATION (NON-FORMULARY) (Dorzolamide/Timolol/Pf [Cosopt Pf Eye Drops] 1 E OP SCH (22:00)
[2018-01-09] MEDS ORDERED: levETIRAcetam 500 MG/5 ML INJECTION VIAL IVPB ONE (22:29)
[2018-01-09] MEDS: levETIRAcetam 500 MG/5 ML INJECTION VIAL IVPB SCH (22:34)
[2018-01-09] MEDS: APIXABAN 5 MG TABLET PO SCH (22:35)
[2018-01-09] MEDS: LATANOPROST 0.005% OPHTH SOLN 2.5ML BOTTLE OU SCH (22:36)
[2018-01-09] MEDS: TIMOLOL 0.5% OPHTHALMIC SOL 5 ML BOTTLE OU SCH (22:36)
[2018-01-09] MEDS: DORZOLAMIDE 2% HCL OPHTHALMIC SOLUTION 10 ML BOTTLE OU SCH (22:36)
[2018-01-10] MEDS: PHENYTOIN SODIUM 100 MG/2 ML VIAL IVPB SCH (04:30)
[2018-01-10 06:20] LABS: BASO % 0.7 % (0-2.0); EOS % 7.1 % (0-4.5); HEMATOCRIT 38.9 % (35.4-49); HEMOGLOBIN 12.5 GM/dL (11.7-16.9); LYMPH % 37.9 % (8-40); MCH 28.4 pg (25.7-33.7); MCHC 32.3 g/dl (32.0-35.9); MEAN CELL VOLUME 88.1 fl (80-96); MEAN PLT VOLUME 10.3 fl (7.5-11.1); MONO % 8.6 % (3.8-10.2); NEUT % 45.7 % (42.8-82.8); PLATELET COUNT 172 K/MM3 (134-434); RBC 4.41 M/mm3 (4.00-5.60); RDW 14.5 % (11.9-15.9); WHITE BLOOD COUNT 7.3 K/mm3 (4.0-10.0)
--- NOTE | 2018-01-10 09:15 | CON.NEURO ---
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 Cardio/Vascular: Yes: Other (Peripheral vascular disease.) Pulmonary: Yes: Pulmonary Embolus, Other - Alcohol/Substance Use Hx Alcohol Use: No - Smoking History Smoking history: Never smoked Have you smoked in the past 12 months: No Home Medications - Allergies Allergies/Adverse Reactions: Allergies Allergy/AdvReac Type Severity Reaction Status Date / Time No Known Allergies Allergy Verified 01/09/18 12:37 - Home Medications Home Medications: Ambulatory Orders Acetaminophen 1,000 mg PO Q8H PRN 11/27/17 Bupropion HCl [Wellbutrin Xl] 300 mg PO DAILY 11/27/17 Dorzolamide/Timolol/Pf [Cosopt Pf Eye Drops] 1 each OP BID 11/27/17 Folic Acid 1 mg PO DAILY 11/27/17 Gabapentin [Neurontin -] 300 mg PO Q8H 11/27/17 Latanoprost 0.005% Eye Drops [Xalatan 0.005% Eye Drops -] 1 drop OU HS 11/27/17 Magnesium Hydrox 2400MG/30Ml [Milk of Magnesia -] 30 ml PO ONCE PRN 11/27/17 Nicotine Patch [Nicoderm Patch -] 1 patch TD DAILY 11/27/17 Phenytoin Na Extended [Dilantin -] 300 mg PO Q8H 11/27/17 Sertraline HCl [Zoloft -] 50 mg PO DAILY 11/27/17 Sodium Phosphate,[place]-Dibasic [Fleet Enema] 133 ml RC DAILY PRN 11/27/17 Vitamin B Complex 1 each PO DAILY 11/27/17 levETIRAcetam [Keppra Oral Solution -] 1,000 mg PO BID 11/27/17 Apixaban [Eliquis] 5 mg PO BID #30 tablet 12/03/17 Metoprolol Succinate [Toprol XL -] 25 mg PO DAILY tab.sr.24h 12/03/17 Physical Exam-Neuro Vital Signs: Vital Signs Temperature 98.9 F 01/10/18 05:00 Pulse Rate 79 01/10/18 05:00 Respiratory Rate 20 01/10/18 05:00 Blood Pressure 122/77 01/10/18 05:00 O2 Sat by Pulse Oximetry (%) 98 01/10/18 03:08 Labs: CBC, BMP 01/10/18 05:30 INR, PTT INR 1.28 (0.83-1.09) H 01/09/18 13:41 Assessment/Plan cc Slurring of speech HPI 72 year old male , [facility] resident. He has history of schizophrenia, seizure, pe on eliquis. Patient had ct head and it was unmremarkable. His dialntin level was 49 and he was taking dilnatin 300 mg q8 hour. This is quite high dose. He do have history of dementia. He has been agitated here in hospital and has to be restrained as he was at risk of fall. PMH as above PSH,FH, ROS reviewed in chart Home Medications: Ambulatory Orders Acetaminophen 1,000 mg PO Q8H PRN 11/27/17 Bupropion HCl [Wellbutrin Xl] 300 mg PO DAILY 11/27/17 Dorzolamide/Timolol/Pf [Cosopt Pf Eye Drops] 1 each OP BID 11/27/17 Folic Acid 1 mg PO DAILY 11/27/17 Gabapentin [Neurontin -] 300 mg PO Q8H 11/27/17 Latanoprost 0.005% Eye Drops [Xalatan 0.005% Eye Drops -] 1 drop OU HS 11/27/17 Magnesium Hydrox 2400MG/30Ml [Milk of Magnesia -] 30 ml PO ONCE PRN 11/27/17 Nicotine Patch [Nicoderm Patch -] 1 patch TD DAILY 11/27/17 Phenytoin Na Extended [Dilantin -] 300 mg PO Q8H 11/27/17 Sertraline HCl [Zoloft -] 50 mg PO DAILY 11/27/17 Sodium Phosphate,[place]-Dibasic [Fleet Enema] 133 ml RC DAILY PRN 11/27/17 Vitamin B Complex 1 each PO DAILY 11/27/17 levETIRAcetam [Keppra Oral Solution -] 1,000 mg PO BID 11/27/17 Apixaban [Eliquis] 5 mg PO BID #30 tablet 12/03/17 Metoprolol Succinate [Toprol XL -] 25 mg PO DAILY tab.sr.24h 12/03/17 Neurological Examination VSS afebrile Alert oriented x 0 He told me he is 66 and could not tell where he is, he says it is 1982 and it is february. EOMI, pupils reactive, no face asymmetry movnig all extremity sensation is normal ct head reviewed ASSESSMENT/PLAN 1. Transient slurring of speech, possible tia vs dialntin toxicity. I would hold dilantin and do mri of brain , and dialntin level everyday and would resume at a lower dose ( 200 mg po bid) once it is in therapeutic range 2. Dilantin toxicity , he was on high dose of dialntin 300 mg q8 hour, and I would hold and resume once level are below 20 Continue supportive care, Thanking you so much Marlon Dean MD
[2018-01-10 09:21] LABS: ALBUMIN 3.3 g/dl (3.4-5.0); ALK PHOS 149 U/L (45-117); ANION GAP 7 MMOL/L (8-16); BILIRUBIN,TOTAL 0.4 mg/dL (0.2-1); BLOOD UREA NITROGEN 6 mg/dL (7-18); CALCIUM 9.2 mg/dL (8.5-10.1); CHLORIDE 108 mmol/L (98-107); CO2 28 mmol/L (21-32); CREATININE 0.6 mg/dL (0.55-1.3); GLUCOSE,RANDOM 112 mg/dL (74-106); POTASSIUM 4.1 mmol/L (3.5-5.1); SGOT/AST 23 U/L (15-37); SGPT/ALT 19 U/L (13-61); SODIUM 143 mmol/L (136-145); TOT PROT 7.1 g/dl (6.4-8.2)
[2018-01-10] MEDS ORDERED: FLU VACCINE QUAD 60 MCG/0.5 ML (MDV 18-19) IM ONE (10:00)
--- NOTE | 2018-01-10 10:04 | PN ---
Progress Note (short form) - Note Progress Note: pt seen/ examined awake/ comfortable speech still slurred dilantin level high -- held neurology consult noted/ discussed with Dr. Bishop today s/s kim-- recommended dysphagia / puree diet Vital Signs Temp 98.9 F 01/10/18 05:00 Pulse 79 01/10/18 05:00 Resp 20 01/10/18 05:00 BP 122/77 01/10/18 05:00 Pulse Ox 98 01/10/18 03:08 Intake & Output 01/09/18 01/09/18 01/10/18 11:59 23:59 11:59 Intake Total 500 Balance 500 Weight 138 lb 138 lb Intake: IV 400 NS+20 MEQ KCL - 20 meq In 400 1,000 ml @ 100 mls/hr IV ASDIR REPLACED BY [facility] Rx#: [id number] IVPB 100 Other: Voiding Method Diaper Height 5 ft 8 in 5 ft 8 in Body Mass Index (BMI) 20.9 20.9 Active Medications Acetaminophen (Tylenol -) 1,000 mg PO Q8H PRN PRN Reason: FEVER Apixaban (Eliquis -) 5 mg PO BID REPLACED BY [facility] Last Admin: 01/09/18 22:35 Dose: Not Given Bupropion HCl (Wellbutrin Xl -) 300 mg PO DAILY REPLACED BY [facility] Dorzolamide HCl (Trusopt 2%) 1 drop OU BID REPLACED BY [facility] Last Admin: 01/09/18 22:36 Dose: Not Given Folic Acid (Folic Acid -) 1 mg PO DAILY REPLACED BY [facility] Potassium Chloride/Sodium Chloride (Ns+20 Meq Kcl -) 20 meq in 1,000 mls @ 100 mls/hr IV ASDIR REPLACED BY [facility] Last Admin: 01/09/18 20:13 Dose: 100 mls/hr Influenza Virus Vaccine Quadrival (Flulaval Quad [id number]) 60 mcg IM .ONCE ONE Stop: 01/10/18 10:01 Latanoprost (Xalatan 0.005% Eye Drops -) 1 drop OU HS REPLACED BY [facility] Last Admin: 01/09/18 22:36 Dose: Not Given Levetiracetam (Keppra Injection -) 1,000 mg IVPB BID REPLACED BY [facility] Last Admin: 01/09/18 22:34 Dose: 1,000 mg Metoprolol Succinate (Toprol Xl -) 25 mg PO DAILY REPLACED BY [facility] Multivitamins (Total B With C -) 1 each PO DAILY REPLACED BY [facility] Nicotine (Nicoderm Patch -) 14 mg TD DAILY REPLACED BY [facility] Sertraline HCl (Zoloft -) 50 mg PO DAILY REPLACED BY [facility] Timolol Maleate (Timoptic 0.5%) 1 drop OU BID ESTEFANIA Last Admin: 01/09/18 22:36 Dose: Not Given CBC, BMP 01/10/18 05:30 01/10/18 05:30 Physical Examination Constitutional: Yes: No Distress. comfortable Eyes: Yes: Conjunctiva Clear, PERRL Neck: Yes: Supple. no jvd Cardiovascular: Yes: Regular Rate and Rhythm Respiratory: Yes: CTA Bilaterally Gastrointestinal: Yes: Soft/ non tender Edema: No Neurological: Yes: Alert, Cran Nerves II-XII Intact, Dysarthria (power 5/5 - in all extremities no gaze), Other Imaging - Results Chest X-ray: Report Reviewed Cat Scan: Report Reviewed EKG: Report Reviewed Assessment/Plan Monitor on tele Dilantin held-- [employer] dilantin toxicity monitor levels mri also ordered -- contiue other meds dysphagia diet continue mild hydration today will follow discussed with nursing staff also Problem List - Problems (1) Nicotine dependence Code(s): F17.200 - NICOTINE DEPENDENCE, UNSPECIFIED, UNCOMPLICATED (2) Stroke Code(s): I63.9 - CEREBRAL INFARCTION, UNSPECIFIED Qualifiers: Laterality of affected vessel: unspecified (3) Dementia Code(s): F03.90 - UNSPECIFIED DEMENTIA WITHOUT BEHAVIORAL DISTURBANCE (4) Pulmonary embolism Code(s): I26.99 - OTHER PULMONARY EMBOLISM WITHOUT ACUTE COR PULMONALE (5) Schizoaffective disorder Code(s): F25.9 - SCHIZOAFFECTIVE DISORDER, UNSPECIFIED (6) Seizure disorder Code(s): G40.909 - EPILEPSY, UNSP, NOT INTRACTABLE, WITHOUT STATUS EPILEPTICUS (7) Dilantin toxicity Code(s): T42.0X1A - POISONING BY HYDANTOIN DERIVATIVES, ACCIDENTAL, INIT
--- NOTE | 2018-01-10 10:24 | CONSULT ---
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 connected speech is disordered) - Speech Production Dysarthria: Yes: Flaccid Able to Make Needs Known: Yes: Moderately Impaired Intelligibility: Yes: Moderately Impaired ( connected speech is disordered) - Speech Characteristics Voice Loudness: Normal Voice Pitch: Yes: Normal Voice Phonatory-based Quality: Yes: Normal Speech Pattern: Impaired Speech Clarity: < 75% Nasal Resonance: Normal Articulation: Yes: Imprecise Dysfluency: Yes: Tonic Rate of Speech: Too Fast Voice, Other Observations: Yes: Mouth Breathing - Language/Auditory Comprehension Follows: Yes: 1 Stage Simple Commands (WFL), 2 Stage Simple Commands (WFL) Observation: Able to respond to yes/no queries: Yes, Yes/No Confusion: No, Comprehends Conversational Speech: Yes, Benefits from Slow Speech: Yes, Benefits from Repetiton: Yes, Benefits from Increased Volume of Speech: No - Language/Verbal Expression Able to Respond to Simple Queries: Yes: Moderately Impaired Able to Communicate Wants and Needs: Yes: Moderately Impaired Functional Communication Status: Yes: Moderately Impaired Aware of Errors: No Attempts to Correct Errors: No Use of Gestures: Yes Written Expression: Not examined Oral Expression: reduced Reading Comprehension: Not examined Calculations: Not examined Attention: Yes: Minimal Impairment - Memory/Perception FCI Memory: Yes: Moderately Impaired Short Term Memory: Yes: Mildly Impaired - Swallow Evaluation/Bedside Assessment Current Nutritional Intake: NPO Oral Secretions: Yes: WFL Tracheostomy Present: No Patient on Ventilator: No Dentition: Yes: Missing Teeth (front incisors top and bottom) Facial Symmetry at Rest: Symmetrical Facial Symmetry on Retraction: Symmetrical Facial Movement: Controlled Sensation: Normal Facial Comment: WFL for swallowing purposes Jaw Position: Open at Rest Against Resistance Opening: Normal Against Resistance Closing: Normal Pucker Lips: Normal Lips, Comment: WFL for swallowing purposes Lingual Movement: Reduced Tip Depression, Reduced Tip Elevation, Reduced Lt Lateralization, Reduced Rt Lateralization Lingual Speed of Movement: Reduced Lingual Movement Strgth Against Opposition: Normal Lingual Movement Characteristics: Normal Lingual Comment: WFL for swallowing purposes Soft Palate Description: Normal Color Hard Palate Description: Normal Color Gag Reflex: Weak Bite Reflex: Present Velopharyngeal Movement: Normal Laryngeal Elevation: WFL Laryngeal Movement: Able to Palpate Needs Assistance: Yes Rate of Intake: WFL Bolus Size: WFL Chewing: Impaired (secondary to dental status) Oral Prep Time: WFL A-P Transit: WFL Timing of Swallow: WFL Odynophagia: Oral Coughing/Throat Clear: No Change in Voice: No Other Findings/Remarks: 72 yo male seen at bedside for swallow eval to r/o dysphagia. Pt is verbal with reduced intelligibility, A&Ox2, cooperative. Admitted to [facility] with slurred speech. Medical history: recent PE, dementia, Schizophrenia, SzD. Possible stroke?? Vocal quality is reduced, with weak airway protection. Current diet NPO Pt given po trials of pureed and soft solids with total assistance revealed, good acceptance, reduced mastication with soft, adequate bolus formation and transport. Pharyngeal swallow appears timely with no cough or changes in respiration after the swallow. Thin liquids trials via cup and straw were unremarkable for aspiration at bedside. Recommendations - Speech Evaluation, Impression/Plan Impression: Pt presents with reduced intelligibility secondary to possible stroke. Cognition for recent and past events are also reduced. Pt presents with mild dysphagia for solids secondary to dental status. Able to tolerate pureed and mech soft solids with thin liquids with s/s of aspiration at bedside. Group Home Goals: tolerate the least restrictive diet without s/s aspiration. Short Term Goals: tolerate mech soft solids and thin via without s/s of aspiration. - Dysphagia Impressions/Plan Swallowing Skills: Impaired Dysphagia Impressions: Moderate Impairment, Risk of Aspiration *Silent aspiration: cannot be R/O at bedside Dysphagia Treatment Plan: Trial Feedings (pureed and mech soft with thin liquids.), Safe Rate, 1/2 tsp. at a time, Elevate HOB during feed, Other ( monitor pulmonary status and nutritional intake.) Dysphagia Evaluation Summary: Trial mech soft solids with thin liquids as tolerated. Observe standard aspiration precaution. Crush meds. Results given verbal to gas charger and pcp. [employer] to follow up for diet tolerance. - Recommendations Diet Consistency: Mechanical Soft Medication Administration: Crushed with applesauce Liquids: Thin Liquids
[2018-01-10] MEDS ORDERED: PT OWN MED DRAWER 7, Y5N ONE ×2 (10:51→22:13)
[2018-01-10] MEDS: SERTRALINE HCL 50 MG TABLET (FP) PO SCH (10:54)
[2018-01-10] MEDS: metoPROLOL SUCCINATE 25 MG TAB.SR.24H (FP) PO SCH (10:54)
[2018-01-10] MEDS: FOLIC ACID 1 MG TABLET (FP) PO SCH (10:54)
[2018-01-10] MEDS: levETIRAcetam 500 MG/5 ML INJECTION VIAL IVPB SCH ×2 (10:57→22:16)
[2018-01-10] MEDS: TIMOLOL 0.5% OPHTHALMIC SOL 5 ML BOTTLE OU SCH ×2 (10:57→22:16)
[2018-01-10] MEDS: NICOTINE 14 MG/24 HOURS TOPICAL PATCH TD SCH (10:57)
[2018-01-10] MEDS: DORZOLAMIDE 2% HCL OPHTHALMIC SOLUTION 10 ML BOTTLE OU SCH ×2 (10:58→22:16)
--- NOTE | 2018-01-10 11:05 | CON.CARD ---
Cardiology Consult (text) - Consultation Consultation Note: Chief Complaint: slurred speech History of Present Illness: 72 yo M NH resident sent for slurred speech, ams. Pt unable to provide hx due to confusion, slurred speech. Here for likely cva. Recent admit for PE/dvt, has been on AC. 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: Yes: Dementia, Seizure Cardio/Vascular: Yes: Other (Peripheral vascular disease.) - Alcohol/Substance Use Hx Alcohol Use: No - Smoking History Smoking history: Never smoked Have you smoked in the past 12 months: No Home Medications - Allergies Allergies/Adverse Reactions: Allergies Allergy/AdvReac Type Severity Reaction Status Date / Time No Known Allergies Allergy Verified 01/09/18 12:37 - Home Medication No Known Allergies Allergy (Verified 01/09/18 12:37) Home Medications Medication Instructions Recorded Acetaminophen 1,000 mg PO Q8H PRN 11/27/17 Bupropion HCl [Wellbutrin Xl] 300 mg PO DAILY 11/27/17 Dorzolamide/Timolol/Pf [Cosopt Pf 1 each OP BID 11/27/17 Eye Drops] Folic Acid 1 mg PO DAILY 11/27/17 Gabapentin [Neurontin -] 300 mg PO Q8H 11/27/17 Latanoprost 0.005% Eye Drops 1 drop OU HS 11/27/17 [Xalatan 0.005% Eye Drops -] Magnesium Hydrox 2400MG/30Ml [Milk 30 ml PO ONCE PRN 11/27/17 of Magnesia -] Nicotine Patch [Nicoderm Patch -] 1 patch TD DAILY 11/27/17 Phenytoin Na Extended [Dilantin -] 300 mg PO Q8H 11/27/17 Sertraline HCl [Zoloft -] 50 mg PO DAILY 11/27/17 Sodium Phosphate,[place]-Dibasic 133 ml RC DAILY PRN 11/27/17 [Fleet Enema] Vitamin B Complex 1 each PO DAILY 11/27/17 levETIRAcetam [Keppra Oral 1,000 mg PO BID 11/27/17 Solution -] Apixaban [Eliquis] 5 mg PO BID #30 tablet 12/03/17 Metoprolol Succinate [Toprol XL -] 25 mg PO DAILY tab.sr.24h 12/03/17 Family Disease History - Family Disease History Family History: Denies (no known cmp) Review of Systems - Review of Systems unable to obtain 2/2 ams Vital Signs Vital Signs Period Temp Pulse Resp BP Sys/Chacon Pulse Ox Last 24 Hr 98.2 F-98.9 F 69-84 17-20 116-142/71-80 96-100 Constitutional: Yes: Well Nourished, No Distress Eyes: No: Sclera Icterus HENT: No: Nasal Congestion Respiratory: Yes: CTA Bilaterally. No: Accessory Muscle Use, Rales, Wheezes Gastrointestinal: Yes: Normal Bowel Sounds. No: Distention, Hepatomegaly, Palpable Mass, Tenderness Cardiovascular: Yes: Regular Rate and Rhythm JVD: No Carotid Bruit: No PMI: Non-Displaced Heart Sounds: Yes: S1, S2. No: Gallop Murmur: No: Systolic Murmur, Diastolic Murmur Extremities: No: Cool, Cyanosis Edema: No Peripheral Pulses: 2+ Left Carotid, 2+ Right Carotid, 2+ Left Doralis Pedis, 2+ Right Dorsalis Pedis Integumentary: No: Jaundice diaphoresis Neurological: confused,slurred speech Psychiatric: No: Agitated - Other Data Labs, Other Data: Laboratory Last Values WBC 7.3 K/mm3 (4.0-10.0) 01/10/18 05:30 RBC 4.41 M/mm3 (4.00-5.60) 01/10/18 05:30 Hgb 12.5 GM/dL (11.7-16.9) 01/10/18 05:30 Hct 38.9 % (35.4-49) 01/10/18 05:30 MCV 88.1 fl (80-96) 01/10/18 05:30 MCH 28.4 pg (25.7-33.7) 01/10/18 05:30 MCHC 32.3 g/dl (32.0-35.9) 01/10/18 05:30 RDW 14.5 % (11.9-15.9) 01/10/18 05:30 Plt Count 172 K/MM3 (134-434) D 01/10/18 05:30 MPV 10.3 fl (7.5-11.1) D 01/10/18 05:30 Absolute Neuts (auto) 3.4 K/mm3 (1.5-8.0) 01/10/18 05:30 Neutrophils % 45.7 % (42.8-82.8) 01/10/18 05:30 Lymphocytes % 37.9 % (8-40) 01/10/18 05:30 Monocytes % 8.6 % (3.8-10.2) 01/10/18 05:30 Eosinophils % 7.1 % (0-4.5) H 01/10/18 05:30 Basophils % 0.7 % (0-2.0) 01/10/18 05:30 Nucleated RBC % 0 % (0-0) 01/10/18 05:30 PT with INR 15.20 SEC (9.7-13.0) H 01/09/18 13:41 INR 1.28 (0.83-1.09) H 01/09/18 13:41 Sodium 143 mmol/L (136-145) 01/10/18 05:30 Potassium 4.1 mmol/L (3.5-5.1) 01/10/18 05:30 Chloride 108 mmol/L (98-107) H 01/10/18 05:30 Carbon Dioxide 28 mmol/L (21-32) 01/10/18 05:30 Anion Gap 7 MMOL/L (8-16) L 01/10/18 05:30 BUN 6 mg/dL (7-18) L 01/10/18 05:30 Creatinine 0.6 mg/dL (0.55-1.3) 01/10/18 05:30 Creat Clearance w eGFR > 60 (>60) 01/10/18 05:30 POC Glucometer 138.33177 UNITS (80-120) 01/09/18 12:26 Random Glucose 112 mg/dL (74-106) H 01/10/18 05:30 Hemoglobin A1c % 5.5 % (4.2-6.3) 01/10/18 05:30 Calcium 9.2 mg/dL (8.5-10.1) 01/10/18 05:30 Phosphorus 2.1 mg/dL (2.5-4.9) L 01/09/18 13:41 Magnesium 2.2 mg/dL (1.8-2.4) 01/09/18 13:41 Total Bilirubin 0.4 mg/dL (0.2-1) 01/10/18 05:30 AST 23 U/L (15-37) 01/10/18 05:30 ALT 19 U/L (13-61) 01/10/18 05:30 Alkaline Phosphatase 149 U/L (45-117) H 01/10/18 05:30 Creatine Kinase 95 IU/L (26-308) 01/09/18 13:41 Troponin I < 0.02 ng/ml (0.00-0.05) 01/09/18 13:41 Total Protein 7.1 g/dl (6.4-8.2) 01/10/18 05:30 Albumin 3.3 g/dl (3.4-5.0) L 01/10/18 05:30 Triglycerides 90 mg/dL (0-150) 01/09/18 13:41 Cholesterol 146 mg/dL (50-200) 01/09/18 13:41 Total LDL Cholesterol 74 mg/dL (5-100) 01/09/18 13:41 HDL Cholesterol 69 mg/dL (40-60) H 01/09/18 13:41 Urine Color Yellow 01/09/18 18:15 Urine Appearance Clear 01/09/18 18:15 Urine pH 6.0 (5.0-8.0) 01/09/18 18:15 Ur Specific [place] 1.014 (1.001-1.035) 01/09/18 18:15 Urine Protein Negative (NEGATIVE) 01/09/18 18:15 Urine Glucose (UA) Negative (NEGATIVE) 01/09/18 18:15 Urine Ketones Negative (NEGATIVE) 01/09/18 18:15 Urine Blood Negative (NEGATIVE) 01/09/18 18:15 Urine Nitrite Negative (NEGATIVE) 01/09/18 18:15 Urine Bilirubin Negative (<2.0 mg/dL) 01/09/18 18:15 Urine Urobilinogen Negative mg/dL (0.2-1.0) 01/09/18 18:15 Ur Leukocyte Esterase 2+ (NEGATIVE) H 01/09/18 18:15 Urine WBC (Auto) 11 /hpf (3-5) 01/09/18 18:15 Urine RBC (Auto) <1 /hpf (0-3) 01/09/18 18:15 Ur Epithelial Cells Rare /HPF (FEW) 01/09/18 18:15 Phenytoin 49.8 ug/ml (10.0-20.0) H* 01/10/18 05:30 Blood Type B POSITIVE 01/09/18 21:25 Antibody Screen Negative 01/09/18 13:41 ecg: sr nl intervals no ischemic changes tele: sr echo 11/2017 lv nl size, function, RV severely dilated, flattened IV septum c/w RV pressure overload, Orozco's sign, RA mod to sev dilated, mild AI, mild MR , RVSP 43 mmHg cxr: clear lungs a/p: recent PE/dvt: -s/p intra-PA lytics and mechanical thrombectomy by IR -on ac with eliquis -echo shows RV enlargement and RV dysfunction c/w PE at that time-->will check updated echo now -possibly unprovoked event--duration of AC per heme atrial tachycardia: -seen on last admit 11/2017 -likely triggered by acute PE. -now in sinus, cont bb cva: -mri pending -neuro eval
[2018-01-10] MEDS: APIXABAN 5 MG TABLET PO SCH ×2 (14:20→22:16)
[2018-01-10] MEDS: VITAMIN B COMPLEX W/C COMBO TABLET (FP) PO SCH (14:21)
[2018-01-10] MEDS: LATANOPROST 0.005% OPHTH SOLN 2.5ML BOTTLE OU SCH (22:16)
[2018-01-11] MEDS ORDERED: PT OWN MED DRAWER 7, Y5N ONE (09:45)
--- NOTE | 2018-01-11 09:55 | PN ---
Progress Note (short form) - Note Progress Note: cc: slurred speech Current Medications Acetaminophen (Tylenol -) 1,000 mg PO Q8H PRN PRN Reason: FEVER Apixaban (Eliquis -) 5 mg PO BID [facility] Last Admin: 01/10/18 22:16 Dose: 5 mg Bupropion HCl (Wellbutrin Xl -) 300 mg PO DAILY [facility] Last Admin: 01/10/18 14:21 Dose: 300 mg Dorzolamide HCl (Trusopt 2%) 1 drop OU BID [facility] Last Admin: 01/10/18 22:16 Dose: 1 drop Folic Acid (Folic Acid -) 1 mg PO DAILY [facility] Last Admin: 01/10/18 10:54 Dose: 1 mg Potassium Chloride/Sodium Chloride (Ns+20 Meq Kcl -) 20 meq in 1,000 mls @ 100 mls/hr IV ASDIR [facility] Last Admin: 01/09/18 20:13 Dose: 100 mls/hr Latanoprost (Xalatan 0.005% Eye Drops -) 1 drop OU HS [facility] Last Admin: 01/10/18 22:16 Dose: 1 drop Levetiracetam (Keppra Injection -) 1,000 mg IVPB BID [facility] Last Admin: 01/10/18 22:16 Dose: 1,000 mg Metoprolol Succinate (Toprol Xl -) 25 mg PO DAILY [facility] Last Admin: 01/10/18 10:54 Dose: 25 mg Multivitamins (Total B With C -) 1 each PO DAILY [facility] Last Admin: 01/10/18 14:21 Dose: 1 each Nicotine (Nicoderm Patch -) 14 mg TD DAILY [facility] Last Admin: 01/10/18 10:57 Dose: 14 mg Sertraline HCl (Zoloft -) 50 mg PO DAILY [facility] Last Admin: 01/10/18 10:54 Dose: 50 mg Timolol Maleate (Timoptic 0.5%) 1 drop OU BID [facility] Last Admin: 01/10/18 22:16 Dose: 1 drop Vital Signs Vital Signs Period Temp Pulse Resp BP Sys/Chacon Pulse Ox Last 24 Hr 98.2 F-98.6 F 68-78 18-20 119-144/57-77 98-98 Constitutional: Yes: Well Nourished, No Distress Eyes: No: Sclera Icterus HENT: No: Nasal Congestion Respiratory: Yes: CTA Bilaterally. No: Accessory Muscle Use, Rales, Wheezes Gastrointestinal: Yes: Normal Bowel Sounds. No: Distention, Hepatomegaly, Palpable Mass, Tenderness Cardiovascular: Yes: Regular Rate and Rhythm JVD: No Carotid Bruit: No PMI: Non-Displaced Heart Sounds: Yes: S1, S2. No: Gallop Murmur: No: Systolic Murmur, Diastolic Murmur Extremities: No: Cool, Cyanosis Edema: No Peripheral Pulses: 2+ Left Carotid, 2+ Right Carotid, 2+ Left Doralis Pedis, 2+ Right Dorsalis Pedis Integumentary: No: Jaundice diaphoresis Neurological: confused,slurred speech Psychiatric: No: Agitated ecg: sr nl intervals no ischemic changes tele: sinus echo 11/2017 lv nl size, function, RV severely dilated, flattened IV septum c/w RV pressure overload, Orozco's sign, RA mod to sev dilated, mild AI, mild MR , RVSP 43 mmHg cxr: clear lungs a/p: recent PE/dvt: -s/p intra-PA lytics and mechanical thrombectomy by IR -on ac with eliquis -echo shows RV enlargement and RV dysfunction c/w PE at that time-->repeat echo pending -possibly unprovoked event--duration of AC per heme atrial tachycardia: -seen on last admit 11/2017 -likely triggered by acute PE. -now in sinus, cont bb cva: -mri pending -neuro eval - on tele
[2018-01-11] MEDS: FOLIC ACID 1 MG TABLET (FP) PO SCH (10:28)
[2018-01-11] MEDS: APIXABAN 5 MG TABLET PO SCH ×2 (10:28→22:07)
[2018-01-11] MEDS: levETIRAcetam 500 MG/5 ML INJECTION VIAL IVPB SCH ×2 (10:29→22:08)
[2018-01-11] MEDS: metoPROLOL SUCCINATE 25 MG TAB.SR.24H (FP) PO SCH (10:29)
[2018-01-11] MEDS: TIMOLOL 0.5% OPHTHALMIC SOL 5 ML BOTTLE OU SCH ×2 (10:30→22:11)
[2018-01-11] MEDS: DORZOLAMIDE 2% HCL OPHTHALMIC SOLUTION 10 ML BOTTLE OU SCH ×2 (10:30→22:11)
[2018-01-11] MEDS: SERTRALINE HCL 50 MG TABLET (FP) PO SCH (10:34)
[2018-01-11] MEDS: NICOTINE 14 MG/24 HOURS TOPICAL PATCH TD SCH (10:48)
--- NOTE | 2018-01-11 10:48 | EKG ---
Test Reason : Blood Pressure : / mmHG Vent. Rate : 069 BPM Atrial Rate : 069 BPM P-R Int : 168 ms QRS Dur : 070 ms QT Int : 402 ms P-R-T Axes : 039 -16 035 degrees QTc Int : 430 ms NORMAL SINUS RHYTHM NORMAL ECG WHEN COMPARED WITH ECG OF 28-NOV-2017 08:48, PREMATURE ATRIAL COMPLEXES ARE NO LONGER PRESENT Confirmed by Matt Veronica MD ([id number]) on 01/11/2018 10:47:51 AM Referred By: Confirmed By:Matt Veronica MD
[2018-01-11] MEDS: VITAMIN B COMPLEX W/C COMBO TABLET (FP) PO SCH (10:49)
--- NOTE | 2018-01-11 11:52 | PN ---
Progress Note, STRAW [employer]ER - Note Progress Note: Per neurology:ct head reviewed 1. Transient slurring of speech, possible tia vs dialntin toxicity. I would hold dilantin and do mri of brain , and dialntin level everyday and would resume at a lower dose ( 200 mg po bid) once it is in therapeutic range 2. Dilantin toxicity , he was on high dose of dialntin 300 mg q8 hour, and I would hold and resume once level are below 20 Pt seen 01/10/18 by Speech Pathology:Recommendations Diet Consistency: Mechanical Soft Medication Administration: Crushed with applesauce Liquids: Thin Liquids Pt on puree/nectar thick diet at this time. Pt is verbal, reports that he is at "[facility] for a seizure." Not oriented to time. Impaired intelligibility with rapid, imprecise articulation with hypernasality. Slight right facial? Swallow seems brisk. Impaired mastication, with missing dentition and reports biting his lips bilaterally. Pt was on a reg diet at [facility]. REC: Trial of Dys chopped/thin liquid/Ensure.
--- NOTE | 2018-01-11 13:16 | PN ---
Progress Note (short form) - Note Progress Note: no complaints Vital Signs - 24 hr 01/10/18 01/10/18 01/10/18 19:00 20:39 23:00 Temperature Pulse Rate Respiratory 20 19 20 Rate Blood Pressure O2 Sat by Pulse 98 98 98 Oximetry (%) 01/11/18 01/11/18 01/11/18 02:00 03:00 05:29 Temperature 98.3 F 98.6 F Pulse Rate 75 72 Respiratory 20 20 20 Rate Blood Pressure 119/57 L 124/74 O2 Sat by Pulse 98 Oximetry (%) 01/11/18 01/11/18 01/11/18 09:00 09:30 14:00 Temperature 98.5 F Pulse Rate 78 72 Respiratory 18 18 Rate Blood Pressure 144/77 131/79 O2 Sat by Pulse 98 Oximetry (%) Current Medications Generic Name Dose Route Start Last Admin Trade Name Freq PRN Reason Stop Dose Admin Acetaminophen 1,000 mg 01/09/18 15:49 Tylenol - PO Q8H PRN FEVER Apixaban 5 mg 01/09/18 22:00 01/11/18 10:28 Eliquis - PO 5 mg BID ESTEFANIA Administration Bupropion HCl 300 mg 01/10/18 10:00 01/11/18 10:35 Wellbutrin Xl - PO 300 mg DAILY ESTEFANIA Administration Dorzolamide HCl 1 drop 01/09/18 22:00 01/11/18 10:30 Trusopt 2% OU 1 drop BID ESTEFANIA Administration Folic Acid 1 mg 01/10/18 10:00 01/11/18 10:28 Folic Acid - PO 1 mg DAILY ESTEFANIA Administration Sodium Chloride 1,000 mls @ 83 mls/hr 01/11/18 13:30 01/11/18 13:35 1/2 Normal Saline IV 83 mls/hr ASDIR ESTEFANIA Administration Latanoprost 1 drop 01/09/18 22:00 01/10/18 22:16 Xalatan 0.005% Eye Drops - OU 1 drop HS ESTEFANIA Administration Levetiracetam 1,000 mg 01/09/18 22:00 01/11/18 10:29 Keppra Injection - IVPB 1,000 mg BID ESTEFANIA Administration Metoprolol Succinate 25 mg 01/10/18 10:00 01/11/18 10:29 Toprol Xl - PO 25 mg DAILY ESTEFANIA Administration Multivitamins 1 each 01/10/18 10:00 01/11/18 10:49 Total B With C - PO 1 each DAILY ESTEFANIA Administration Nicotine 14 mg 01/10/18 10:00 01/11/18 10:48 Nicoderm Patch - TD 14 mg DAILY ESTEFANIA Administration Sertraline HCl 50 mg 01/10/18 10:00 01/11/18 10:34 Zoloft - PO 50 mg DAILY ESTEFANIA Administration Timolol Maleate 1 drop 01/09/18 22:00 01/11/18 10:30 Timoptic 0.5% OU 1 drop BID ESTEFANIA Administration Abnormal Lab Results 01/11/18 09:30 Phenytoin 48.0 H* Physical Examination Constitutional: Yes: No Distress. comfortable Eyes: Yes: Conjunctiva Clear, PERRL Neck: Yes: Supple. no jvd Cardiovascular: Yes: Regular Rate and Rhythm Respiratory: Yes: CTA Bilaterally Gastrointestinal: Yes: Soft/ non tender Edema: No Neurological: Yes: Alert, Cran Nerves II-XII Intact, Dysarthria (power 5/5 - in all extremities no gaze), Other Imaging - Results Chest X-ray: Report Reviewed Cat Scan: Report Reviewed EKG: Report Reviewed Assessment/Plan Monitor on tele Dilantin held-- [email or web address]+Times dilantin toxicity monitor levels mri also ordered -- contiue other meds dysphagia diet continue mild hydration today will follow discussed with nursing staff also Problem List - Problems (1) Dilantin toxicity Code(s): T42.0X1A - POISONING BY HYDANTOIN DERIVATIVES, ACCIDENTAL, INIT (2) DVT (deep venous thrombosis) Code(s): I82.409 - ACUTE EMBOLISM AND THOMBOS UNSP DEEP VN UNSP LOWER EXTREMITY (3) Dementia Code(s): F03.90 - UNSPECIFIED DEMENTIA WITHOUT BEHAVIORAL DISTURBANCE
[2018-01-11] MEDS: SODIUM CHLORIDE 0.45% 1,000 ML IV SCH (13:35)
--- NOTE | 2018-01-11 13:40 | ECHO ---
Name: SMITH HANDY Exam:Adult Echocardiogram Study Date: 01/11/2018 11:20 AM Age: 72 yrs Reason For Study: CVA Height: 68 in Weight: 138 lb BSA: 1.7 m2 MMode/2D Measurements & Calculations IVSd: 0.99 cm Ao root diam: 3.1 cm LVIDd: 4.3 cm LA dimension: 2.7 cm LVIDs: 2.9 cm LVPWd: 0.75 cm EDV(Teich): 81.6 ml TAPSE: 0.89 cm ESV(Teich): 33.3 ml RV S Melvin: 10.6 cm/sec Doppler Measurements & Calculations MV E max melvin: 48.4 cm/sec Ao V2 max: 112.1 cm/sec MV A max melvin: 68.6 cm/sec Ao max P.0 mmHg MV E/A: 0.71 LV V1 max P.8 mmHg MR max melvin: 365.9 cm/sec LV V1 max: 109.6 cm/sec MR max P.5 mmHg TR max melvin: 202.5 cm/sec Med Peak E' Melvin: 5.4 cm/sec TR max P.4 mmHg Med E/e': 9.0 Lat Peak E' Melvin: 3.2 cm/sec Lat E/e': 15.0 Procedure A complete two-dimensional transthoracic echocardiogram was performed (2D, M-mode, Doppler and color flow Doppler). Left Ventricle The left ventricular size, thickness and function are normal. Ejection Fraction = 65%. The transmitra l spectral Doppler flow pattern is suggestive of impaired LV relaxation. Right Ventricle The right ventricle is normal in size and function. Atria Normal left and right atrial size and function. Mitral Valve The mitral valve is grossly normal. There is mild mitral regurgitation. Tricuspid Valve The tricuspid valve is not well visualized, but is grossly normal. There is trace tricuspid regurgita tion. Right ventricular systolic pressure is 16.4 mmhg. Aortic Valve There is mild aortic sclerosis.;. Pulmonic Valve The pulmonic valve is not well visualized. Great Vessels The aortic root is not well visualized. Pericardium/Pleura There is no pericardial effusion. There is no pleural effusion. Interpretation Summary Compared to the prior study of 11/29/17 the RV function has improved and there is no evidence of pulmo nary hypertension. The left ventricular size, thickness and function are normal Ejection Fraction = 65%. The right ventricle is normal in size and function. There is mild mitral regurgitation. There is trace tricuspid regurgitation. Right ventricular systolic pressure is 16.4 mmhg. There is mild aortic sclerosis.; MD Matt Veronica 01/11/2018 01:40 PM
[2018-01-11] MEDS: LATANOPROST 0.005% OPHTH SOLN 2.5ML BOTTLE OU SCH (22:10)
--- NOTE | 2018-01-12 08:32 | PN ---
Progress Note (short form) - Note Progress Note: HPI 72 year old male , [facility] resident. He has history of schizophrenia, seizure, pe on eliquis. Patient had ct head and it was unmremarkable. His dialntin level was 49 and he was taking dilnatin 300 mg q8 hour. This is quite high dose. He do have history of dementia. He has been agitated here in hospital and has to be restrained as he was at risk of fall. He is back to baseline, he is confused but follow command and knows where he is Neurological Examination VSS afebrile Alert oriented x 2, knows who he is and where he is EOMI, pupils reactive, no face asymmetry movnig all extremity sensation is normal ct head reviewed dilantin level was 48 ASSESSMENT/PLAN 1. Transient slurring of speech, most likley dialntin toxicity yesterday level was 48, he is back to baseline. dilantin is on hold, would resume medication at lower dose,once level are below 20 Continue supportive care, Thanking you so much Marlon Dean MD
[2018-01-12] MEDS ORDERED: PT OWN MED DRAWER 7, Y5N ONE (08:51)
--- NOTE | 2018-01-12 09:06 | PN ---
Progress Note (short form) - Note Progress Note: no complaints being evaluated by swallow therapist pt moving all extremities Vital Signs - 24 hr 01/11/18 01/11/18 01/12/18 18:00 21:00 02:25 Temperature 98.1 F 98.3 F Pulse Rate 74 74 Respiratory 20 16 20 Rate Blood Pressure 115/76 134/74 O2 Sat by Pulse 98 Oximetry (%) 01/12/18 01/12/18 01/12/18 08:09 08:11 13:24 Temperature 98.2 F Pulse Rate 71 63 Respiratory 20 20 18 Rate Blood Pressure 139/75 117/73 O2 Sat by Pulse 98 Oximetry (%) Current Medications Generic Name Dose Route Start Last Admin Trade Name Freq PRN Reason Stop Dose Admin Acetaminophen 1,000 mg 01/09/18 15:49 Tylenol - PO Q8H PRN FEVER Apixaban 5 mg 01/09/18 22:00 01/12/18 09:18 Eliquis - PO 5 mg BID ESTEFANIA Administration Bupropion HCl 300 mg 01/10/18 10:00 01/12/18 09:18 Wellbutrin Xl - PO 300 mg DAILY ESTEFANIA Administration Dorzolamide HCl 1 drop 01/09/18 22:00 01/12/18 09:18 Trusopt 2% OU 1 drop BID ESTEFANIA Administration Folic Acid 1 mg 01/10/18 10:00 01/12/18 09:17 Folic Acid - PO 1 mg DAILY ESTEFANIA Administration Sodium Chloride 1,000 mls @ 83 mls/hr 01/11/18 13:30 01/12/18 13:26 1/2 Normal Saline IV 83 mls/hr ASDIR ESTEFANIA Administration Latanoprost 1 drop 01/09/18 22:00 01/11/18 22:10 Xalatan 0.005% Eye Drops - OU 1 drop HS ESTEFANIA Administration Levetiracetam 1,000 mg 01/12/18 10:15 01/12/18 10:41 Keppra - PO 1,000 mg BID ESTEFANIA Administration Metoprolol Succinate 25 mg 01/10/18 10:00 01/12/18 09:17 Toprol Xl - PO 25 mg DAILY ESTEFANIA Administration Multivitamins 1 each 01/10/18 10:00 01/12/18 09:18 Total B With C - PO 1 each DAILY ESTEFANIA Administration Nicotine 14 mg 01/10/18 10:00 01/12/18 09:17 Nicoderm Patch - TD 14 mg DAILY ESTEFANIA Administration Sertraline HCl 50 mg 01/10/18 10:00 01/12/18 09:17 Zoloft - PO 50 mg DAILY ESTEFANIA Administration Timolol Maleate 1 drop 01/09/18 22:00 01/12/18 09:18 Timoptic 0.5% OU 1 drop BID ESTEFANIA Administration Laboratory Results - last 24 hr 01/12/18 10:55 Phenytoin 37.9 H* Physical Examination Constitutional: Yes: No Distress. comfortable Eyes: Yes: Conjunctiva Clear, PERRL Neck: Yes: Supple. no jvd Cardiovascular: Yes: Regular Rate and Rhythm Respiratory: Yes: CTA Bilaterally Gastrointestinal: Yes: Soft/ non tender Edema: No Neurological: Yes: Alert, Cran Nerves II-XII Intact, Dysarthria (power 5/5 - in all extremities no gaze), Other Imaging - Results Chest X-ray: Report Reviewed Cat Scan: Report Reviewed EKG: Report Reviewed Assessment/Plan Monitor on tele Dilantin held-- likely dilantin toxicity--> levels decreasing continue with iv fluids monitor levels mri also ordered -- pending contiue other meds dysphagia diet will follow discussed with nursing staff also Problem List - Problems (1) Dilantin toxicity Code(s): T42.0X1A - POISONING BY HYDANTOIN DERIVATIVES, ACCIDENTAL, INIT (2) DVT (deep venous thrombosis) Code(s): I82.409 - ACUTE EMBOLISM AND THOMBOS UNSP DEEP VN UNSP LOWER EXTREMITY (3) Dementia Code(s): F03.90 - UNSPECIFIED DEMENTIA WITHOUT BEHAVIORAL DISTURBANCE
[2018-01-12] MEDS: FOLIC ACID 1 MG TABLET (FP) PO SCH (09:17)
[2018-01-12] MEDS: NICOTINE 14 MG/24 HOURS TOPICAL PATCH TD SCH (09:17)
[2018-01-12] MEDS: SERTRALINE HCL 50 MG TABLET (FP) PO SCH (09:17)
[2018-01-12] MEDS: metoPROLOL SUCCINATE 25 MG TAB.SR.24H (FP) PO SCH (09:17)
[2018-01-12] MEDS: VITAMIN B COMPLEX W/C COMBO TABLET (FP) PO SCH (09:18)
[2018-01-12] MEDS: DORZOLAMIDE 2% HCL OPHTHALMIC SOLUTION 10 ML BOTTLE OU SCH ×2 (09:18→22:57)
[2018-01-12] MEDS: TIMOLOL 0.5% OPHTHALMIC SOL 5 ML BOTTLE OU SCH ×2 (09:18→22:59)
[2018-01-12] MEDS: APIXABAN 5 MG TABLET PO SCH ×2 (09:18→22:14)
--- NOTE | 2018-01-12 09:32 | PN ---
Progress Note (short form) - Note Progress Note: cc: slurred speech s: no chest pain, palps, dizzy, lightheadedness. Current Medications Acetaminophen (Tylenol -) 1,000 mg PO Q8H PRN PRN Reason: FEVER Apixaban (Eliquis -) 5 mg PO BID [facility] Last Admin: 01/10/18 22:16 Dose: 5 mg Bupropion HCl (Wellbutrin Xl -) 300 mg PO DAILY [facility] Last Admin: 01/10/18 14:21 Dose: 300 mg Dorzolamide HCl (Trusopt 2%) 1 drop OU BID [facility] Last Admin: 01/10/18 22:16 Dose: 1 drop Folic Acid (Folic Acid -) 1 mg PO DAILY [facility] Last Admin: 01/10/18 10:54 Dose: 1 mg Potassium Chloride/Sodium Chloride (Ns+20 Meq Kcl -) 20 meq in 1,000 mls @ 100 mls/hr IV ASDIR [facility] Last Admin: 01/09/18 20:13 Dose: 100 mls/hr Latanoprost (Xalatan 0.005% Eye Drops -) 1 drop OU HS [facility] Last Admin: 01/10/18 22:16 Dose: 1 drop Levetiracetam (Keppra Injection -) 1,000 mg IVPB BID [facility] Last Admin: 01/10/18 22:16 Dose: 1,000 mg Metoprolol Succinate (Toprol Xl -) 25 mg PO DAILY [facility] Last Admin: 01/10/18 10:54 Dose: 25 mg Multivitamins (Total B With C -) 1 each PO DAILY [facility] Last Admin: 01/10/18 14:21 Dose: 1 each Nicotine (Nicoderm Patch -) 14 mg TD DAILY [facility] Last Admin: 01/10/18 10:57 Dose: 14 mg Sertraline HCl (Zoloft -) 50 mg PO DAILY [facility] Last Admin: 01/10/18 10:54 Dose: 50 mg Timolol Maleate (Timoptic 0.5%) 1 drop OU BID [facility] Last Admin: 01/10/18 22:16 Dose: 1 drop Vital Signs Vital Signs Period Temp Pulse Resp BP Sys/Chacon Pulse Ox Last 24 Hr 98.2 F-98.6 F 68-78 18-20 119-144/57-77 98-98 Constitutional: Yes: Well Nourished, No Distress Eyes: No: Sclera Icterus HENT: No: Nasal Congestion Respiratory: Yes: CTA Bilaterally. No: Accessory Muscle Use, Rales, Wheezes Gastrointestinal: Yes: Normal Bowel Sounds. No: Distention, Hepatomegaly, Palpable Mass, Tenderness Cardiovascular: Yes: Regular Rate and Rhythm JVD: No Carotid Bruit: No PMI: Non-Displaced Heart Sounds: Yes: S1, S2. No: Gallop Murmur: No: Systolic Murmur, Diastolic Murmur Extremities: No: Cool, Cyanosis Edema: No Peripheral Pulses: 2+ Left Carotid, 2+ Right Carotid, 2+ Left Doralis Pedis, 2+ Right Dorsalis Pedis Integumentary: No: Jaundice diaphoresis Neurological: confused,slurred speech Psychiatric: No: Agitated ecg: sr nl intervals no ischemic changes tele: sinus echo 11/2017 lv nl size, function, RV severely dilated, flattened IV septum c/w RV pressure overload, Orozco's sign, RA mod to sev dilated, mild AI, mild MR , RVSP 43 mmHg echo 01/2018 RV function improved, no pulm HTN, EF 65%, mild MR, tr TR, RVSP 16 mmHg, mild ao sclerosis cxr: clear lungs a/p: recent PE/dvt: -s/p intra-PA lytics and mechanical thrombectomy by IR -on ac with eliquis -echo at time of PE showed RV enlargement and RV dysfunction c/w PE at that time, resolved on repeat echo -possibly unprovoked event--duration of AC per heme atrial tachycardia: -seen on last admit 11/2017 -likely triggered by acute PE. -now in sinus, cont bb cva: -mri pending -neuro eval - on tele
[2018-01-12] MEDS: levETIRAcetam 500 MG TABLET (FP) PO SCH ×3 (10:40→22:14)
--- NOTE | 2018-01-12 11:22 | PN ---
Progress Note, [employer] - Note Progress Note: Selected Entries 01/11/18 01/11/18 01/11/18 02:00 05:29 10:32 Breakfast 50% Supper Temperature 98.3 F 98.6 F 01/11/18 01/11/18 01/12/18 14:00 18:00 02:25 Breakfast Supper 75% Temperature 98.5 F 98.1 F 98.3 F 01/12/18 08:11 Breakfast Supper Temperature 98.2 F Laboratory Tests 01/10/18 05:30 WBC 7.3 Swallow seems brisk. Impaired mastication, with missing dentition and reports biting his lips bilaterally. Pt was on a reg diet at [facility]. Pt on puree/nectar thick liquids. Right facial (baseline) with pooling of oatmeal in right buccal cavity trialed by nursing and corn flakes trialed during my reassessment. Impaired sensaation on right. Overtly tolerated water, however, will continue nectar thick liquid for now due to high Dilantin level. Silent apiration can not be r/o at baseline. Continue puree/nectar thick liquids.
[2018-01-12] MEDS: SODIUM CHLORIDE 0.45% 1,000 ML IV SCH (13:26)
[2018-01-12] MEDS: LATANOPROST 0.005% OPHTH SOLN 2.5ML BOTTLE OU SCH (23:01)
--- NOTE | 2018-01-13 08:48 | PN ---
Progress Note (short form) - Note Progress Note: 72 year old male , [place] resident. He has history of schizophrenia, seizure, PE on eliquis. Patient had CT head and it was unmremarkable. His initialdialntin level was 49 and he was taking dilnatin 300 mg q8 hour. This is quite high dose. He do have history of dementia. His dialntin level was 37 yesterday and had mri done and report pending. He is back to baseline, he is confused but follow command and knows where he is Neurological Examination VSS afebrile Alert oriented x 2, knows who he is and where he is EOMI, pupils reactive, no face asymmetry movnig all extremity sensation is normal ct head reviewed dilantin level yeserday is 37 ASSESSMENT/PLAN 1. Transient slurring of speech, most likley dialntin toxicity yesterday level was 37 . Plan: 1. would follow official mri report 2. continue to hold dilantin now , repeat level tomorrow Continue supportive care, Thanking you so much Marlon Dean MD
[2018-01-13] MEDS: SODIUM CHLORIDE 0.45% 1,000 ML IV SCH ×2 (09:06→11:40)
[2018-01-13] MEDS: metoPROLOL SUCCINATE 25 MG TAB.SR.24H (FP) PO SCH (09:08)
[2018-01-13] MEDS: APIXABAN 5 MG TABLET PO SCH ×3 (09:09→21:26)
[2018-01-13] MEDS: FOLIC ACID 1 MG TABLET (FP) PO SCH (09:09)
[2018-01-13] MEDS: levETIRAcetam 500 MG TABLET (FP) PO SCH ×3 (09:09→21:26)
[2018-01-13] MEDS: SERTRALINE HCL 50 MG TABLET (FP) PO SCH (09:09)
[2018-01-13] MEDS: VITAMIN B COMPLEX W/C COMBO TABLET (FP) PO SCH (09:09)
[2018-01-13] MEDS ORDERED: PT OWN MED DRAWER 7, Y5N ONE ×2 (09:12→20:17)
[2018-01-13] MEDS: NICOTINE 14 MG/24 HOURS TOPICAL PATCH TD SCH (09:21)
[2018-01-13] MEDS: TIMOLOL 0.5% OPHTHALMIC SOL 5 ML BOTTLE OU SCH ×3 (09:21→21:26)
[2018-01-13] MEDS: DORZOLAMIDE 2% HCL OPHTHALMIC SOLUTION 10 ML BOTTLE OU SCH ×3 (09:22→21:26)
--- NOTE | 2018-01-13 10:56 | PN ---
Progress Note (short form) - Note Progress Note: no complaints pt at baseline Vital Signs - 24 hr 01/12/18 01/12/18 01/12/18 17:00 21:00 22:00 Temperature 97.8 F 98.4 F Pulse Rate 71 72 Respiratory 20 16 16 Rate Blood Pressure 121/69 132/79 O2 Sat by Pulse 99 Oximetry (%) 01/13/18 01/13/18 01/13/18 09:00 09:03 13:46 Temperature 98.4 F 98.5 F Pulse Rate 72 70 Respiratory 16 20 Rate Blood Pressure 132/79 112/72 O2 Sat by Pulse 98 Oximetry (%) Current Medications Generic Name Dose Route Start Last Admin Trade Name Freq PRN Reason Stop Dose Admin Acetaminophen 1,000 mg 01/09/18 15:49 Tylenol - PO Q8H PRN FEVER Apixaban 5 mg 01/09/18 22:00 01/13/18 09:09 Eliquis - PO 5 mg BID ESTEFAINA Administration Bupropion HCl 300 mg 01/10/18 10:00 01/13/18 09:09 Wellbutrin Xl - PO 300 mg DAILY ESTEFANIA Administration Dorzolamide HCl 1 drop 01/09/18 22:00 01/13/18 09:22 Trusopt 2% OU 1 drop BID ESTEFANIA Administration Folic Acid 1 mg 01/10/18 10:00 01/13/18 09:09 Folic Acid - PO 1 mg DAILY ESTEFANIA Administration Sodium Chloride 1,000 mls @ 100 mls/hr 01/13/18 10:56 01/13/18 11:40 1/2 Normal Saline IV 100 mls/hr ASDIR ESTEFANIA Administration Latanoprost 1 drop 01/09/18 22:00 01/12/18 23:01 Xalatan 0.005% Eye Drops - OU 1 drop HS ESTEFANIA Administration Levetiracetam 1,000 mg 01/12/18 10:15 01/13/18 09:09 Keppra - PO 1,000 mg BID ESTEFANIA Administration Metoprolol Succinate 25 mg 01/10/18 10:00 01/13/18 09:08 Toprol Xl - PO 25 mg DAILY ESTEFANIA Administration Multivitamins 1 each 01/10/18 10:00 01/13/18 09:09 Total B With C - PO 1 each DAILY ESTEFANIA Administration Nicotine 14 mg 01/10/18 10:00 01/13/18 09:21 Nicoderm Patch - TD 14 mg DAILY ESTEFANIA Administration Sertraline HCl 50 mg 01/10/18 10:00 01/13/18 09:09 Zoloft - PO 50 mg DAILY ESTEFANIA Administration Timolol Maleate 1 drop 01/09/18 22:00 01/13/18 09:21 Timoptic 0.5% OU 1 drop BID ESTEFANIA Administration Laboratory Results - last 24 hr 01/13/18 08:35 Phenytoin 39.0 H* Physical Examination Constitutional: Yes: No Distress. comfortable Eyes: Yes: Conjunctiva Clear, PERRL Neck: Yes: Supple. no jvd Cardiovascular: Yes: Regular Rate and Rhythm Respiratory: Yes: CTA Bilaterally Gastrointestinal: Yes: Soft/ non tender Edema: No Neurological: Yes: Alert, Cran Nerves II-XII Intact, Dysarthria (power 5/5 - in all extremities no gaze), Other Imaging - Results Chest X-ray: Report Reviewed Cat Scan: Report Reviewed EKG: Report Reviewed Assessment/Plan Monitor on tele Dilantin held-- likely dilantin toxicity--> levels increasing continue with iv fluids-->increase iv fluid rate monitor levels mri brain- no infarcts contiue other meds dysphagia diet Problem List - Problems (1) Dilantin toxicity Code(s): T42.0X1A - POISONING BY HYDANTOIN DERIVATIVES, ACCIDENTAL, INIT (2) DVT (deep venous thrombosis) Code(s): I82.409 - ACUTE EMBOLISM AND THOMBOS UNSP DEEP VN UNSP LOWER EXTREMITY (3) Dementia Code(s): F03.90 - UNSPECIFIED DEMENTIA WITHOUT BEHAVIORAL DISTURBANCE
--- NOTE | 2018-01-13 12:06 | PN ---
Progress Note (short form) - Note Progress Note: cc: slurred speech s: no chest pain, palps, dizzy, lightheadedness. Current Medications Current Medications Acetaminophen (Tylenol -) 1,000 mg PO Q8H PRN PRN Reason: FEVER Apixaban (Eliquis -) 5 mg PO BID [facility] Last Admin: 01/13/18 09:09 Dose: 5 mg Bupropion HCl (Wellbutrin Xl -) 300 mg PO DAILY [facility] Last Admin: 01/13/18 09:09 Dose: 300 mg Dorzolamide HCl (Trusopt 2%) 1 drop OU BID [facility] Last Admin: 01/13/18 09:22 Dose: 1 drop Folic Acid (Folic Acid -) 1 mg PO DAILY [facility] Last Admin: 01/13/18 09:09 Dose: 1 mg Sodium Chloride (1/2 Normal Saline) 1,000 mls @ 100 mls/hr IV ASDIR [facility] Latanoprost (Xalatan 0.005% Eye Drops -) 1 drop OU HS [facility] Last Admin: 01/12/18 23:01 Dose: 1 drop Levetiracetam (Keppra -) 1,000 mg PO BID [facility] Last Admin: 01/13/18 09:09 Dose: 1,000 mg Metoprolol Succinate (Toprol Xl -) 25 mg PO DAILY [facility] Last Admin: 01/13/18 09:08 Dose: 25 mg Multivitamins (Total B With C -) 1 each PO DAILY [facility] Last Admin: 01/13/18 09:09 Dose: 1 each Nicotine (Nicoderm Patch -) 14 mg TD DAILY [facility] Last Admin: 01/13/18 09:21 Dose: 14 mg Sertraline HCl (Zoloft -) 50 mg PO DAILY [facility] Last Admin: 01/13/18 09:09 Dose: 50 mg Timolol Maleate (Timoptic 0.5%) 1 drop OU BID [facility] Last Admin: 01/13/18 09:21 Dose: 1 drop Vital Signs Vital Signs Period Temp Pulse Resp BP Sys/Chacon Pulse Ox Last 24 Hr 97.8 F-98.4 F 63-72 16-20 117-132/69-79 98-99 Constitutional: Yes: Well Nourished, No Distress Eyes: No: Sclera Icterus HENT: No: Nasal Congestion Respiratory: Yes: CTA Bilaterally. No: Accessory Muscle Use, Rales, Wheezes Gastrointestinal: Yes: Normal Bowel Sounds. No: Distention, Hepatomegaly, Palpable Mass, Tenderness Cardiovascular: Yes: Regular Rate and Rhythm JVD: No Carotid Bruit: No PMI: Non-Displaced Heart Sounds: Yes: S1, S2. No: Gallop Murmur: No: Systolic Murmur, Diastolic Murmur Extremities: No: Cool, Cyanosis Edema: No Peripheral Pulses: 2+ Left Carotid, 2+ Right Carotid, 2+ Left Doralis Pedis, 2+ Right Dorsalis Pedis Integumentary: No: Jaundice diaphoresis Neurological: confused,slurred speech Psychiatric: No: Agitated ecg: sr nl intervals no ischemic changes tele: sinus, no events echo 11/2017 lv nl size, function, RV severely dilated, flattened IV septum c/w RV pressure overload, Orozco's sign, RA mod to sev dilated, mild AI, mild MR , RVSP 43 mmHg echo 01/2018 RV function improved, no pulm HTN, EF 65%, mild MR, tr TR, RVSP 16 mmHg, mild ao sclerosis cxr: clear lungs a/p: recent PE/dvt: -s/p intra-PA lytics and mechanical thrombectomy by IR -on ac with eliquis -echo at time of PE showed RV enlargement and RV dysfunction c/w PE at that time, resolved on repeat echo -possibly unprovoked event--duration of AC per heme atrial tachycardia: -seen on last admit 11/2017 -likely triggered by acute PE. -now in sinus, cont bb cva, slurred speech -neuro eval - on tele - dilantin level supratherapeutic, holding per neuro
--- NOTE | 2018-01-13 14:23 | PN ---
Progress Note, [employer] - Note Progress Note: Selected Entries 01/11/18 01/11/18 01/11/18 02:00 05:29 10:32 Breakfast 50% Supper Temperature 98.3 F 98.6 F 01/11/18 01/11/18 01/12/18 14:00 18:00 02:25 Breakfast Supper 75% Temperature 98.5 F 98.1 F 98.3 F 01/12/18 08:11 Breakfast Supper Temperature 98.2 F Laboratory Tests 01/10/18 05:30 WBC 7.3 Selected Entries 01/12/18 01/12/18 01/12/18 02:25 08:11 11:47 Breakfast 75% Lunch Temperature 98.3 F 98.2 F 01/12/18 01/12/18 01/12/18 14:00 17:00 19:52 Breakfast Lunch 50% 50% Temperature 97.8 F 01/12/18 01/13/18 01/13/18 22:00 09:03 13:46 Breakfast Lunch 50% Temperature 98.4 F 98.4 F 98.5 F Laboratory Tests 01/10/18 01/11/18 01/12/18 05:30 09:30 10:55 Phenytoin 49.8 H* 48.0 H* 37.9 H* 01/13/18 08:35 Phenytoin 39.0 H* More awake. Confused. Continue nectar thick liquid for now due to high Dilantin level. Silent aspiration can not be r/o at baseline. Continue puree/nectar thick liquids.
[2018-01-13] MEDS: LATANOPROST 0.005% OPHTH SOLN 2.5ML BOTTLE OU SCH ×2 (20:30→21:26)
[2018-01-14] MEDS ORDERED: PT OWN MED DRAWER 7, Y5N ONE ×2 (09:29→16:35)
[2018-01-14] MEDS: FOLIC ACID 1 MG TABLET (FP) PO SCH (09:34)
[2018-01-14] MEDS: SERTRALINE HCL 50 MG TABLET (FP) PO SCH (09:34)
[2018-01-14] MEDS: levETIRAcetam 500 MG TABLET (FP) PO SCH ×2 (09:34→22:02)
[2018-01-14] MEDS: metoPROLOL SUCCINATE 25 MG TAB.SR.24H (FP) PO SCH (09:34)
[2018-01-14] MEDS: APIXABAN 5 MG TABLET PO SCH ×2 (09:34→22:48)
[2018-01-14] MEDS: VITAMIN B COMPLEX W/C COMBO TABLET (FP) PO SCH (09:34)
[2018-01-14] MEDS: TIMOLOL 0.5% OPHTHALMIC SOL 5 ML BOTTLE OU SCH ×2 (09:35→22:03)
[2018-01-14] MEDS: DORZOLAMIDE 2% HCL OPHTHALMIC SOLUTION 10 ML BOTTLE OU SCH ×2 (09:35→22:02)
[2018-01-14] MEDS: NICOTINE 14 MG/24 HOURS TOPICAL PATCH TD SCH (09:35)
--- NOTE | 2018-01-14 12:44 | PN ---
Progress Note (short form) - Note Progress Note: pt seen/ examined chart reviewed sleepy but arousable no distress gets agitated/ confused at times- per nursing staff Vital Signs Temp 98 F 01/14/18 10:00 Pulse 78 01/14/18 10:00 Resp 18 01/14/18 10:00 BP 128/86 01/14/18 10:00 Pulse Ox 96 01/13/18 20:43 Intake & Output 01/13/18 01/14/18 01/14/18 23:59 11:59 23:59 Intake Total 1000 620 Output Total 300 200 Balance 700 420 Intake: IV 750 500 1/2 Normal Saline 1,000 500 ml @ 100 mls/hr IV ASDIR [facility] Rx#:[id number] 1/2 Normal Saline 1,000 240 500 ml @ 83 mls/hr IV ASDIR ESTEFANIA Rx#:[id number] Saline Lock 10 Oral 250 120 Output: Urine 300 200 Void 300 200 Other: Voiding Method Urinal Urinal # Unmeasured Voids Void 2 300 Bowel Movement No Active Medications Acetaminophen (Tylenol -) 1,000 mg PO Q8H PRN PRN Reason: FEVER Apixaban (Eliquis -) 5 mg PO BID [facility] Last Admin: 01/14/18 09:34 Dose: 5 mg Bupropion HCl (Wellbutrin Xl -) 300 mg PO DAILY [facility] Last Admin: 01/14/18 09:34 Dose: 300 mg Dorzolamide HCl (Trusopt 2%) 1 drop OU BID [facility] Last Admin: 01/14/18 09:35 Dose: 1 drop Folic Acid (Folic Acid -) 1 mg PO DAILY [facility] Last Admin: 01/14/18 09:34 Dose: 1 mg Sodium Chloride (1/2 Normal Saline) 1,000 mls @ 100 mls/hr IV ASDIR [facility] Last Admin: 01/13/18 11:40 Dose: 100 mls/hr Latanoprost (Xalatan 0.005% Eye Drops -) 1 drop OU [facility] Last Admin: 01/13/18 21:26 Dose: Not Given Levetiracetam (Keppra -) 1,000 mg PO BID [facility] Last Admin: 01/14/18 09:34 Dose: 1,000 mg Metoprolol Succinate (Toprol Xl -) 25 mg PO DAILY [facility] Last Admin: 01/14/18 09:34 Dose: 25 mg Multivitamins (Total B With C -) 1 each PO DAILY [facility] Last Admin: 01/14/18 09:34 Dose: 1 each Nicotine (Nicoderm Patch -) 14 mg TD DAILY [facility] Last Admin: 01/14/18 09:35 Dose: 14 mg Sertraline HCl (Zoloft -) 50 mg PO DAILY [facility] Last Admin: 01/14/18 09:34 Dose: 50 mg Timolol Maleate (Timoptic 0.5%) 1 drop OU BID [facility] Last Admin: 01/14/18 09:35 Dose: 1 drop CBC, BMP 01/10/18 05:30 01/10/18 05:30 Physical Examination Constitutional: Yes: No Distress. comfortable Eyes: Yes: Conjunctiva Clear Neck: Yes: Supple. no jvd Cardiovascular: Yes: Regular Rate and Rhythm Respiratory: Yes: Clear Gastrointestinal: Yes: Soft/ non tender. bs = Edema: No Neurological: Yes: Sleepy - But arousable. Imaging - Results Chest X-ray: Report Reviewed Cat Scan: Report Reviewed EKG: Report Reviewed Assessment/Plan Stable monitor dilantin levels continue present care Fluids mri brain- no infarcts contiue other meds dysphagia diet d/c tele og for safety Discussed with nursing staff Problem List - Problems (1) Nicotine dependence Code(s): F17.200 - NICOTINE DEPENDENCE, UNSPECIFIED, UNCOMPLICATED (2) Stroke Code(s): I63.9 - CEREBRAL INFARCTION, UNSPECIFIED Qualifiers: Laterality of affected vessel: unspecified (3) Dementia Code(s): F03.90 - UNSPECIFIED DEMENTIA WITHOUT BEHAVIORAL DISTURBANCE (4) Pulmonary embolism Code(s): I26.99 - OTHER PULMONARY EMBOLISM WITHOUT ACUTE COR PULMONALE (5) Schizoaffective disorder Code(s): F25.9 - SCHIZOAFFECTIVE DISORDER, UNSPECIFIED (6) Seizure disorder Code(s): G40.909 - EPILEPSY, UNSP, NOT INTRACTABLE, WITHOUT STATUS EPILEPTICUS (7) Dilantin toxicity Code(s): T42.0X1A - POISONING BY HYDANTOIN DERIVATIVES, ACCIDENTAL, INIT
--- NOTE | 2018-01-14 12:57 | PN ---
Progress Note (short form) - Note Progress Note: cc: slurred speech s: no chest pain, palps, dizzy, lightheadedness. Current Medications Acetaminophen (Tylenol -) 1,000 mg PO Q8H PRN PRN Reason: FEVER Apixaban (Eliquis -) 5 mg PO BID [facility] Last Admin: 01/14/18 09:34 Dose: 5 mg Bupropion HCl (Wellbutrin Xl -) 300 mg PO DAILY [facility] Last Admin: 01/14/18 09:34 Dose: 300 mg Dorzolamide HCl (Trusopt 2%) 1 drop OU BID [facility] Last Admin: 01/14/18 09:35 Dose: 1 drop Folic Acid (Folic Acid -) 1 mg PO DAILY [facility] Last Admin: 01/14/18 09:34 Dose: 1 mg Sodium Chloride (1/2 Normal Saline) 1,000 mls @ 100 mls/hr IV ASDIR [facility] Last Admin: 01/13/18 11:40 Dose: 100 mls/hr Latanoprost (Xalatan 0.005% Eye Drops -) 1 drop OU HS [facility] Last Admin: 01/13/18 21:26 Dose: Not Given Levetiracetam (Keppra -) 1,000 mg PO BID [facility] Last Admin: 01/14/18 09:34 Dose: 1,000 mg Metoprolol Succinate (Toprol Xl -) 25 mg PO DAILY [facility] Last Admin: 01/14/18 09:34 Dose: 25 mg Multivitamins (Total B With C -) 1 each PO DAILY [facility] Last Admin: 01/14/18 09:34 Dose: 1 each Nicotine (Nicoderm Patch -) 14 mg TD DAILY [facility] Last Admin: 01/14/18 09:35 Dose: 14 mg Sertraline HCl (Zoloft -) 50 mg PO DAILY [facility] Last Admin: 01/14/18 09:34 Dose: 50 mg Timolol Maleate (Timoptic 0.5%) 1 drop OU BID [facility] Last Admin: 01/14/18 09:35 Dose: 1 drop Vital Signs Vital Signs Period Temp Pulse Resp BP Sys/Chacon Pulse Ox Last 24 Hr 97.4 F-98.6 F 70-83 18-20 112-138/72-98 96 Constitutional: Yes: Well Nourished, No Distress Eyes: No: Sclera Icterus HENT: No: Nasal Congestion Respiratory: Yes: CTA Bilaterally. No: Accessory Muscle Use, Rales, Wheezes Gastrointestinal: Yes: Normal Bowel Sounds. No: Distention, Hepatomegaly, Palpable Mass, Tenderness Cardiovascular: Yes: Regular Rate and Rhythm JVD: No Carotid Bruit: No PMI: Non-Displaced Heart Sounds: Yes: S1, S2. No: Gallop Murmur: No: Systolic Murmur, Diastolic Murmur Extremities: No: Cool, Cyanosis Edema: No Peripheral Pulses: 2+ Left Carotid, 2+ Right Carotid, 2+ Left Doralis Pedis, 2+ Right Dorsalis Pedis Integumentary: No: Jaundice diaphoresis Neurological: confused,slurred speech Psychiatric: No: Agitated ecg: sr nl intervals no ischemic changes tele: sinus, no events echo 11/2017 lv nl size, function, RV severely dilated, flattened IV septum c/w RV pressure overload, Orozco's sign, RA mod to sev dilated, mild AI, mild MR , RVSP 43 mmHg echo 01/2018 RV function improved, no pulm HTN, EF 65%, mild MR, tr TR, RVSP 16 mmHg, mild ao sclerosis cxr: clear lungs a/p: recent PE/dvt: -s/p intra-PA lytics and mechanical thrombectomy by IR -on ac with eliquis -echo at time of PE showed RV enlargement and RV dysfunction c/w PE at that time, resolved on repeat echo -possibly unprovoked event--duration of AC per heme atrial tachycardia: -seen on last admit 11/2017 -likely triggered by acute PE. -now in sinus, cont bb cva, slurred speech -neuro eval - on tele - dilantin level supratherapeutic, holding per neuro stable from cardiac perspective
[2018-01-14] MEDS: SODIUM CHLORIDE 0.45% 1,000 ML IV SCH (16:41)
--- NOTE | 2018-01-14 18:22 | PN ---
Progress Note (short form) - Note Progress Note: 72 year old male , [place] resident. He has history of schizophrenia, seizure, PE on eliquis. Patient had CT head and it was unmremarkable. Mri of brain is unremarkable , dilantin level is still high. He is confused and agitated He is back to baseline, he is confused but follow command and knows where he is Neurological Examination VSS afebrile Alert oriented x 2 and follow command , restrained as he was agitated EOMI, pupils reactive, no face asymmetry movnig all extremity sensation is normal ct head reviewed dilantin level yeserday is 37 ASSESSMENT/PLAN 1. Transient slurring of speech, due to dilantin toxicity, mri unremarkable, continue to hold dilantin till level are below 20 than dilantin can be started on 200 mg po bid Continue supportive care, Thanking you so much Marlon Dean MD
[2018-01-14] MEDS: LATANOPROST 0.005% OPHTH SOLN 2.5ML BOTTLE OU SCH (22:02)
[2018-01-14] MEDS ORDERED: LORazepam 2 MG/ML SDV VIAL IVPUSH ONE (23:14)
[2018-01-15] MEDS ORDERED: LORazepam 2 MG/ML SDV VIAL IVPUSH ONE (02:30)
[2018-01-15] MEDS ORDERED: PT OWN MED DRAWER 7, Y5N ONE (09:31)
[2018-01-15] MEDS: metoPROLOL SUCCINATE 25 MG TAB.SR.24H (FP) PO SCH (09:32)
[2018-01-15] MEDS: VITAMIN B COMPLEX W/C COMBO TABLET (FP) PO SCH (09:32)
[2018-01-15] MEDS: SERTRALINE HCL 50 MG TABLET (FP) PO SCH (09:32)
[2018-01-15] MEDS: FOLIC ACID 1 MG TABLET (FP) PO SCH (09:32)
[2018-01-15] MEDS: levETIRAcetam 500 MG TABLET (FP) PO SCH (09:33)
[2018-01-15] MEDS: APIXABAN 5 MG TABLET PO SCH (09:33)
[2018-01-15] MEDS: DORZOLAMIDE 2% HCL OPHTHALMIC SOLUTION 10 ML BOTTLE OU SCH (09:34)
[2018-01-15] MEDS: TIMOLOL 0.5% OPHTHALMIC SOL 5 ML BOTTLE OU SCH (09:34)
[2018-01-15] MEDS: NICOTINE 14 MG/24 HOURS TOPICAL PATCH TD SCH (09:34)
[2018-01-15] MEDS ORDERED: FLU VACCINE QUAD 60 MCG/0.5 ML (MDV 18-19) IM ONE (10:00)
[2018-01-15] MEDS ORDERED: LORazepam 2 MG/ML SDV VIAL IVPUSH PRN (11:21)
--- NOTE | 2018-01-15 12:12 | DS ---
Physical Examination Vital Signs: Vital Signs Temperature 98.0 F 01/15/18 06:25 Pulse Rate 95 H 01/15/18 06:25 Respiratory Rate 18 01/15/18 06:25 Blood Pressure 116/82 01/15/18 06:25 O2 Sat by Pulse Oximetry (%) 99 01/14/18 21:00 Constitutional: Yes: No Distress Cardiovascular: Yes: Regular Rate and Rhythm Respiratory: Yes: CTA Bilaterally Gastrointestinal: Yes: Normal Bowel Sounds, Soft. No: Tenderness Edema: No Labs: CBC, BMP 01/10/18 05:30 01/10/18 05:30 Discharge Summary Reason For Visit: CVA Current Active Problems Dilantin toxicity (Acute) Nicotine dependence (Acute) Stroke (Acute) Hospital Course: Admitted for AMS- stroke ruled out Negative MRI brain Pt was found to have very high Dilantin level seen by Cardiology on iv fluids Neurology consulted Dilantin level decreasing pt stable for dc to nh can restart Dilantin once level decreased below 20 Condition: Guarded - Instructions Diet, Activity, Other Instructions: continue Dilantin at 200mg BID when Dilantin is below 20 Referrals: Tiffany Askew MD [Primary Care Provider] - - Home Medications Comprehensive Discharge Medication List: Ambulatory Orders Acetaminophen 1,000 mg PO Q8H PRN 11/27/17 Bupropion HCl [Wellbutrin Xl] 300 mg PO DAILY 11/27/17 Dorzolamide/Timolol/Pf [Cosopt Pf Eye Drops] 1 each OP BID 11/27/17 Folic Acid 1 mg PO DAILY 11/27/17 Latanoprost 0.005% Eye Drops [Xalatan 0.005% Eye Drops -] 1 drop OU HS 11/27/17 Magnesium Hydrox 2400MG/30Ml [Milk of Magnesia -] 30 ml PO ONCE PRN 11/27/17 Sertraline HCl [Zoloft -] 50 mg PO DAILY 11/27/17 Sodium Phosphate,Ripley-Dibasic [Fleet Enema] 133 ml RC DAILY PRN 11/27/17 Vitamin B Complex 1 each PO DAILY 11/27/17 levETIRAcetam [Keppra Oral Solution -] 1,000 mg PO BID 11/27/17 Apixaban [Eliquis] 5 mg PO BID #30 tablet 12/03/17 Metoprolol Succinate [Toprol XL -] 25 mg PO DAILY tab.sr.24h 12/03/17 Gabapentin 100 mg PO Q8H #60 capsule 01/15/18 Nicotine Patch [Nicoderm Patch -] 14 mg TD DAILY #30 patch 01/15/18
[2018-01-15 18:31] VITALS: BP 117/66; PULSE 76; TEMP 97.9
== END 2018-01-15 18:49 | DRG 91 ==
LOC: JER 12:12 → JERBED 14:53 → J4W 01-10 02:37 → J7W 01-14 17:06
PROVIDERS: ADMIT Internal Medicine; ATTEND Internal Medicine
DX: R47.81 Slurred speech (principal); I26.99 Other pulmonary embolism without acute cor pulmonale; I47.1 Supraventricular tachycardia; Z86.711 Personal history of pulmonary embolism; Z79.01 Long term (current) use of anticoagulants; F03.90 Unspecified dementia, unspecified severity, without behavioral disturbance, psychotic disturbance, mood disturbance, and anxiety; F25.9 Schizoaffective disorder, unspecified; I73.9 Peripheral vascular disease, unspecified; R29.704 NIHSS score 4; F17.210 Nicotine dependence, cigarettes, uncomplicated; G40.909 Epilepsy, unspecified, not intractable, without status epilepticus; T42.0X5A Adverse effect of hydantoin derivatives, initial encounter
CPT/HCPCS: 36415; 70450-TC; 70551-TC; 71045-TC-FY; 80053; 80185; 81003; 81015; 82465; 82550; 82962; 83036; 83718; 83721; 83735; 84100; 84478; 84484; 85025; 85610; 86850; 86900; 86901; 87086; 90688; 93005; 93010; 93306-TC; 99285-25; G0008

== ENCOUNTER 2019-05-10 10:12 | Day surgery (SDC) | payer OTHER ==
[2019-05-09 11:02] VITALS: BMI 20.3
[2019-05-10 13:22] VITALS: TEMP 97.9
[2019-05-10 14:02] VITALS: BP 112/69; PULSE 70
== END 2019-05-10 14:00 | disposition home or self-care (01) ==
LOC: FASU-ENDO 10:12 → MERGE 10:12 → EDSEX 11:30 → FASU-ENDO 14:00
PROVIDERS: ATTEND Internal Medicine Gastroenterology
PROC: 0DJD8ZZ Inspection of Lower Intestinal Tract, Via Natural or Artificial Opening Endoscopic (ICD-10-PCS; principal; 2019-05-10 12:23)
DX: Z12.11 Encounter for screening for malignant neoplasm of colon (principal); K64.4 Residual hemorrhoidal skin tags; K64.8 Other hemorrhoids